=== PATIENT | male | born 1930 | race Caucasian/White ===

== ENCOUNTER 2016-08-26 23:16 | Inpatient (IN) | payer MEDICARE, OTHER ==
--- NOTE | 2016-08-26 23:36 | PDOC ---
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 As per EMS, pt received one nebulizer treatment in the ambulance. History could not be obtained from the patient. Pt does not follow commands or answer questions. <Susie Gomez - Last Filed: 08/27/16 06:01> <Benita Lamb - Last Filed: 08/27/16 06:49> - General Stated Complaint: DIFFICULTY BREATHING Time Seen by Provider: 08/26/16 23:25 Past History <Susie Gomez - Last Filed: 08/27/16 06:01> - Past Medical History Anemia: Yes Asthma: No Cancer: No Cardiac Disorders: Yes (afib) CVA: Yes (CAD) COPD: No CHF: Yes Dementia: Yes Diabetes: Yes Dialysis: Yes (MWF rt arm fistula) GI Disorders: Yes (Gerd) Disorders: Yes (obstructive uropathy) HTN: Yes Hypercholesterolemia: Yes Liver Disease: No Suicide Attempt (Hx): No Seizures: No Thyroid Disease: Yes (HYPOTHYROIDISM) - Surgical History Abdominal Surgery: Yes (gallbladder drain placed in november 2014,removed) Appendectomy: No Cardiac Surgery: Yes (CABG,THROMBECTOMY, OPEN HEART SX IN 1968) Cholecystectomy: No Lung Surgery: No Neurologic Surgery: No Orthopedic Surgery: Yes - Immunization History Td Vaccination: Yes Immunization Up to Date: Yes - Psycho/Social/Smoking Cessation Hx Anxiety: No Suicidal Ideation: No Smoking Status: No Smoking History: Former smoker Have you smoked in the past 12 months: No Number of Cigarettes Smoked Daily: 0 Cigars Per Day: 0 Hx Alcohol Use: No Drug/Substance Use Hx: No Substance Use Type: None Hx Substance Use Treatment: No <Benita Lamb - Last Filed: 08/27/16 06:49> - Past Medical History Allergies/Adverse Reactions: Allergies Allergy/AdvReac Type Severity Reaction Status Date / Time No Known Allergies Allergy Verified 07/05/16 16:09 Home Medications: Ambulatory Orders Acetaminophen [Tylenol] 325 mg PO QID 01/24/16 Aspirin [ASA -] 81 mg PO DAILY 01/24/16 Ergocalciferol [Drisdol -] 50,000 unit PO WEEKLY 01/24/16 Ipratropium/Albuterol Sulfate [Iprat-Albut 0.5-3(2.5) mg/3 ml] 3 ml IH QID 01/23 Levothyroxine [Synthroid -] 112 mcg PO DAILY 01/24/16 Magnesium Chloride [Mag64] 64 mg PO DAILY 01/24/16 Midodrine HCl 10 mg PO TID 01/24/16 Mupirocin Ointment [Bactroban 2% Ointment -] 1 applic TP BID 01/24/16 Pantoprazole Sodium [Protonix] 40 mg PO DAILY 01/24/16 Rifaximin [Xifaxan -] 550 mg PO DAILY 01/24/16 Vitamin B Complex 1 each PO DAILY 01/24/16 Lactulose (Oral Use) [Cephulac -] 10 gm PO BID 05/22/16 Lidocaine 5% Patch [Lidoderm Patch -] 1 patch TP DAILY 07/05/16 Sevelamer Carbonate [Renvela] 800 mg PO TID 07/05/16 Vit B Cmplx 3/FA/Vit C/Biotin [Hailey-Lexi Rx Tablet] 0 mg PO DAILY 07/05/16 Ergocalciferol (Vitamin D2) [Vitamin D2] 50,000 unit PO WEEKLY 08/27/16 Esomeprazole Magnesium [Nexium 24Hr] 20 mg PO DAILY 08/27/16 Review of Systems - Review of Systems Able to Perform ROS?: No (could not obtain ) <Susie Gomez - Last Filed: 08/27/16 06:01> *Physical Exam - Vital Signs Last Vital Signs Temp Pulse Resp BP Pulse Ox 98.5 F 86 24 86/45 90 L 08/26/16 23:25 08/26/16 23:25 08/26/16 23:25 08/26/16 23:25 08/26/16 23:25 - Physical Exam Comments: 08/27/16 00:42 GENERAL: + A&Ox0. HEAD: Normal with no signs of trauma. EYES: PERRLA, EOMI, sclera anicteric, conjunctiva clear. ENT: Ears normal, nares patent, oropharynx clear without exudates. Moist mucous membranes. NECK: Normal range of motion, supple without lymphadenopathy, JVD, or masses. LUNGS: +respiratory distress. Breath sounds equal, clear to auscultation bilaterally. No wheezes, and no crackles. HEART:Regular rate and rhythm, normal S1 and S2 without murmur, rub or gallop. ABDOMEN: Soft, nontender, normoactive bowel sounds. No guarding, no rebound. EXTREMITIES: Normal range of motion, no edema. No clubbing or cyanosis. No erythema, or tenderness. NEUROLOGICAL: Cranial nerves II through XII grossly intact. Normal speech. No focal neurological deficits. MUSCULOSKELETAL: Back non-tender to palpation, no CVA tenderness SKIN: Warm, Dry, normal turgor, no rashes or lesions noted. <Susie Gomez - Last Filed: 08/27/16 06:01> ED Treatment Course - LABORATORY CBC & Chemistry Diagram: 08/27/16 00:15 08/27/16 00:15 <Susie Gomez - Last Filed: 08/27/16 06:01> - LABORATORY CBC & Chemistry Diagram: 08/27/16 00:15 08/27/16 00:15 <Benita Lamb - Last Filed: 08/27/16 06:49> Medical Decision Making - Medical Decision Making 08/27/16 05:57 Dr. Jean Claude Muro was paged through his service. 08/27/16 06:01 case was discussed with Dr. Muro <Susie Gomez - Last Filed: 08/27/16 06:01> - Medical Decision Making 08/27/16 06:47 Pt comes from the [place] with SOB. He is unable to add to his history, as he is somnolent and unable to answer questions. He has a long history of medical problems. He has no fever in the ER, but he has a hisotry of COPD, as well as a history of ESRD, and he will be treated with antibiotics as well as solumedrol , and he will be treated with lasix gently 20mg, as his BP is 90s systolic. Pt will be admitted to his PMD Dr. Muro. <Benita Lamb - Last Filed: 08/27/16 06:49> *DC/Admit/Observation/Transfer - Attestations Scribe Attestion: 08/27/16 00:43 Documentation prepared by Susie Gomez, acting as medical record coder for Benita Lamb MD. <Susie Gomez - Last Filed: 08/27/16 06:01> - Discharge Dispostion Admit: Yes <Benita Lamb - Last Filed: 08/27/16 06:49> Diagnosis at time of Disposition: COPD exacerbation - Referrals
[2016-08-26 23:38] VITALS: BMI 35.9
[2016-08-27 01:00] LABS: BASOPHIL 2.4 % (0-2.0); EOSINOPHIL 4.8 % (0-4.5); MCH 33.3 pg (25.7-33.7); MEAN CELL VOLUME 107.4 fl (80-96); MEAN PLT VOLUME 8.6 fl (7.5-11.1); NEUTROPHILS 64.4 % (42.8-82.8); PLATELET COUNT 179 K/MM3 (134-434); RDW 21.3 % (11.9-15.9); WHITE BLOOD COUNT 5.5 K/mm3 (4.0-10.0)
[2016-08-27 02:01] LABS: ANISOCYTOSIS 2+; HYPOCHROMIA 2+; PLATELET COMMENT2 NO CLOTTING DETECTED; PLATELET ESTIMATE ADEQUATE (NORMAL); POIKILOCYTOSIS 2+; POLYCHROMASIA 1+
[2016-08-27 02:17] LABS: ALBUMIN 3.4 g/dl (3.4-5.0); BILIRUBIN,TOTAL 0.7 mg/dL (0.2-1.0); CALCIUM 8.8 mg/dL (8.5-10.1); CREATININE 5.3 mg/dL (0.7-1.3); TOT PROT 7.1 g/dl (6.4-8.2)
[2016-08-27] MEDS ORDERED: methylPREDNISolone NA SUCC 125 MG/2 ML VIAL IVPB ONE (02:46)
[2016-08-27] MEDS ORDERED: PIPERACILLIN/TAZOB 3.375 GM 3.375 GM in DEXTROSE 5%-WATER - 50 ML IVPB ONE (02:47)
[2016-08-27] MEDS ORDERED: PIPERACILLIN/TAZOB 3.375 GM 50 ML IVPB ONE (03:15)
[2016-08-27] MEDS ORDERED: methylPREDNISolone NA SUCC 125 MG/2 ML VIAL ONE (03:15)
[2016-08-27] MEDS ORDERED: FUROSEMIDE 40 MG/4 ML INJECTABLE VIAL IVPB ONE (06:02)
[2016-08-27] MEDS ORDERED: FUROSEMIDE 40 MG/4 ML INJECTABLE VIAL ONE (06:08)
[2016-08-27] MEDS: LEVOTHYROXINE NA 112 MCG TABLET (FP) PO SCH (09:10)
[2016-08-27] MEDS: SEVELAMER CARBONATE 800 MG TAB (FP) PO SCH ×3 (09:10→17:55)
[2016-08-27] MEDS ORDERED: PATIENT'S OWN MEDICATION (NON-FORMULARY) (Vit B Cmplx 3/Fa/Vit C/Biotin [Rena-Vite Rx Tabl PO SCH (10:00)
[2016-08-27] MEDS: ASPIRIN 81 MG CHEWABLE TABLETS PO SCH (10:05)
[2016-08-27] MEDS: MUPIROCIN 2% TOPICAL OINTMENT 22 GM TUBE TP SCH ×2 (10:05→21:42)
[2016-08-27] MEDS: LACTULOSE 20 GM/30 ML UDC (FOR ORAL USE ONLY) PO SCH ×2 (10:05→21:41)
[2016-08-27] MEDS: PANTOPRAZOLE 20 MG TABLET (FP) PO SCH (10:05)
[2016-08-27] MEDS: MAGNESIUM CL 64 MG TABLET.SA PO SCH (10:06)
[2016-08-27] MEDS: VITAMIN B COMPLEX W/C COMBO TABLET (FP) PO SCH (10:06)
[2016-08-27] MEDS: ACETAMINOPHEN 325 MG TABLET (FP) PO SCH ×4 (10:06→21:42)
[2016-08-27] MEDS: RIFAXIMIN 550 MG TABLET (UD) PO SCH (10:06)
--- NOTE | 2016-08-27 10:32 | CONSULT ---
Consult - text type - Consultation Consultation Note: Renal Consult for ESRD/Volume Overload This is a 86 year old Gentleman with PMhx of ESRD on HD (MWF), Chronic Cholecystitis, Dementia, DM, Hypertension, Afib with SOB and found to have extrensive pulmonary vascular congestion and hypoxia. Pt had regualr dialysis on Sunday. Pt is very lethargic and nto able to provide any further history. Pt on 100% NRB. Pt has chronic hypotension that limits UF during dialysis. BP is marginal but stable. No fevers. PMhx: as above Allergies: NKDA Family hx: NC Social Hx: No T/A/D ROS: unable to obtain because of clinical status Home Meds: Medication Instructions Recorded Acetaminophen [Tylenol] 325 mg PO QID 01/24/16 Aspirin [ASA -] 81 mg PO DAILY 01/24/16 Ergocalciferol [Drisdol -] 50,000 unit PO WEEKLY 01/24/16 Ipratropium/Albuterol Sulfate 3 ml IH QID 01/24/16 [Iprat-Albut 0.5-3(2.5) mg/3 ml] Levothyroxine [Synthroid -] 112 mcg PO DAILY 01/24/16 Magnesium Chloride [Mag64] 64 mg PO DAILY 01/24/16 Midodrine HCl 10 mg PO TID 01/24/16 Mupirocin Ointment [Bactroban 2% 1 applic TP BID 01/24/16 Ointment -] Pantoprazole Sodium [Protonix] 40 mg PO DAILY 01/24/16 Rifaximin [Xifaxan -] 550 mg PO DAILY 01/24/16 Vitamin B Complex 1 each PO DAILY 01/24/16 Lactulose (Oral Use) [Cephulac -] 10 gm PO BID 05/22/16 Lidocaine 5% Patch [Lidoderm Patch 1 patch TP DAILY 07/05/16 -] Sevelamer Carbonate [Renvela] 800 mg PO TID 07/05/16 Vit B Cmplx 3/FA/Vit C/Biotin 0 mg PO DAILY 07/05/16 [Hailey-Lexi Rx Tablet] Ergocalciferol (Vitamin D2) 50,000 unit PO WEEKLY 08/27/16 [Vitamin D2] Esomeprazole Magnesium [Nexium 20 mg PO DAILY 01/22/17 24Hr] Vital Signs Temperature 98.5 F 08/26/16 23:25 Pulse Rate 90 08/27/16 09:18 Respiratory Rate 20 08/27/16 09:18 Blood Pressure 95/51 08/27/16 09:18 O2 Sat by Pulse Oximetry (%) 98 08/27/16 09:18 Intake & Output 08/24/16 08/25/16 08/26/16 08/27/16 23:59 23:59 23:59 23:59 Weight 250 lb Gen: Lethargic, respond to painful stimuli HEENT: NC/AT, midl jvd, Neck supple CVS: RRR, No M/R Lungs: Dec BS throughout the lung mandujano Abd: soft NT/ND Ext: No edema, clubbing or cyanosis Neuro: No folowing commands CBC, BMP 08/27/16 00:15 08/27/16 00:15 Laboratory Tests 08/27/16 00:15 Calcium 8.8 Albumin 3.4 Current Medications Acetaminophen (Tylenol -) 325 mg PO QID [facility] Last Admin: 08/27/16 10:06 Dose: Not Given Aspirin (Asa -) 81 mg PO DAILY [facility] Last Admin: 08/27/16 10:05 Dose: Not Given Ergocalciferol (Drisdol -) 50,000 unit PO We@1000 [facility] Heparin Sodium (Porcine) (Heparin -) 5,000 unit SQ BID [facility] Lactulose (Cephulac (Oral Use)) 10 gm PO BID [facility] Last Admin: 08/27/16 10:05 Dose: Not Given Levothyroxine Sodium (Synthroid -) 112 mcg PO AM [facility] Last Admin: 08/27/16 09:10 Dose: Not Given Lidocaine (Lidoderm Patch -) 1 patch TP DAILY [facility] Magnesium Chloride (Slow-Mag -) 64 mg PO DAILY [facility] Last Admin: 08/27/16 10:06 Dose: Not Given Midodrine (Proamatine -) 10 mg PO TID-MID [facility] Multivitamins (Total B With C -) 1 each PO DAILY [facility] Last Admin: 08/27/16 10:06 Dose: Not Given Mupirocin (Bactroban 2% Ointment -) 1 applic TP BID [facility] Last Admin: 08/27/16 10:05 Dose: Not Given Non-Formulary Medication (Vit B Cmplx 3/Fa/Vit C/Biotin [Hailey-Lexi Rx Tablet]) 1 tab PO DAILY [facility] Pantoprazole Sodium (Protonix -) 20 mg PO DAILY [facility] Last Admin: 08/27/16 10:05 Dose: Not Given Rifaximin (Xifaxan -) 550 mg PO DAILY [facility] Last Admin: 08/27/16 10:06 Dose: Not Given Sevelamer Carbonate (Renvela -) 800 mg PO TIDCM [facility] Last Admin: 08/27/16 09:10 Dose: Not Given A/P This is a 86 year old Gentleman with PMhx of ESRD on HD (MWF), Chronic Cholecystitis, Dementia, DM, Hypertension, Afib with SOB and found to have extrensive pulmonary vascular congestion and hypoxia #SOB/Hypoxia/Fluid over laod/CHF/AMS Pt will need urgent dialysis for fluid removal Diuretics unlikely to be of benefit given advanced kidney disease continue supplaental O2 Check ABB to r/o retention given AMS ICU Evalulaion - Discussed with Dr. Coates can be transferred to ICU May need BIPAP #ESRD Plan for urgent HD today Goal UF 2-2.5L with albumin and Midodrine support additional HD/UF as needed to achieve evolemia #Anemia Hgb at [facility] Thank you will follow Jamir Wilson DO
--- NOTE | 2016-08-27 10:43 | HP ---
Admitting History and Physical - Admission Chief Complaint: low O2 sats History of Present Illness[facility]. has been havign fluid overload, generally treatmed with his dialysis. Nephew notes that patient was beign considered for extra dialysis treatments due to fluid overload, but as the week ended, notes that it was determined to hold off additional treatment. However, oxygen saturation found to be in 80's yesterday and CXR at [place] reportedly showed "fluid", so sent to hospital here. Patient lethargic, unable to give additional history, but nephew notes patient had some increased swelling in fingers and arms, which seems improved currently (did receive a dose of lasix in ED). No fevers noted. Patient had a his AV graft changed recently due to infeciton. - Past Medical History SIGN MAINTENANCE: Yes: Dementia Cardiovascular: Yes: CAD, CHF, HTN, Hyperlipdemia Gastrointestinal: Yes: Other (COLON POLYPS) Hepatobiliary: Yes: Cholelithiasis, Cholecystitis Renal/: Yes: Renal Failure, Renal Inusuff, Hemodialysis Heme/Onc: Yes: Anemia - Past Surgical History Past Surgical History: Yes: CABG - Smoking History Smoking history: Former smoker Have you smoked in the past 12 months: No Aproximately how many cigarettes per day: 0 - Alcohol/Substance Use Hx Alcohol Use: No - Social History ADL: Support Services History of Recent Travel: No Home Medications - Allergies Allergies/Adverse Reactions: Allergies Allergy/AdvReac Type Severity Reaction Status Date / Time No Known Allergies Allergy Verified 07/05/16 16:09 - Home Medications Home Medications: Ambulatory Orders Acetaminophen [Tylenol] 325 mg PO QID 01/24/16 Aspirin [ASA -] 81 mg PO DAILY 01/24/16 Ergocalciferol [Drisdol -] 50,000 unit PO WEEKLY 01/24/16 Ipratropium/Albuterol Sulfate [Iprat-Albut 0.5-3(2.5) mg/3 ml] 3 ml IH QID 01/23 Levothyroxine [Synthroid -] 112 mcg PO DAILY 01/24/16 Magnesium Chloride [Mag64] 64 mg PO DAILY 01/24/16 Midodrine HCl 10 mg PO TID 01/24/16 Mupirocin Ointment [Bactroban 2% Ointment -] 1 applic TP BID 01/24/16 Pantoprazole Sodium [Protonix] 40 mg PO DAILY 01/24/16 Rifaximin [Xifaxan -] 550 mg PO DAILY 01/24/16 Vitamin B Complex 1 each PO DAILY 01/24/16 Lactulose (Oral Use) [Cephulac -] 10 gm PO BID 05/22/16 Lidocaine 5% Patch [Lidoderm Patch -] 1 patch TP DAILY 07/05/16 Sevelamer Carbonate [Renvela] 800 mg PO TID 07/05/16 Vit B Cmplx 3/FA/Vit C/Biotin [Hailey-Lexi Rx Tablet] 0 mg PO DAILY 07/05/16 Ergocalciferol (Vitamin D2) [Vitamin D2] 50,000 unit PO WEEKLY 08/27/16 Esomeprazole Magnesium [Nexium 24Hr] 20 mg PO DAILY 08/27/16 Family Disease History - Family Disease History Family History: Unable to Obtain Review of Systems - Review of Systems Constitutional: reports: Lethargy. denies: Fever, Loss of Appetite HENT: denies: Difficult Swallowing, Epistaxis, Throat Pain Neck: denies: Pain on Movement, Stiffness, Tenderness Cardiovascular: denies: Chest Pain, Palpitations Respiratory: denies: Cough, SOB Gastrointestinal: reports: Bloating. denies: Abdominal Pain, Constipation, Diarrhea, Vomiting Physical Examination Vital Signs: Vital Signs Temperature 98.5 F 08/26/16 23:25 Pulse Rate 90 08/27/16 09:18 Respiratory Rate 20 08/27/16 09:18 Blood Pressure 95/51 08/27/16 09:18 O2 Sat by Pulse Oximetry (%) 98 08/27/16 09:18 Constitutional: Yes: Other (lethargic) HENT: Yes: Atraumatic, Normocephalic Cardiovascular: Yes: Regular Rate and Rhythm, S1, S2. No: Murmur Respiratory: Yes: Regular, Other (upper airway congestion) Gastrointestinal: Yes: Normal Bowel Sounds, Soft, Abdomen, Obese. No: Distention, Tenderness Edema: Yes Edema: LLE: Trace, RLE: Trace Neurological: Yes: Lethargy Labs: Laboratory Last Values WBC 5.5 K/mm3 (4.0-10.0) 08/27/16 00:15 RBC 3.23 M/mm3 (4.00-5.60) L 08/27/16 00:15 Hgb 10.8 GM/dL (11.7-16.9) L 08/27/16 00:15 Hct 34.7 % (35.4-49) L 08/27/16 00:15 MCV 107.4 fl (80-96) H 08/27/16 00:15 MCHC 31.0 g/dl (32.0-35.9) L 08/27/16 00:15 RDW 21.3 % (11.9-15.9) H 08/27/16 00:15 Plt Count 179 K/MM3 (134-434) D 08/27/16 00:15 MPV 8.6 fl (7.5-11.1) 08/27/16 00:15 Neutrophils % 64.4 % (42.8-82.8) 08/27/16 00:15 Lymphocytes % 15.9 % (8-40) 08/27/16 00:15 Monocytes % 12.5 % (3.8-10.2) H 08/27/16 00:15 Eosinophils % 4.8 % (0-4.5) H D 08/27/16 00:15 Basophils % 2.4 % (0-2.0) H D 08/27/16 00:15 Differential Comment Slide scanned 08/27/16 00:15 Platelet Estimate Adequate (NORMAL) 08/27/16 00:15 Platelet Comment No clumping noted 08/27/16 00:15 Platelet Comment No clotting detected 08/27/16 00:15 Polychromasia 1+ 08/27/16 00:15 Hypochromic-Microcytic 2+ 08/27/16 00:15 Poikilocytosis 2+ 08/27/16 00:15 Anisocytosis 2+ 08/27/16 00:15 Macrocytosis 2+ 08/27/16 00:15 Sodium 144 mmol/L (136-145) 08/27/16 00:15 Potassium 4.2 mmol/L (3.5-5.1) D 08/27/16 00:15 Chloride 107 mmol/L (98-107) 08/27/16 00:15 Carbon Dioxide 25 mmol/L (21-32) 08/27/16 00:15 Anion Gap 12 (8-16) 08/27/16 00:15 BUN 34 mg/dL (7-18) H D 08/27/16 00:15 Creatinine 5.3 mg/dL (0.7-1.3) H D 08/27/16 00:15 Creat Clearance w eGFR 10.29 (>60) 08/27/16 00:15 Random Glucose 105 mg/dL (74-106) 08/27/16 00:15 Calcium 8.8 mg/dL (8.5-10.1) 08/27/16 00:15 Total Bilirubin 0.7 mg/dL (0.2-1.0) D 08/27/16 00:15 AST 21 U/L (15-37) 08/27/16 00:15 ALT 20 U/L (12-78) 08/27/16 00:15 Alkaline Phosphatase 173 U/L (45-117) H 08/27/16 00:15 Total Protein 7.1 g/dl (6.4-8.2) 08/27/16 00:15 Albumin 3.4 g/dl (3.4-5.0) 08/27/16 00:15 Imaging - Results Chest X-ray: Report Reviewed (congestive changes, worsened compared to previous) Problem List - Problems (1) Fluid excess Assessment/Plan: -to get dialysis today (discussed with renal) and to go to ICU given lethargy and low blood pressure Code(s): E87.70 - FLUID OVERLOAD, UNSPECIFIED (2) End stage renal disease on dialysis Assessment/Plan: -renal evaluated -for dialysis today Code(s): N18.6 - END STAGE RENAL DISEASE Z99.2 - DEPENDENCE ON RENAL DIALYSIS (3) Hypoxia Assessment/Plan: -improved with supplemental O2 Code(s): R09.02 - HYPOXEMIA (4) Hypotension Assessment/Plan: -baseline low blood pressure (on Midodrine) -usually systolic BP in upper 80's to 90 Code(s): I95.9 - HYPOTENSION, UNSPECIFIED Qualifiers: Hypotension type: hemodialysis-associated hypotension Qualified Code(s) : I95.3 - Hypotension of hemodialysis (5) Atrial fibrillation Assessment/Plan: -not on AC as fall risk Code(s): I48.91 - UNSPECIFIED ATRIAL FIBRILLATION (6) Cholecystitis, chronic Assessment/Plan: -stable Code(s): K81.1 - CHRONIC CHOLECYSTITIS (7) Hepatic encephalopathy Assessment/Plan: -check [place] level (may need extra dose lactulose) Code(s): K72.90 - HEPATIC FAILURE, UNSPECIFIED WITHOUT COMA
[2016-08-27 11:07] LABS: ALBUMIN 3.4 g/dl (3.4-5.0); BILIRUBIN,TOTAL 0.8 mg/dL (0.2-1.0); CALCIUM 8.7 mg/dL (8.5-10.1); CREATININE 5.6 mg/dL (0.7-1.3); TOT PROT 7.2 g/dl (6.4-8.2)
[2016-08-27 11:20] LABS: ARTERIAL BLD GAS O2 SATURATION 99.6 % (90-98.9); ARTERIAL BLOOD GAS pH 7.11 (7.35-7.45)
[2016-08-27 11:21] LABS: ARTERIAL BLOOD GAS BASE EXCESS -8.9 meq/l (-2-2)
[2016-08-27 11:22] LABS: ALLENS TEST POSITIVE; ART PUNCT SITE RIGHT RADIAL; LPM/O2% 100%; PT. ON O2? YES; TYPE OF O2 NRM
--- NOTE | 2016-08-27 11:57 | CONSULT ---
Consult Consult Specialty:: PULMONARY/CCM Referred by:: Dr. Wilson Reason for Consultation:: respiratory failure - History of Present Illness Chief Complaint: hypoxia History of Present Illness: 86yo male with h/o HTN, CAD s/p CABG, ESRD on HD, RV dysfunction who was sent from the senior living after being found hypoxic and lethargic. Pt currently in the ICU on NRB, lethargic, unable to provide further history at this time. Per chart, he had not missed any dialysis sessions but was noted by family to have increased swelling in his extremities. CXR done on admission showing large bilateral pleural effusions and pulmonary vascular congestion. No fevers recorded, ABG showing mixed metabolic and respiratory acidosis. BiPAP called stat to bedside as pt DNR/DNI. 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 Cardio/Vascular: Yes: CAD, CHF, HTN, Hyperlipdemia Gastrointestinal: Yes: Other (COLON POLYPS) Hepatobiliary: Yes: Cholelithiasis, Cholecystitis Renal/: Yes: Renal Failure, Renal Inusuff, Hemodialysis - Past Surgical History Past Surgical History: Yes: AV Fistula/Graft, CABG - Alcohol/Substance Use Hx Alcohol Use: No - Smoking History Smoking history: Former smoker Have you smoked in the past 12 months: No Aproximately how many cigarettes per day: 0 - Social History ADL: Support Services History of Recent Travel: No Home Medications - Allergies Allergies/Adverse Reactions: Allergies Allergy/AdvReac Type Severity Reaction Status Date / Time No Known Allergies Allergy Verified 07/05/16 16:09 - Home Medications Home Medications: Ambulatory Orders Acetaminophen [Tylenol] 325 mg PO QID 01/24/16 Aspirin [ASA -] 81 mg PO DAILY 01/24/16 Ergocalciferol [Drisdol -] 50,000 unit PO WEEKLY 01/24/16 Ipratropium/Albuterol Sulfate [Iprat-Albut 0.5-3(2.5) mg/3 ml] 3 ml IH QID 01/23 Levothyroxine [Synthroid -] 112 mcg PO DAILY 01/24/16 Magnesium Chloride [Mag64] 64 mg PO DAILY 01/24/16 Midodrine HCl 10 mg PO TID 01/24/16 Mupirocin Ointment [Bactroban 2% Ointment -] 1 applic TP BID 01/24/16 Pantoprazole Sodium [Protonix] 40 mg PO DAILY 01/24/16 Rifaximin [Xifaxan -] 550 mg PO DAILY 01/24/16 Vitamin B Complex 1 each PO DAILY 01/24/16 Lactulose (Oral Use) [Cephulac -] 10 gm PO BID 05/22/16 Lidocaine 5% Patch [Lidoderm Patch -] 1 patch TP DAILY 07/05/16 Sevelamer Carbonate [Renvela] 800 mg PO TID 07/05/16 Vit B Cmplx 3/FA/Vit C/Biotin [Hailey-Lexi Rx Tablet] 0 mg PO DAILY 07/05/16 Ergocalciferol (Vitamin D2) [Vitamin D2] 50,000 unit PO WEEKLY 08/27/16 Esomeprazole Magnesium [Nexium 24Hr] 20 mg PO DAILY 08/27/16 Family Disease History - Family Disease History Family History: Unable to Obtain Review of Systems Unable to obtain ROS, reason: pt lethargic Physical Exam Vital Signs: Vital Signs Temperature 98.5 F 08/27/16 10:37 Pulse Rate 82 08/27/16 11:36 Respiratory Rate 16 08/27/16 11:36 Blood Pressure 96/50 08/27/16 11:36 O2 Sat by Pulse Oximetry (%) 99 08/27/16 11:36 Constitutional: Yes: Moderate Distress (tachypneic at rest, lethargic) Eyes: Yes: Conjunctiva Clear, EOM Intact HENT: Yes: Atraumatic, Normocephalic Neck: Yes: Supple, Trachea Midline Cardiovascular: Yes: Regular Rate and Rhythm Respiratory: Yes: Rhonchi Gastrointestinal: Yes: Normal Bowel Sounds, Soft. No: Tenderness Extremities: Yes: Other (RUE AVG) Edema: No Neurological: Yes: Lethargy Labs: CBC, BMP 08/27/16 10:33 Imaging - Results Chest X-ray: Report Reviewed, Image Reviewed (large bilateral effusions, pulmonary vascular congestion) Problem List - Problems (1) Acute hypercapnic respiratory failure Code(s): J96.02 - ACUTE RESPIRATORY FAILURE WITH HYPERCAPNIA (2) Altered mental status Code(s): R41.82 - ALTERED MENTAL STATUS, UNSPECIFIED (3) End stage renal disease on dialysis Code(s): N18.6 - END STAGE RENAL DISEASE Z99.2 - DEPENDENCE ON RENAL DIALYSIS (4) Pleural effusion Code(s): J90 - PLEURAL EFFUSION, NOT ELSEWHERE CLASSIFIED (5) Acute on chronic diastolic (congestive) heart failure Code(s): I50.33 - ACUTE ON CHRONIC DIASTOLIC (CONGESTIVE) HEART FAILURE (6) Liver cirrhosis Code(s): K74.60 - UNSPECIFIED CIRRHOSIS OF LIVER (7) Hepatic encephalopathy Code(s): K72.90 - HEPATIC FAILURE, UNSPECIFIED WITHOUT COMA (8) Atrial fibrillation Code(s): I48.91 - UNSPECIFIED ATRIAL FIBRILLATION Assessment/Plan Altered Mental Status Acute Hypercapneic Respiratory Failure ESRD on HD Acute on Chronic LV Diastolic Heart Failure Atrial Fibrillation RV Dysfunction Pleural Effusions Liver Cirrhosis r/o Hepatic Encephalopathy - placed on BiPAP 15/5 with adequate tidal volumes - emergent HD with ultrafiltration - f/u ammonia level - check ABG after HD - cycle cardiac enzymes to r/o [place] - echocardiogram - aspiration precautions - titrate FiO2 to keep SpO2 >90% - may need NGT for meds - DVT/GI prophylaxis - prognosis guarded - ICU monitoring Thank you for this consult Adalberto Coates MD
[2016-08-27 12:56] LABS: TROPONIN I 0.22 ng/ml (0.00-0.05)
[2016-08-27] MEDS: ALBUMIN HUMAN 25% 100 ML VIAL IVPB SCH ×4 (13:30→15:00)
--- NOTE | 2016-08-27 13:31 | PN ---
Progress Note (short form) - Note Progress Note: Patient transfered last night from [facility] due to hypoxia and change in mental status Over last week patient was known to be fluid overloaded -- recent CXR showed bilat pleural effusion. He did not skip any HD treatment ( HD - MWF) Admitted to ICU patient on bipap niece at bedside ( Sisi Berrios -HCP) patient unresponsive to verbal stimuli withdraws to painful discussed with Sisi berrios ( HCP)- possibility of using pressors to support BP espeially during HD / she declines stating the patient has made his wishes clear and the family agrees. They do not want a central line placement / no intubation / no resuscitation ( documents have been forwarded from [facility]) I have spoken to family in the past -- their wishes have been consistent. Vital Signs Period Temp Pulse Resp BP Sys/Peck Pulse Ox Last 24 Hr 98.5 F-98.5 F 72-96 16-24 76-98/41-55 90-[address] sats at 77-88 % Bp 95/67 not responding to verbal stimuli lungs decreased BS bilat on lateral / rhonchi anteriorly abd soft non tender ext + edema scheduled for HD today discussed with niece ability to dialyze will be limited by patients blood pressure she understands -- discussed care with Nurse and padder they will inform renal and proceed with HD as tolerated Intake & Output 08/24/16 08/25/16 08/26/16 08/27/16 23:59 23:59 23:59 23:59 Weight 250 lb Active Medications Acetaminophen (Tylenol -) 325 mg PO QID [facility] Last Admin: 08/27/16 10:06 Dose: Not Given Aspirin (Asa -) 81 mg PO DAILY [facility] Last Admin: 08/27/16 10:05 Dose: Not Given Ergocalciferol (Drisdol -) 50,000 unit PO We@1000 [facility] Heparin Sodium (Porcine) (Heparin -) 5,000 unit SQ BID [facility] Lactulose (Cephulac (Oral Use)) 10 gm PO BID [facility] Last Admin: 08/27/16 10:05 Dose: Not Given Levothyroxine Sodium (Synthroid -) 112 mcg PO AM [facility] Last Admin: 08/27/16 09:10 Dose: Not Given Lidocaine (Lidoderm Patch -) 1 patch TP DAILY [facility] Magnesium Chloride (Slow-Mag -) 64 mg PO DAILY [facility] Last Admin: 08/27/16 10:06 Dose: Not Given Midodrine (Proamatine -) 10 mg PO TID-MID [facility] Multivitamins (Total B With C -) 1 each PO DAILY [facility] Last Admin: 08/27/16 10:06 Dose: Not Given Mupirocin (Bactroban 2% Ointment -) 1 applic TP BID [facility] Last Admin: 08/27/16 10:05 Dose: Not Given Non-Formulary Medication (Vit B Cmplx 3/Fa/Vit C/Biotin [Hailey-Lexi Rx Tablet]) 1 tab PO DAILY [facility] [place] Pantoprazole Sodium (Protonix -) 20 mg PO DAILY [facility] Last Admin: 08/27/16 10:05 Dose: Not Given Rifaximin (Xifaxan -) 550 mg PO DAILY [facility] Last Admin: 08/27/16 10:06 Dose: Not Given Sevelamer Carbonate (Renvela -) 800 mg PO TIDCM [facility] Last Admin: 08/27/16 09:10 Dose: Not Given Laboratory Results - last 24 hr 08/27/16 08/27/16 08/27/16 00:15 00:15 10:32 WBC 5.5 RBC 3.23 L Hgb 10.8 L Hct 34.7 L MCV 107.4 H MCHC 31.0 L RDW 21.3 H Plt Count 179 D MPV 8.6 Neutrophils % 64.4 Lymphocytes % 15.9 Monocytes % 12.5 H Eosinophils % 4.8 H D Basophils % 2.4 H D Differential Comment Slide scanned Platelet Estimate Adequate Platelet Comment No clotting detected Polychromasia 1+ Hypochromic-Microcytic 2+ Poikilocytosis 2+ Anisocytosis 2+ Macrocytosis 2+ Anticoagulation Therapy Y Puncture Site Right radial ABG pH 7.11 L* ABG pCO2 at Pt Temp 68.6 H* ABG pO2 at Pt Temp 226.0 H* ABG HCO3 21.0 L ABG O2 Sat (Measured) 99.6 H* ABG O2 Content 15.3 ABG Base Excess -8.9 L Rodger Test Positive O2 Delivery Device Nrm Oxygen Flow Rate 100% Vent Mode Y Vent Rate Y Mechanical Rate Y Pressure Support Vent Y Sodium 144 Potassium 4.2 D Chloride 107 Carbon Dioxide 25 Anion Gap 12 BUN 34 H D Creatinine 5.3 H D Creat Clearance w eGFR 10.29 Random Glucose 105 Calcium 8.8 Total Bilirubin 0.7 D AST 21 ALT 20 Alkaline Phosphatase 173 H Ammonia Creatine Kinase Troponin I Total Protein 7.1 Albumin 3.4 08/27/16 08/27/16 10:33 11:05 WBC RBC Hgb Hct MCV MCHC RDW Plt Count MPV Neutrophils % Lymphocytes % Monocytes % Eosinophils % Basophils % Differential Comment Platelet Estimate Platelet Comment Polychromasia Hypochromic-Microcytic Poikilocytosis Anisocytosis Macrocytosis Anticoagulation Therapy Puncture Site ABG pH ABG pCO2 at Pt Temp ABG pO2 at Pt Temp ABG HCO3 ABG O2 Sat (Measured) ABG O2 Content ABG Base Excess Rodger Test O2 Delivery Device Oxygen Flow Rate Vent Mode Vent Rate Pressure Support Vent Sodium 142 Potassium 4.9 Chloride 110 H Carbon Dioxide 23 Anion Gap 9 BUN 39 H Creatinine 5.6 H Creat Clearance w eGFR 9.66 Random Glucose 148 H D Calcium 8.7 Total Bilirubin 0.8 AST 29 D ALT 24 Alkaline Phosphatase 180 H Ammonia 60.60 H Creatine Kinase 48 Troponin I 0.22 H D Total Protein 7.2 Albumin 3.4 Problem List - Problems (1) Hypoxia Code(s): R09.02 - HYPOXEMIA (2) Fluid excess Code(s): E87.70 - FLUID OVERLOAD, UNSPECIFIED (3) Altered mental status Code(s): R41.82 - ALTERED MENTAL STATUS, UNSPECIFIED (4) Acute on chronic diastolic (congestive) heart failure Code(s): I50.33 - ACUTE ON CHRONIC DIASTOLIC (CONGESTIVE) HEART FAILURE (5) Liver cirrhosis Code(s): K74.60 - UNSPECIFIED CIRRHOSIS OF LIVER (6) Pleural effusion Code(s): J90 - PLEURAL EFFUSION, NOT ELSEWHERE CLASSIFIED (7) Altered awareness, transient Code(s): R40.4 - TRANSIENT ALTERATION OF AWARENESS (8) Atrial fibrillation Code(s): I48.91 - UNSPECIFIED ATRIAL FIBRILLATION (9) CHF (congestive heart failure) Code(s): I50.9 - HEART FAILURE, UNSPECIFIED Qualifiers: Congestive heart failure type: unspecified congestive heart failure type Congestive heart failure chronicity: acute Qualified Code(s): I50.9 - Heart failure, unspecified (10) End stage renal disease on dialysis Code(s): N18.6 - END STAGE RENAL DISEASE Z99.2 - DEPENDENCE ON RENAL DIALYSIS (11) Hepatic encephalopathy Code(s): K72.90 - HEPATIC FAILURE, UNSPECIFIED WITHOUT COMA (12) Hypothyroidism Code(s): E03.9 - HYPOTHYROIDISM, UNSPECIFIED (13) Lethargy Code(s): R53.83 - OTHER FATIGUE
[2016-08-27] MEDS: MIDODRINE HCL 5 MG TABLET PO SCH ×2 (14:00→18:26)
[2016-08-27] MEDS: HEPARIN NA (PORCINE) 5,000 UNITS/ML 1ML VIAL SQ SCH ×2 (19:48→21:43)
[2016-08-27] MEDS: LIDOCAINE 5% TOPICAL PATCH TP SCH (19:49)
[2016-08-28] MEDS ORDERED: SODIUM CHLORIDE 100 ML IV STA (02:55)
[2016-08-28 06:34] LABS: BASOPHIL 0.9 % (0-2.0); MCH 33.7 pg (25.7-33.7); MCHC 31.5 g/dl (32.0-35.9); MEAN CELL VOLUME 107.3 fl (80-96); MEAN PLT VOLUME 8.9 fl (7.5-11.1); NEUTROPHILS 90.6 % (42.8-82.8); PLATELET COUNT 140 K/MM3 (134-434); RDW 20.4 % (11.9-15.9); WHITE BLOOD COUNT 6.3 K/mm3 (4.0-10.0)
[2016-08-28 06:50] LABS: ALBUMIN 3.8 g/dl (3.4-5.0); CALCIUM 7.9 mg/dL (8.5-10.1); CREATININE 3.8 mg/dL (0.7-1.3); MAGNESIUM 2.2 mg/dL (1.8-2.4); PHOSPHOROUS 4.5 mg/dL (2.5-4.9)
[2016-08-28 06:52] LABS: BILIRUBIN,TOTAL 0.8 mg/dL (0.2-1.0); TOT PROT 6.9 g/dl (6.4-8.2)
[2016-08-28] MEDS: LEVOTHYROXINE NA 112 MCG TABLET (FP) PO SCH (06:52)
[2016-08-28 06:55] LABS: TROPONIN I 0.2 ng/ml (0.00-0.05)
[2016-08-28 07:22] LABS: ALLENS TEST POSITIVE; ART PUNCT SITE LEFT BRACHIAL; ARTERIAL BLOOD GAS BASE EXCESS 0.1 meq/l (-2-2); ARTERIAL BLOOD GAS HCO3 28.6 meq/L (22-26); LPM/O2% 100%; MECH. VENT. BIPAP; PT. ON O2? YES; TYPE OF O2 BIPAP
[2016-08-28 07:23] LABS: ARTERIAL BLOOD GAS pH 7.21 (7.35-7.45); VENT RATE 14; VT/PRESS 16/6
--- NOTE | 2016-08-28 09:44 | PN ---
Progress Note (short form) - Note Progress Note: on Bipap more alert today currently on HD Yesterday removed about 2 K today expected to remove 2 additional K Bp remains marginal but acceptable Vital Signs Period Temp Pulse Resp BP Sys/Peck Pulse Ox Last 24 Hr 97.8 F-98.8 F 77-95 14-20 57-126/35-109 90-99 Intake & Output 08/25/16 08/26/16 08/27/16 08/28/16 23:59 23:59 23:59 23:59 Intake Total 100 Output Total 100 Balance -100 100 Weight 250 lb 137 lb 2 oz Active Medications Acetaminophen (Tylenol -) 325 mg PO QID [facility] Last Admin: 08/27/16 21:42 Dose: Not Given Aspirin (Asa -) 81 mg PO DAILY [facility] Last Admin: 08/27/16 10:05 Dose: Not Given Ergocalciferol (Drisdol -) 50,000 unit PO We@1000 [facility] Heparin Sodium (Porcine) (Heparin -) 5,000 unit SQ BID [facility] Last Admin: 08/27/16 21:43 Dose: 5,000 unit Lactulose (Cephulac (Oral Use)) 10 gm PO BID [facility] Last Admin: 08/27/16 21:41 Dose: Not Given Levothyroxine Sodium (Synthroid -) 112 mcg PO AM [facility] Last Admin: 08/28/16 06:52 Dose: Not Given Lidocaine (Lidoderm Patch -) 1 patch TP DAILY [facility] Last Admin: 08/27/16 19:49 Dose: Not Given Magnesium Chloride (Slow-Mag -) 64 mg PO DAILY [facility] Last Admin: 08/27/16 10:06 Dose: Not Given Midodrine (Proamatine -) 10 mg PO TID-MID [facility] Last Admin: 08/27/16 18:26 Dose: Not Given Multivitamins (Total B With C -) 1 each PO DAILY [facility] Last Admin: 08/27/16 10:06 Dose: Not Given Mupirocin (Bactroban 2% Ointment -) 1 applic TP BID [facility] Last Admin: 08/27/16 21:42 Dose: 1 applic Non-Formulary Medication (Vit B Cmplx 3/Fa/Vit C/Biotin [Ahiley-Lexi Rx Tablet]) 1 tab PO DAILY [facility] Pantoprazole Sodium (Protonix -) 20 mg PO DAILY [facility] Last Admin: 08/27/16 10:05 Dose: Not Given Rifaximin (Xifaxan -) 550 mg PO DAILY [facility] Last Admin: 08/27/16 10:06 Dose: Not Given Sevelamer Carbonate (Renvela -) 800 mg PO TIDCM [facility] Last Admin: 08/27/16 17:55 Dose: Not Given Bipap heart irregular lungs improved BS bilat abd soft non tender ext no edema Problem List - Problems (1) Hypoxia Code(s): R09.02 - HYPOXEMIA (2) Fluid excess Code(s): E87.70 - FLUID OVERLOAD, UNSPECIFIED (3) Altered mental status Code(s): R41.82 - ALTERED MENTAL STATUS, UNSPECIFIED (4) Acute on chronic diastolic (congestive) heart failure Code(s): I50.33 - ACUTE ON CHRONIC DIASTOLIC (CONGESTIVE) HEART FAILURE (5) Liver cirrhosis Code(s): K74.60 - UNSPECIFIED CIRRHOSIS OF LIVER (6) Pleural effusion Code(s): J90 - PLEURAL EFFUSION, NOT ELSEWHERE CLASSIFIED (7) Altered awareness, transient Code(s): R40.4 - TRANSIENT ALTERATION OF AWARENESS (8) Atrial fibrillation Code(s): I48.91 - UNSPECIFIED ATRIAL FIBRILLATION (9) CHF (congestive heart failure) Code(s): I50.9 - HEART FAILURE, UNSPECIFIED Qualifiers: Qualified Code(s): I50.9 - Heart failure, unspecified (10) End stage renal disease on dialysis Code(s): N18.6 - END STAGE RENAL DISEASE Z99.2 - DEPENDENCE ON RENAL DIALYSIS (11) Hepatic encephalopathy Code(s): K72.90 - HEPATIC FAILURE, UNSPECIFIED WITHOUT COMA (12) Hypothyroidism Code(s): E03.9 - HYPOTHYROIDISM, UNSPECIFIED (13) Lethargy Code(s): R53.83 - OTHER FATIGUE
--- NOTE | 2016-08-28 10:14 | PN ---
Progress Note, Physician Chief Complaint: Patient in ICU. On Bipap. More awake and alert. BP systolic 80-90, which is his usual. Hemodialysis in progress. UF goal 2.5 Kg. - Current Medication List Current Medications: Active Medications Acetaminophen (Tylenol -) 325 mg PO QID [facility] Last Admin: 08/27/16 21:42 Dose: Not Given Aspirin (Asa -) 81 mg PO DAILY [facility] Last Admin: 08/27/16 10:05 Dose: Not Given Ergocalciferol (Drisdol -) 50,000 unit PO We@1000 [facility] Heparin Sodium (Porcine) (Heparin -) 5,000 unit SQ BID [facility] Last Admin: 08/27/16 21:43 Dose: 5,000 unit Lactulose (Cephulac (Oral Use)) 10 gm PO BID [facility] Last Admin: 08/27/16 21:41 Dose: Not Given Levothyroxine Sodium (Synthroid -) 112 mcg PO AM [facility] Last Admin: 08/28/16 06:52 Dose: Not Given Lidocaine (Lidoderm Patch -) 1 patch TP DAILY [facility] Last Admin: 08/27/16 19:49 Dose: Not Given Magnesium Chloride (Slow-Mag -) 64 mg PO DAILY [facility] Last Admin: 08/27/16 10:06 Dose: Not Given Midodrine (Proamatine -) 10 mg PO TID-MID [facility] Last Admin: 08/27/16 18:26 Dose: Not Given Multivitamins (Total B With C -) 1 each PO DAILY [facility] Last Admin: 08/27/16 10:06 Dose: Not Given Mupirocin (Bactroban 2% Ointment -) 1 applic TP BID [facility] Last Admin: 08/27/16 21:42 Dose: 1 applic Non-Formulary Medication (Vit B Cmplx 3/Fa/Vit C/Biotin [Hailey-Lexi Rx Tablet]) 1 tab PO DAILY [facility] Pantoprazole Sodium (Protonix -) 20 mg PO DAILY [facility] Last Admin: 08/27/16 10:05 Dose: Not Given Rifaximin (Xifaxan -) 550 mg PO DAILY [facility] Last Admin: 08/27/16 10:06 Dose: Not Given Sevelamer Carbonate (Renvela -) 800 mg PO TIDCM [facility] Last Admin: 08/27/16 17:55 Dose: Not Given - Objective Vital Signs: Vital Signs Temperature 97.8 F 08/28/16 07:20 Pulse Rate 89 08/28/16 09:49 Respiratory Rate 18 08/28/16 09:30 Blood Pressure 87/44 08/28/16 09:30 O2 Sat by Pulse Oximetry (%) 97 08/28/16 09:49 Constitutional: Yes: Calm, Anxious, Ashen, Moderate Distress Neck: Yes: Supple Cardiovascular: Yes: Regular Rate and Rhythm, S1, S2 Respiratory: Yes: Diminished, On BiPap, Poor Air Entry, Tachypnea Gastrointestinal: Yes: Normal Bowel Sounds, Soft. No: Tenderness Edema: No Labs: CBC, BMP 08/28/16 05:00 08/28/16 05:00 Assessment/Plan Patient with ESRD, has massive fluid overload, CHF. receiving HD. The current UF goal of 2.5 Kg well tolerated. Orders for HD reviewed with the RN.
--- NOTE | 2016-08-28 12:56 | PN ---
Teaching Attending Note Name of Resident: Ever Mccabe ATTENDING PHYSICIAN STATEMENT I saw and evaluated the patient. I reviewed the resident's note and discussed the case with the resident. I agree with the resident's findings and plan as documented. SUBJECTIVE: Patient seen and examined in the ICU. Lethargic on NIPPV, but protecting his airway. Currently on acute HD. BP is noted to be marginal. NIPPV adjusted to address acute hypercapnia. CXR: APE / large pleural effusions Intake & Output 08/25/16 08/26/16 08/27/16 08/28/16 23:59 23:59 23:59 23:59 Intake Total 100 Output Total 100 Balance -100 100 Weight 250 lb 137 lb 2 oz Last Vital Signs Temp Pulse Resp BP Pulse Ox 97.8 F 82 18 88/45 95 08/28/16 07:20 08/28/16 11:58 08/28/16 11:58 08/28/16 11:58 08/28/16 11:47 Active Medications Acetaminophen (Tylenol -) 325 mg PO QID [facility] Last Admin: 08/27/16 21:42 Dose: Not Given Aspirin (Asa -) 81 mg PO DAILY [facility] Last Admin: 08/27/16 10:05 Dose: Not Given Ergocalciferol (Drisdol -) 50,000 unit PO We@1000 [facility] Heparin Sodium (Porcine) (Heparin -) 5,000 unit SQ BID [facility] Last Admin: 08/27/16 21:43 Dose: 5,000 unit Lactulose (Cephulac (Oral Use)) 10 gm PO BID [facility] Last Admin: 08/27/16 21:41 Dose: Not Given Levothyroxine Sodium (Synthroid -) 112 mcg PO AM [facility] Last Admin: 08/28/16 06:52 Dose: Not Given Lidocaine (Lidoderm Patch -) 1 patch TP DAILY [facility] Last Admin: 08/27/16 19:49 Dose: Not Given Magnesium Chloride (Slow-Mag -) 64 mg PO DAILY [facility] Last Admin: 08/27/16 10:06 Dose: Not Given Midodrine (Proamatine -) 10 mg PO TID-MID [facility] Last Admin: 08/27/16 18:26 Dose: Not Given Multivitamins (Total B With C -) 1 each PO DAILY [facility] Last Admin: 08/27/16 10:06 Dose: Not Given Mupirocin (Bactroban 2% Ointment -) 1 applic TP BID [facility] Last Admin: 08/27/16 21:42 Dose: 1 applic Non-Formulary Medication (Vit B Cmplx 3/Fa/Vit C/Biotin [Hailey-Lexi Rx Tablet]) 1 tab PO DAILY [facility] Pantoprazole Sodium (Protonix -) 20 mg PO DAILY [facility] Last Admin: 08/27/16 10:05 Dose: Not Given Rifaximin (Xifaxan -) 550 mg PO DAILY [facility] Last Admin: 08/27/16 10:06 Dose: Not Given Sevelamer Carbonate (Renvela -) 800 mg PO TIDCM [facility] Last Admin: 08/27/16 17:55 Dose: Not Given Constitutional: Yes: Confused on NIPPV Eyes: Yes: Conjunctiva Clear, EOM Intact HENT: Yes: Atraumatic, Normocephalic Neck: Yes: Supple, Trachea Midline Cardiovascular: Yes: Regular Rate and Rhythm Respiratory: Yes: Rhonchi/Rales Gastrointestinal: Yes: Normal Bowel Sounds, Soft. No: Tenderness Extremities: Yes: Other (RUE AVG) Edema: No Neurological: Yes: Lethargy Labs: Laboratory Results - last 24 hr 08/27/16 08/28/16 08/28/16 10:33 00:08 05:00 WBC 6.3 RBC 2.81 L Hgb 9.5 L D Hct 30.1 L MCV 107.3 H MCHC 31.5 L RDW 20.4 H Plt Count 140 D MPV 8.9 Neutrophils % 90.6 H D Lymphocytes % 3.0 L D Monocytes % 5.5 Eosinophils % 0.0 D Basophils % 0.9 Anticoagulation Therapy Puncture Site ABG pH ABG pCO2 at Pt Temp ABG pO2 at Pt Temp ABG HCO3 ABG O2 Sat (Measured) ABG O2 Content ABG Base Excess Rodger Test O2 Delivery Device Oxygen Flow Rate Vent Mode Vent Rate Mechanical Rate PEEP Pressure Support Vent Sodium Potassium Chloride Carbon Dioxide Anion Gap BUN Creatinine Creat Clearance w eGFR POC Glucometer 174.53005 Random Glucose Calcium Phosphorus Magnesium Total Bilirubin AST ALT Alkaline Phosphatase Ammonia Creatine Kinase 48 Troponin I 0.22 H D Total Protein Albumin 08/28/16 08/28/16 08/28/16 05:00 05:00 05:55 WBC RBC Hgb Hct MCV MCHC RDW Plt Count MPV Neutrophils % Lymphocytes % Monocytes % Eosinophils % Basophils % Anticoagulation Therapy Puncture Site ABG pH ABG pCO2 at Pt Temp ABG pO2 at Pt Temp ABG HCO3 ABG O2 Sat (Measured) ABG O2 Content ABG Base Excess Rodger Test O2 Delivery Device Oxygen Flow Rate Vent Mode Vent Rate Mechanical Rate PEEP Pressure Support Vent Sodium 143 Potassium 3.7 D Chloride 103 Carbon Dioxide 30 D Anion Gap 10 BUN 23 H D Creatinine 3.8 H D Creat Clearance w eGFR 15.11 POC Glucometer Random Glucose 141 H Calcium 7.9 L Phosphorus 4.5 D Magnesium 2.2 Total Bilirubin 0.8 AST 22 D ALT 19 D Alkaline Phosphatase 135 H D Ammonia 57.34 H Creatine Kinase 121 Troponin I 0.20 H Total Protein 6.9 Albumin 3.8 08/28/16 08/28/16 07:05 08:25 WBC RBC Hgb Hct MCV MCHC RDW Plt Count MPV Neutrophils % Lymphocytes % Monocytes % Eosinophils % Basophils % Anticoagulation Therapy Y Puncture Site Left brachial ABG pH 7.21 L* ABG pCO2 at Pt Temp 73.8 H* ABG pO2 at Pt Temp 250.0 H* D ABG HCO3 28.6 H ABG O2 Sat (Measured) 100.0 H* ABG O2 Content 13.3 L ABG Base Excess 0.1 Rodger Test Positive O2 Delivery Device Bipap Oxygen Flow Rate 100% Vent Mode S/t Vent Rate 14 Mechanical Rate Bipap PEEP 0.0 Pressure Support Vent 16/6 Sodium Potassium Chloride Carbon Dioxide Anion Gap BUN Creatinine Creat Clearance w eGFR POC Glucometer 133.24654 Random Glucose Calcium Phosphorus Magnesium Total Bilirubin AST ALT Alkaline Phosphatase Ammonia Creatine Kinase Troponin I Total Protein Albumin Problem List - Problems (1) Acute hypercapnic respiratory failure Code(s): J96.02 - ACUTE RESPIRATORY FAILURE WITH HYPERCAPNIA (2) Altered mental status Code(s): R41.82 - ALTERED MENTAL STATUS, UNSPECIFIED (3) End stage renal disease on dialysis Code(s): N18.6 - END STAGE RENAL DISEASE Z99.2 - DEPENDENCE ON RENAL DIALYSIS (4) Pleural effusion Code(s): J90 - PLEURAL EFFUSION, NOT ELSEWHERE CLASSIFIED (5) Acute on chronic diastolic (congestive) heart failure Code(s): I50.33 - ACUTE ON CHRONIC DIASTOLIC (CONGESTIVE) HEART FAILURE (6) Liver cirrhosis Code(s): K74.60 - UNSPECIFIED CIRRHOSIS OF LIVER (7) Hepatic encephalopathy Code(s): K72.90 - HEPATIC FAILURE, UNSPECIFIED WITHOUT COMA (8) Atrial fibrillation Code(s): I48.91 - UNSPECIFIED ATRIAL FIBRILLATION Assessment/Plan Altered Mental Status Acute Hypercapneic Respiratory Failure ESRD on HD Acute on Chronic LV Diastolic Heart Failure Atrial Fibrillation RV Dysfunction Pleural Effusions Liver Cirrhosis r/o Hepatic Encephalopathy - NIPPV adjusted - Continued HD for volume removal - f/u ammonia level - echocardiogram - aspiration precautions - titrate FiO2 to keep SpO2 >90% - may need NGT for meds - DVT/GI prophylaxis - prognosis overall appears poor Dr May CCTime 35"
--- NOTE | 2016-08-28 14:38 | PN ---
Progress Note, Physician History of Present Illness: patient seen and examined at bedside in ICU getting dialyzed 2KG removed yesterday and 2KG to be removed today - Current Medication List Current Medications: Active Medications Acetaminophen (Tylenol -) 325 mg PO QID [facility] Last Admin: 08/27/16 21:42 Dose: Not Given Aspirin (Asa -) 81 mg PO DAILY [facility] Last Admin: 08/27/16 10:05 Dose: Not Given Ergocalciferol (Drisdol -) 50,000 unit PO We@1000 [facility] Heparin Sodium (Porcine) (Heparin -) 5,000 unit SQ BID [facility] Last Admin: 08/27/16 21:43 Dose: 5,000 unit Pantoprazole Sodium (Protonix 40mg Ivpb (Pre-Docked)) 100 mls @ 200 mls/hr IVPB DAILY [facility] Lactulose (Cephulac (Oral Use)) 10 gm PO BID [facility] Last Admin: 08/27/16 21:41 Dose: Not Given Levothyroxine Sodium (Synthroid Injection -) 55 mcg IM DAILY [facility] Lidocaine (Lidoderm Patch -) 1 patch TP DAILY [facility] Last Admin: 08/27/16 19:49 Dose: Not Given Magnesium Chloride (Slow-Mag -) 64 mg PO DAILY [facility] Last Admin: 08/27/16 10:06 Dose: Not Given Midodrine (Proamatine -) 10 mg PO TID-MID [facility] Last Admin: 08/27/16 18:26 Dose: Not Given Multivitamins (Total B With C -) 1 each PO DAILY [facility] Last Admin: 08/27/16 10:06 Dose: Not Given Mupirocin (Bactroban 2% Ointment -) 1 applic TP BID [facility] Last Admin: 08/27/16 21:42 Dose: 1 applic Non-Formulary Medication (Vit B Cmplx 3/Fa/Vit C/Biotin [Hailey-Lexi Rx Tablet]) 1 tab PO DAILY [facility] Rifaximin (Xifaxan -) 550 mg PO DAILY [facility] Last Admin: 08/27/16 10:06 Dose: Not Given Sevelamer Carbonate (Renvela -) 800 mg PO TIDCM [facility] Last Admin: 08/27/16 17:55 Dose: Not Given - Objective Vital Signs: Vital Signs Temperature 97.8 F 08/28/16 07:20 Pulse Rate 83 08/28/16 12:00 Respiratory Rate 18 08/28/16 12:00 Blood Pressure 85/58 08/28/16 12:00 O2 Sat by Pulse Oximetry (%) 95 08/28/16 14:01 Constitutional: Yes: No Distress Eyes: Yes: EOM Intact HENT: Yes: Atraumatic Neck: Yes: Trachea Midline Cardiovascular: Yes: Pulse Irregular Respiratory: Yes: Diminished, On BiPap, Poor Air Entry Gastrointestinal: Yes: Soft Labs: CBC, BMP 08/28/16 05:00 08/28/16 05:00 - ....Imaging Chest X-ray: Report Reviewed, Image Reviewed Assessment/Plan 86M with history of CAD s/p CABG ESRD on HD RV dysfunction HTN HLD hypothyroid presents to the ICU with AMS and lethargy Acute Hypercapneic Respiratory Failure on BiPAP Back up resp rate adjusted and increase to 22 ABG shows resp acidosis -will trend DNI also has pleural effusions on CXR which seem worse-will dialyze for fluid overload will get Echo Decrease FiO2 Altered Mental Status- a combination of hypercapnea and high ammonia level hepatic encephalopathy continue lactulose trend ammonia level trend PCO2 ESRD on HD: dialyzed again today to remove 2Kg trend weights CV/Afib: continue aspirin Rate control continue midodrine hypothyroidism synthroid IV FEN: no IVF No electrolyte issues npo will need diet plan as patient unable to come off of bipap PPx: HSQ Protonix PT consult
--- NOTE | 2016-08-28 16:17 | EKG ---
Test Reason : Blood Pressure : / mmHG Vent. Rate : 105 BPM Atrial Rate : 115 BPM P-R Int : 000 ms QRS Dur : 160 ms QT Int : 398 ms P-R-T Axes : 000 154 -11 degrees QTc Int : 526 ms ATRIAL FIBRILLATION WITH RAPID VENTRICULAR RESPONSE RIGHT BUNDLE BRANCH BLOCK LEFT POSTERIOR FASCICULAR BLOCK BIFASCICULAR BLOCK CANNOT RULE OUT INFERIOR INFARCT (CITED ON OR BEFORE 26-APR-2016) ANTEROSEPTAL INFARCT (CITED ON OR BEFORE 26-APR-2016) ABNORMAL ECG WHEN COMPARED WITH ECG OF 26-AUG-2016 23:32, T WAVE VARIATION Confirmed by KEO GARZA MD ([id number]) on 08/28/2016 4:16:57 PM Referred By: Confirmed By:KEO GARZA MD
--- NOTE | 2016-08-28 16:18 | EKG ---
Test Reason : Blood Pressure : / mmHG Vent. Rate : 087 BPM Atrial Rate : 068 BPM P-R Int : 000 ms QRS Dur : 156 ms QT Int : 462 ms P-R-T Axes : 000 173 -05 degrees QTc Int : 555 ms ATRIAL FIBRILLATION RIGHT BUNDLE BRANCH BLOCK LEFT POSTERIOR FASCICULAR BLOCK BIFASCICULAR BLOCK POSSIBLE INFERIOR INFARCT (CITED ON OR BEFORE 26-APR-2016) ANTEROSEPTAL INFARCT (CITED ON OR BEFORE 26-APR-2016) ABNORMAL ECG WHEN COMPARED WITH ECG OF 05-JUL-2016 16:02, NO SIGNIFICANT CHANGE WAS FOUND Confirmed by KEO GARZA MD ([id number]) on 08/28/2016 4:17:58 PM Referred By: Confirmed By:KEO GARZA MD
[2016-08-28] MEDS: ACETAMINOPHEN 325 MG TABLET (FP) PO SCH (21:48)
[2016-08-28] MEDS: LACTULOSE 20 GM/30 ML UDC (FOR ORAL USE ONLY) PO SCH (21:49)
[2016-08-28] MEDS: MUPIROCIN 2% TOPICAL OINTMENT 22 GM TUBE TP SCH (21:50)
[2016-08-28] MEDS: HEPARIN NA (PORCINE) 5,000 UNITS/ML 1ML VIAL SQ SCH (21:53)
[2016-08-29] MEDS ORDERED: morphine CARPU-JECT 2 MG/1 ML DISP.SYRIN ONE (00:12)
[2016-08-29] MEDS ORDERED: morphine CARPU-JECT 2 MG/1 ML DISP.SYRIN IVPUSH ONE ×2 (01:09→04:05)
[2016-08-29 06:13] LABS: MCH 33.4 pg (25.7-33.7); MCHC 31.2 g/dl (32.0-35.9); MEAN CELL VOLUME 107.1 fl (80-96); MEAN PLT VOLUME 9.2 fl (7.5-11.1); PLATELET COUNT 119 K/MM3 (134-434); RDW 20.5 % (11.9-15.9); WHITE BLOOD COUNT 5.7 K/mm3 (4.0-10.0)
[2016-08-29 06:38] LABS: CALCIUM 8.6 mg/dL (8.5-10.1); CREATININE 2.8 mg/dL (0.7-1.3); PHOSPHOROUS 2.1 mg/dL (2.5-4.9)
[2016-08-29 07:36] LABS: ARTERIAL BLD GAS O2 SATURATION 93.4 % (90-98.9); ARTERIAL BLOOD GAS BASE EXCESS 2.2 meq/l (-2-2); ARTERIAL BLOOD GAS HCO3 28.6 meq/L (22-26); ARTERIAL BLOOD GAS PO2 68.6 mmHg (68-100)
[2016-08-29 07:40] LABS: ALLENS TEST POSITIVE; ART PUNCT SITE LEFT RADIAL; LPM/O2% 40%; PT. ON O2? YES; TYPE OF O2 VENTIMASK
[2016-08-29 07:41] LABS: ARTERIAL BLOOD GAS pH 7.31 (7.35-7.45)
[2016-08-29] MEDS ORDERED: PT OWN MED DRAWER 7, Y5N ONE ×2 (09:11→18:36)
--- NOTE | 2016-08-29 09:28 | PN ---
Progress Note, Physician Chief Complaint: Patient in ICU. More alert. On Ventimask BP stable. - Current Medication List Current Medications: Active Medications Acetaminophen (Tylenol -) 325 mg PO QID [facility] Last Admin: 08/28/16 21:48 Dose: Not Given Aspirin (Asa -) 81 mg PO DAILY [facility] Last Admin: 08/27/16 10:05 Dose: Not Given Ergocalciferol (Drisdol -) 50,000 unit PO We@1000 [facility] Heparin Sodium (Porcine) (Heparin -) 5,000 unit SQ BID [facility] Last Admin: 08/28/16 21:53 Dose: 5,000 unit Pantoprazole Sodium (Protonix 40mg Ivpb (Pre-Docked)) 100 mls @ 200 mls/hr IVPB DAILY [facility] Lactulose (Cephulac (Oral Use)) 10 gm PO BID [facility] Last Admin: 08/28/16 21:49 Dose: Not Given Levothyroxine Sodium (Synthroid Injection -) 55 mcg IM DAILY [facility] Lidocaine (Lidoderm Patch -) 1 patch TP DAILY [facility] Last Admin: 08/27/16 19:49 Dose: Not Given Magnesium Chloride (Slow-Mag -) 64 mg PO DAILY [facility] Last Admin: 08/27/16 10:06 Dose: Not Given Midodrine (Proamatine -) 10 mg PO TID-MID [facility] Last Admin: 08/27/16 18:26 Dose: Not Given Multivit/Ca Carb/B Cmplx/FA/Prenat (Nephro-Lexi -) 1 tablet PO DAILY [facility] Mupirocin (Bactroban 2% Ointment -) 1 applic TP BID [facility] Last Admin: 08/28/16 21:50 Dose: 1 applic Rifaximin (Xifaxan -) 550 mg PO DAILY [facility] Last Admin: 08/27/16 10:06 Dose: Not Given Sevelamer Carbonate (Renvela -) 800 mg PO TIDCM [facility] Last Admin: 08/27/16 17:55 Dose: Not Given - Objective Vital Signs: Vital Signs Temperature 97.2 F L 08/29/16 02:00 Pulse Rate 80 08/29/16 08:00 Respiratory Rate 18 08/29/16 08:44 Blood Pressure 86/50 08/29/16 08:00 O2 Sat by Pulse Oximetry (%) 93 L 08/29/16 08:44 Constitutional: Yes: Calm, Anxious Eyes: Yes: WNL HENT: Yes: Atraumatic Neck: Yes: Supple Cardiovascular: Yes: Regular Rate and Rhythm, S1, S2 Respiratory: Yes: Diminished, Poor Air Entry, Rhonchi Gastrointestinal: Yes: Normal Bowel Sounds Neurological: Yes: Weakness. No: Oriented Psychiatric: No: Oriented Labs: CBC, BMP 08/29/16 05:05 08/29/16 05:05 Assessment/Plan Patient with ESRD, Stable Hemodynamically. Had uneventful HD yesterday. Next HD scheduled for AM. Mental status improving, but not at his baseline. Current management reviewed. Anitha Zimmer MD
[2016-08-29] MEDS ORDERED: VITAMIN B COMP W-C 1 EA TABLET PO SCH (10:00)
[2016-08-29] MEDS: SEVELAMER CARBONATE 800 MG TAB (FP) PO SCH ×4 (10:54→18:13)
[2016-08-29] MEDS: ASPIRIN 81 MG CHEWABLE TABLETS PO SCH ×2 (10:54→10:59)
[2016-08-29] MEDS: LIDOCAINE 5% TOPICAL PATCH TP SCH ×2 (10:55→11:00)
[2016-08-29] MEDS: MIDODRINE HCL 5 MG TABLET PO SCH ×5 (10:55→18:13)
[2016-08-29] MEDS: HEPARIN NA (PORCINE) 5,000 UNITS/ML 1ML VIAL SQ SCH ×3 (10:55→22:29)
[2016-08-29] MEDS: LACTULOSE 20 GM/30 ML UDC (FOR ORAL USE ONLY) PO SCH ×3 (10:55→22:28)
[2016-08-29] MEDS: MAGNESIUM CL 64 MG TABLET.SA PO SCH ×2 (10:56→11:00)
[2016-08-29] MEDS: ACETAMINOPHEN 325 MG TABLET (FP) PO SCH ×8 (10:56→23:02)
[2016-08-29] MEDS: LEVOTHYROXINE SODIUM 100 MCG VIAL IM SCH ×2 (10:57→11:00)
[2016-08-29] MEDS: RIFAXIMIN 550 MG TABLET (UD) PO SCH ×2 (10:57→11:00)
[2016-08-29] MEDS: PANTOPRAZOLE SODIUM 100 ML IVPB SCH ×2 (10:57→11:00)
[2016-08-29] MEDS: PANTOPRAZOLE 20 MG TABLET (FP) PO SCH (10:58)
[2016-08-29] MEDS: VITAMIN B COMPLEX W/C COMBO TABLET (FP) PO SCH (10:58)
[2016-08-29] MEDS: MUPIROCIN 2% TOPICAL OINTMENT 22 GM TUBE TP SCH ×2 (11:04→22:28)
--- NOTE | 2016-08-29 13:16 | PN ---
Teaching Attending Note Name of Resident: Ever Mccabe ATTENDING PHYSICIAN STATEMENT I saw and evaluated the patient. I reviewed the resident's note and discussed the case with the resident. I agree with the resident's findings and plan as documented. SUBJECTIVE: Patient seen and examined in the ICU. More awake on VM O2. Remains confused, but slightly more oriented today. CXR: No gross change Intake & Output 08/26/16 08/27/16 08/28/16 08/29/16 23:59 23:59 23:59 23:59 Intake Total 100 75 Output Total 100 0 Balance -100 100 75 Weight 250 lb 137 lb 2 oz 133 lb 9.602 oz Last Vital Signs Temp Pulse Resp BP Pulse Ox 98.1 F 89 16 86/50 98 08/29/16 10:00 08/29/16 10:00 08/29/16 10:00 08/29/16 10:00 08/29/16 10:13 Active Medications Acetaminophen (Tylenol -) 325 mg PO QID [facility] Last Admin: 08/29/16 11:00 Dose: 325 mg Aspirin (Asa -) 81 mg PO DAILY [facility] Last Admin: 08/29/16 10:59 Dose: 81 mg Ergocalciferol (Drisdol -) 50,000 unit PO We@1000 [facility] Heparin Sodium (Porcine) (Heparin -) 5,000 unit SQ BID [facility] Last Admin: 08/29/16 11:00 Dose: 5,000 unit Pantoprazole Sodium (Protonix 40mg Ivpb (Pre-Docked)) 100 mls @ 200 mls/hr IVPB DAILY [facility] Last Admin: 08/29/16 11:00 Dose: 200 mls/hr Lactulose (Cephulac (Oral Use)) 10 gm PO BID [facility] Last Admin: 08/29/16 10:59 Dose: 10 gm Levothyroxine Sodium (Synthroid Injection -) 55 mcg IM DAILY [facility] Last Admin: 08/29/16 11:00 Dose: 55 mcg Lidocaine (Lidoderm Patch -) 1 patch TP DAILY [facility] Last Admin: 08/29/16 11:00 Dose: 1 patch Magnesium Chloride (Slow-Mag -) 64 mg PO DAILY [facility] Last Admin: 08/29/16 11:00 Dose: 64 mg Midodrine (Proamatine -) 10 mg PO TID-MID [facility] Last Admin: 08/29/16 11:00 Dose: 10 mg Multivit/Ca Carb/B Cmplx/FA/Prenat (Nephro-Lexi -) 1 tablet PO DAILY [facility] Last Admin: 08/29/16 11:01 Dose: 1 tablet Mupirocin (Bactroban 2% Ointment -) 1 applic TP BID [facility] Last Admin: 08/29/16 11:04 Dose: 1 applic Rifaximin (Xifaxan -) 550 mg PO DAILY [facility] Last Admin: 08/29/16 11:00 Dose: 550 mg Sevelamer Carbonate (Renvela -) 800 mg PO TIDCM [facility] Last Admin: 08/29/16 10:59 Dose: 800 mg Constitutional: Yes: NAD on VM O2, confused Eyes: Yes: Conjunctiva Clear, EOM Intact HENT: Yes: Atraumatic, Normocephalic Neck: Yes: Supple, Trachea Midline Cardiovascular: Yes: Regular Rate and Rhythm Respiratory: Yes: Rhonchi/Rales Gastrointestinal: Yes: Normal Bowel Sounds, Soft. No: Tenderness Extremities: Yes: Other (RUE AVG) Edema: No Neurological: Yes: Lethargy Labs: Laboratory Results - last 24 hr 08/27/16 08/29/16 08/29/16 14:15 05:05 05:05 WBC 5.7 RBC 2.86 L Hgb 9.6 L Hct 30.6 L MCV 107.1 H MCHC 31.2 L RDW 20.5 H Plt Count 119 L MPV 9.2 Puncture Site ABG pH ABG pCO2 at Pt Temp ABG pO2 at Pt Temp ABG HCO3 ABG O2 Sat (Measured) ABG O2 Content ABG Base Excess Rodger Test O2 Delivery Device Oxygen Flow Rate PEEP Sodium 143 Potassium 3.4 L Chloride 103 Carbon Dioxide 30 Anion Gap 10 BUN 19 H Creatinine 2.8 H D Random Glucose 92 D Calcium 8.6 Phosphorus 2.1 L D Ammonia Hepatitis C Antibody 0.1 08/29/16 08/29/16 05:05 07:25 WBC RBC Hgb Hct MCV MCHC RDW Plt Count MPV Puncture Site Left radial ABG pH 7.31 L ABG pCO2 at Pt Temp 58.4 H D ABG pO2 at Pt Temp 68.6 D ABG HCO3 28.6 H ABG O2 Sat (Measured) 93.4 ABG O2 Content 12.2 L ABG Base Excess 2.2 H Rodger Test Positive O2 Delivery Device Ventimask Oxygen Flow Rate 40% PEEP 0.0 Sodium Potassium Chloride Carbon Dioxide Anion Gap BUN Creatinine Random Glucose Calcium Phosphorus Ammonia 42.73 H Hepatitis C Antibody Problem List - Problems (1) Acute hypercapnic respiratory failure Code(s): J96.02 - ACUTE RESPIRATORY FAILURE WITH HYPERCAPNIA (2) Altered mental status Code(s): R41.82 - ALTERED MENTAL STATUS, UNSPECIFIED (3) End stage renal disease on dialysis Code(s): N18.6 - END STAGE RENAL DISEASE Z99.2 - DEPENDENCE ON RENAL DIALYSIS (4) Pleural effusion Code(s): J90 - PLEURAL EFFUSION, NOT ELSEWHERE CLASSIFIED (5) Acute on chronic diastolic (congestive) heart failure Code(s): I50.33 - ACUTE ON CHRONIC DIASTOLIC (CONGESTIVE) HEART FAILURE (6) Liver cirrhosis Code(s): K74.60 - UNSPECIFIED CIRRHOSIS OF LIVER (7) Hepatic encephalopathy Code(s): K72.90 - HEPATIC FAILURE, UNSPECIFIED WITHOUT COMA (8) Atrial fibrillation Code(s): I48.91 - UNSPECIFIED ATRIAL FIBRILLATION Assessment/Plan Altered Mental Status Acute Hypercapneic Respiratory Failure ESRD on HD Acute on Chronic LV Diastolic Heart Failure Atrial Fibrillation RV Dysfunction Pleural Effusions Liver Cirrhosis r/o Hepatic Encephalopathy - VM O2 tolerated - NIPPV as needed - HD for volume removal - aspiration precautions - titrate FiO2 to keep SpO2 >90% - PO if his mental status allows - DVT/GI prophylaxis Dr May CCTime 35"
--- NOTE | 2016-08-29 14:21 | PN ---
Progress Note, Physician History of Present Illness: patient seen and examined at bedside in ICU mental status improved but is not at baseline per niece - Current Medication List Current Medications: Active Medications Acetaminophen (Tylenol -) 325 mg PO QID [facility] Last Admin: 08/29/16 11:00 Dose: 325 mg Aspirin (Asa -) 81 mg PO DAILY [facility] Last Admin: 08/29/16 10:59 Dose: 81 mg Ergocalciferol (Drisdol -) 50,000 unit PO We@1000 [facility] Heparin Sodium (Porcine) (Heparin -) 5,000 unit SQ BID [facility] Last Admin: 08/29/16 11:00 Dose: 5,000 unit Pantoprazole Sodium (Protonix 40mg Ivpb (Pre-Docked)) 100 mls @ 200 mls/hr IVPB DAILY [facility] Last Admin: 08/29/16 11:00 Dose: 200 mls/hr Lactulose (Cephulac (Oral Use)) 10 gm PO BID [facility] Last Admin: 08/29/16 10:59 Dose: 10 gm Levothyroxine Sodium (Synthroid Injection -) 55 mcg IM DAILY [facility] Last Admin: 08/29/16 11:00 Dose: 55 mcg Lidocaine (Lidoderm Patch -) 1 patch TP DAILY [facility] Last Admin: 08/29/16 11:00 Dose: 1 patch Magnesium Chloride (Slow-Mag -) 64 mg PO DAILY [facility] Last Admin: 08/29/16 11:00 Dose: 64 mg Midodrine (Proamatine -) 10 mg PO TID-MID [facility] Last Admin: 08/29/16 11:00 Dose: 10 mg Multivit/Ca Carb/B Cmplx/FA/Prenat (Nephro-Lexi -) 1 tablet PO DAILY [facility] Last Admin: 08/29/16 11:01 Dose: 1 tablet Mupirocin (Bactroban 2% Ointment -) 1 applic TP BID [facility] Last Admin: 08/29/16 11:04 Dose: 1 applic Rifaximin (Xifaxan -) 550 mg PO DAILY [facility] Last Admin: 08/29/16 11:00 Dose: 550 mg Sevelamer Carbonate (Renvela -) 800 mg PO TIDCM [facility] Last Admin: 08/29/16 10:59 Dose: 800 mg - Objective Vital Signs: Vital Signs Temperature 98.1 F 08/29/16 10:00 Pulse Rate 89 08/29/16 10:00 Respiratory Rate 16 08/29/16 10:00 Blood Pressure 86/50 08/29/16 10:00 O2 Sat by Pulse Oximetry (%) 98 08/29/16 10:13 Constitutional: Yes: No Distress Eyes: Yes: EOM Intact HENT: Yes: Atraumatic Neck: Yes: Trachea Midline Cardiovascular: Yes: Pulse Irregular Respiratory: Yes: Diminished poor air entry decreased effort decreased breath sounds at bases Gastrointestinal: Yes: Soft Labs: CBC, BMP 08/29/16 05:05 08/29/16 05:05 Assessment/Plan 86M with history of CAD s/p CABG ESRD on HD RV dysfunction HTN HLD hypothyroid presents to the ICU with AMS and lethargy Acute Hypercapneic Respiratory Failure off bipap on 40% facemask will humidify the oxygen DNI Echo reviewed unchanged from previous Altered Mental Status- a combination of hypercapnea and high ammonia level ammonia level improved mental status much improved possible hepatic encephalopathy continue lactulose trend ammonia level ESRD on HD: dialysis tomorrow trend weights CV/Afib: continue aspirin Rate control continue midodrine hypothyroidism synthroid IV FEN: no IVF No electrolyte issues on diet PPx: HSQ Protonix PT consult transfer to telemetry
--- NOTE | 2016-08-29 22:59 | PN ---
Progress Note (short form) - Note Progress Note: patient now transfered to medical ruff on O2 mask with sats 97% more awake / not interactive but responding to verbal stimuli Vital Signs Period Temp Pulse Resp BP Sys/Peck Pulse Ox Last 24 Hr 97.2 F-98.1 F 80-91 16-20 70-90/44-55 93-99 Intake & Output 08/26/16 08/27/16 08/28/16 08/29/16 23:59 23:59 23:59 23:59 Intake Total 100 175 Output Total 100 0 Balance -100 100 175 Weight 250 lb 137 lb 2 oz 133 lb 9.602 oz neck supple heart irreg S1/S2 lungs improved BS bilat abd soft non tender ext no edema CBC, BMP 08/29/16 05:05 08/29/16 05:05 Active Medications Acetaminophen (Tylenol -) 325 mg PO QID [facility] Last Admin: 08/29/16 22:29 Dose: 325 mg Aspirin (Asa -) 81 mg PO DAILY [facility] Ergocalciferol (Drisdol -) 50,000 unit PO We@1000 [facility] Heparin Sodium (Porcine) (Heparin -) 5,000 unit SQ BID [facility] Last Admin: 08/29/16 22:29 Dose: 5,000 unit Pantoprazole Sodium (Protonix 40mg Ivpb (Pre-Docked)) 100 mls @ 200 mls/hr IVPB DAILY [facility] Lactulose (Cephulac (Oral Use)) 10 gm PO BID [facility] Last Admin: 08/29/16 22:28 Dose: 10 gm Levothyroxine Sodium (Synthroid Injection -) 55 mcg IM DAILY [facility] Lidocaine (Lidoderm Patch -) 1 patch TP DAILY [facility] Magnesium Chloride (Slow-Mag -) 64 mg PO DAILY [facility] Midodrine (Proamatine -) 10 mg PO TID-MID [facility] Multivit/Ca Carb/B Cmplx/FA/Prenat (Nephro-Lexi -) 1 tablet PO DAILY [facility] Mupirocin (Bactroban 2% Ointment -) 1 applic TP BID [facility] Last Admin: 08/29/16 22:28 Dose: Not Given Rifaximin (Xifaxan -) 550 mg PO DAILY [facility] Sevelamer Carbonate (Renvela -) 800 mg PO TIDCM [facility] Problem List - Problems (1) Hypoxia Code(s): R09.02 - HYPOXEMIA (2) Fluid excess Code(s): E87.70 - FLUID OVERLOAD, UNSPECIFIED (3) Altered mental status Code(s): R41.82 - ALTERED MENTAL STATUS, UNSPECIFIED (4) Acute on chronic diastolic (congestive) heart failure Code(s): I50.33 - ACUTE ON CHRONIC DIASTOLIC (CONGESTIVE) HEART FAILURE (5) Liver cirrhosis Code(s): K74.60 - UNSPECIFIED CIRRHOSIS OF LIVER (6) Pleural effusion Code(s): J90 - PLEURAL EFFUSION, NOT ELSEWHERE CLASSIFIED (7) Altered awareness, transient Code(s): R40.4 - TRANSIENT ALTERATION OF AWARENESS (8) Atrial fibrillation Code(s): I48.91 - UNSPECIFIED ATRIAL FIBRILLATION (9) CHF (congestive heart failure) Code(s): I50.9 - HEART FAILURE, UNSPECIFIED Qualifiers: Qualified Code(s): I50.9 - Heart failure, unspecified (10) End stage renal disease on dialysis Code(s): N18.6 - END STAGE RENAL DISEASE Z99.2 - DEPENDENCE ON RENAL DIALYSIS (11) Hepatic encephalopathy Code(s): K72.90 - HEPATIC FAILURE, UNSPECIFIED WITHOUT COMA (12) Hypothyroidism Code(s): E03.9 - HYPOTHYROIDISM, UNSPECIFIED (13) Lethargy Code(s): R53.83 - OTHER FATIGUE
[2016-08-30 00:07] LABS: HEP B SURFACE AB Non Reactive (.)
[2016-08-30 08:16] LABS: MCH 33.6 pg (25.7-33.7); MCHC 31.3 g/dl (32.0-35.9); MEAN CELL VOLUME 107.3 fl (80-96); MEAN PLT VOLUME 9.2 fl (7.5-11.1); PLATELET COUNT 99 K/MM3 (134-434); RDW 20.1 % (11.9-15.9); WHITE BLOOD COUNT 6.6 K/mm3 (4.0-10.0)
[2016-08-30 08:26] LABS: ARTERIAL BLOOD GAS pH 7.31 (7.35-7.45)
[2016-08-30 08:28] LABS: ALLENS TEST POSITIVE; ARTERIAL BLD GAS O2 SATURATION 97.1 % (90-98.9); ARTERIAL BLOOD GAS BASE EXCESS 2.9 meq/l (-2-2); ARTERIAL BLOOD GAS HCO3 29.6 meq/L (22-26); ARTERIAL BLOOD GAS PO2 86.7 mmHg (68-100)
[2016-08-30 08:29] LABS: ART PUNCT SITE LEFT RADIAL; LPM/O2% 40%; PT. ON O2? YES; TYPE OF O2 VENTIMASK
[2016-08-30] MEDS: SEVELAMER CARBONATE 800 MG TAB (FP) PO SCH ×3 (08:56→17:33)
[2016-08-30 09:21] LABS: CALCIUM 8.3 mg/dL (8.5-10.1); CREATININE 4.5 mg/dL (0.7-1.3)
[2016-08-30] MEDS: LACTULOSE 20 GM/30 ML UDC (FOR ORAL USE ONLY) PO SCH ×2 (09:57→21:41)
[2016-08-30] MEDS: MIDODRINE HCL 5 MG TABLET PO SCH ×3 (09:58→17:33)
[2016-08-30] MEDS: RIFAXIMIN 550 MG TABLET (UD) PO SCH (09:59)
[2016-08-30] MEDS ORDERED: ASPIRIN 81 MG CHEWABLE TABLETS PO SCH (10:00)
[2016-08-30] MEDS ORDERED: ERGOCALCIFEROL (VITAMIN D2) 50,000 UNIT CAPSULE (FP) PO SCH ×2 (10:00)
[2016-08-30] MEDS ORDERED: LIDOCAINE 5% TOPICAL PATCH TP SCH (10:00)
[2016-08-30] MEDS ORDERED: MAGNESIUM CL 64 MG TABLET.SA PO SCH (10:00)
[2016-08-30] MEDS ORDERED: LEVOTHYROXINE SODIUM 100 MCG VIAL IM SCH (10:00)
[2016-08-30] MEDS: ACETAMINOPHEN 325 MG TABLET (FP) PO SCH ×4 (10:41→21:41)
--- NOTE | 2016-08-30 11:39 | PN ---
Progress Note (short form) - Note Progress Note: Renal Follow up for ESRD on HD Pt seen and examined during dialysis BP low 75/40's, holding UF at this time Access with good function pt is awake but not answering questions on BIPAP did not get midodrine this am because he was lethargic Vital Signs Temperature 98 F 08/30/16 05:10 Pulse Rate 91 H 08/30/16 10:20 Respiratory Rate 18 08/30/16 10:20 Blood Pressure 89/50 08/30/16 10:20 O2 Sat by Pulse Oximetry (%) 97 08/30/16 08:44 Intake & Output 08/27/16 08/28/16 08/29/16 08/30/16 23:59 23:59 23:59 23:59 Intake Total 100 180 5 Output Total 100 0 Balance -100 100 180 5 Weight 137 lb 2 oz 133 lb 9.602 oz Gen: NAD on BIPAP CVS: RRR, No M/R Lungs: Dec BS throughout the lung mandujano Abd: soft NT/ND Ext: No edema, clubbing or cyanosis CBC, BMP 08/30/16 05:38 08/30/16 05:38 Current Medications Acetaminophen (Tylenol -) 325 mg PO QID [facility] Last Admin: 08/29/16 23:02 Dose: Not Given Aspirin (Asa -) 81 mg PO DAILY [facility] Ergocalciferol (Drisdol -) 50,000 unit PO We@1000 [facility] Heparin Sodium (Porcine) (Heparin -) 5,000 unit SQ BID [facility] Last Admin: 08/29/16 22:29 Dose: 5,000 unit Pantoprazole Sodium (Protonix 40mg Ivpb (Pre-Docked)) 100 mls @ 200 mls/hr IVPB DAILY [facility] Lactulose (Cephulac (Oral Use)) 10 gm PO BID [facility] Last Admin: 08/29/16 22:28 Dose: 10 gm Levothyroxine Sodium (Synthroid Injection -) 55 mcg IM DAILY [facility] Lidocaine (Lidoderm Patch -) 1 patch TP DAILY [facility] Magnesium Chloride (Slow-Mag -) 64 mg PO DAILY [facility] Midodrine (Proamatine -) 10 mg PO TID-MID [facility] Multivit/Ca Carb/B Cmplx/FA/Prenat (Nephro-Lexi -) 1 tablet PO DAILY [facility] Mupirocin (Bactroban 2% Ointment -) 1 applic TP BID [facility] Last Admin: 08/29/16 22:28 Dose: Not Given Rifaximin (Xifaxan -) 550 mg PO DAILY [facility] Sevelamer Carbonate (Renvela -) 800 mg PO TIDCM [facility] A/P This is a 86 year old Gentleman with PMhx of ESRD on HD (MWF), Chronic Cholecystitis, Dementia, DM, Hypertension, Afib with SOB and found to have extrensive pulmonary vascular congestion and hypoxia #SOB/Hypoxia/Fluid over laod/CHF/AMS CXR shows persistent effusions ABG shows hypercarbia but improved form baseline continue BIPAP as per pulmonary #ESRD HD today with goal UF of 2.5 -> will adjust UF based on BP during the treatment plan for isolated UF tomorrow #[facility]
[2016-08-30] MEDS: MUPIROCIN 2% TOPICAL OINTMENT 22 GM TUBE TP SCH ×2 (11:57→21:41)
[2016-08-30] MEDS: VITAMIN B COMP W-C 1 EA TABLET PO SCH (11:58)
--- NOTE | 2016-08-30 12:00 | CONSULT ---
Admitting History and Physical - Primary Care Physician PCP: Hemalatha Torres I - Admission History of Present Illness: Per EMR:"This is a 86 year old Gentleman with PMhx of ESRD on HD (MWF), Chronic Cholecystitis, Dementia, DM, Hypertension, Afib with SOB and found to have extrensive pulmonary vascular congestion and hypoxia"Bip Per RD 08/29/16 :"Family requesting chopped foods. Pt lethargic and on venti- mask. Pt needs chopped foods at this time. -Pt is congested. NKFA noted. Pt was on Regular foods in NH and was taking Nepro. -Pt needs assistance with meals due to AMS and lethargy. Difficulty chewing, related to AMS/lethargy, as evidenced by RN and interview with pt's family. Altered nutrition related laboratory values, evidenced by hypokalemia and hypophosphatemia. Predicated suboptimal oral intake, related to AMS and difficulty chewing. -Chopped diet with Nepro. -Monitor PO intake and tolerance to diet. -Monitor weight, labs, and skin." BIPAP on. Nursing reported a responsive cough when given Lactulose last night. 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: Dementia Cardiovascular: Yes: CAD, CHF, HTN, Hyperlipdemia Gastrointestinal: Yes: Other (COLON POLYPS) Hepatobiliary: Yes: Cholelithiasis, Cholecystitis Renal/: Yes: Renal Failure, Renal Inusuff, Hemodialysis Heme/Onc: Yes: Anemia - Past Surgical History Past Surgical History: Yes: AV Fistula/Graft, CABG - Advance Directives Advance Directives: Yes: Health Care Proxy, DNR - Smoking History Smoking history: Former smoker Have you smoked in the past 12 months: No Aproximately how many cigarettes per day: 0 - Alcohol/Substance Use Hx Alcohol Use: No - Social History ADL: Support Services History of Recent Travel: No History - Admission Reason For Visit: COPD - Diagnostics X-ray: Report Reviewed - General Attention: Distractible (Awake. Limited eye contact.Grimacing at times.) Ability to Follow Directions: Poor Speech Evaluation - Communication Primary Language: IRISH Communication: Yes: Non-Communicable Oral Expression Ability: Yes: Non-Verbal (Baseline at [facility], pt was able to converse. I called [facility] and confirmed this with rehab dept.Pt seen after dialysis, slumped in chair, looked up. Not verbally responsive.) - Speech Production Able to Make Needs Known: Yes: Severely Impaired Intelligibility: Yes: Severely Impaired - Speech Characteristics Voice Loudness: Moderately Soft/Quiet Voice Pitch: Yes: Normal Speech Pattern: Impaired Speech Clarity: < 25% - Language/Auditory Comprehension Observation: Able to respond to yes/no queries: No, Comprehends Conversational Speech: No - Language/Verbal Expression Able to Respond to Simple Queries: Yes: Severely Impaired Able to Communicate Wants and Needs: Yes: Severely Impaired Functional Communication Status: Yes: Severely Impaired - Swallow Evaluation/Bedside Assessment Current Nutritional Intake: Thin Liquids, Other (chopped) Facial Symmetry at Rest: Symmetrical A-P Transit: WFL Recommendations - Speech Evaluation, Impression/Plan Impression: Not following commands. Vocal/not verbal. r/o Aphasia? Impaired mentation secelevated ammonia level. Baseline, pt was able to hold a conversation at [facility] and was on a reg diet thin liquid.On bipap. Pt tolerated Po well yesterday. Was able to produce single words, imprecise speech. Case reviewedwith staff. - Dysphagia Impressions/Plan Swallowing Skills: Impaired Dysphagia Impressions: Profound Impairment, Ongoing Evaluation, Suspect Aspiration *Silent aspiration: cannot be R/O at bedside - Recommendations Diet Consistency: NPO, Other (NPO including medication) Liquids: NPO
[2016-08-30] MEDS ORDERED: LACTULOSE 20 GM/30 ML UDC (FOR RECTAL USE ONLY) PR PRN (12:45)
--- NOTE | 2016-08-30 12:50 | PN ---
Progress Note (short form) - Note Progress Note: PULMONARY DNR/DNI UNRESPONSIVE 89/50 HR90 AFEBRILE DIALYSIS UNDERWAY PALE DISTANT B/L ANTERIOR BREATH SOUNDS S1S2 IRREGULAR ABD SOFT NO EDEMA LABS/MEDS/NOTES/IMAGING/ABG REVIEWED Altered Mental Status/Likely hepatic encephalopathy Acute Hypercapneic Respiratory Failure ESRD on HD Acute on Chronic LV Diastolic Heart Failure Atrial Fibrillation RV Dysfunction Pleural Effusions Liver Cirrhosis Hepatic Encephalopathy/Elevated lactulose - Lactulose per rectum - VM O2 tolerated - NIPPV as needed - HD for volume removal as required - NPO for now - titrate FiO2 to keep SpO2 >90% - PO if his mental status allows - DVT/GI prophylaxis Kelby SOTO MD
--- NOTE | 2016-08-30 13:09 | PN ---
Progress Note (short form) - Note Progress Note: called to evaluate patient. Patient has been evaluated by Dr. Rojas 11/18, , 07/21. Advised floor to call Dr. Rojas for further evaluation
--- NOTE | 2016-08-30 14:51 | CON.GI ---
Consult Consult Specialty:: GI Referred by:: Dr. 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: Dementia Cardio/Vascular: Yes: CAD, CHF, HTN, Hyperlipdemia Gastrointestinal: Yes: Other (COLON POLYPS) Hepatobiliary: Yes: Cholelithiasis, Cholecystitis Renal/: Yes: Renal Failure, Renal Inusuff, Hemodialysis - Past Surgical History Past Surgical History: Yes: AV Fistula/Graft, CABG - Alcohol/Substance Use Hx Alcohol Use: No - Smoking History Smoking history: Former smoker Have you smoked in the past 12 months: No Aproximately how many cigarettes per day: 0 - Social History ADL: Support Services History of Recent Travel: No Home Medications - Allergies Allergies/Adverse Reactions: Allergies Allergy/AdvReac Type Severity Reaction Status Date / Time No Known Allergies Allergy Verified 07/05/16 16:09 - Home Medications Home Medications: Ambulatory Orders Acetaminophen [Tylenol] 325 mg PO QID 01/24/16 Aspirin [ASA -] 81 mg PO DAILY 01/24/16 Ergocalciferol [Drisdol -] 50,000 unit PO WEEKLY 01/24/16 Ipratropium/Albuterol Sulfate [Iprat-Albut 0.5-3(2.5) mg/3 ml] 3 ml IH QID 01/23 Levothyroxine [Synthroid -] 112 mcg PO DAILY 01/24/16 Magnesium Chloride [Mag64] 64 mg PO DAILY 01/24/16 Midodrine HCl 10 mg PO TID 01/24/16 Mupirocin Ointment [Bactroban 2% Ointment -] 1 applic TP BID 01/24/16 Pantoprazole Sodium [Protonix] 40 mg PO DAILY 01/24/16 Rifaximin [Xifaxan -] 550 mg PO DAILY 01/24/16 Vitamin B Complex 1 each PO DAILY 01/24/16 Lactulose (Oral Use) [Cephulac -] 10 gm PO BID 05/22/16 Lidocaine 5% Patch [Lidoderm Patch -] 1 patch TP DAILY 07/05/16 Sevelamer Carbonate [Renvela] 800 mg PO TID 07/05/16 Vit B Cmplx 3/FA/Vit C/Biotin [Hailey-Lexi Rx Tablet] 0 mg PO DAILY 07/05/16 Ergocalciferol (Vitamin D2) [Vitamin D2] 50,000 unit PO WEEKLY 08/27/16 Esomeprazole Magnesium [Nexium 24Hr] 20 mg PO DAILY 08/27/16 Physical Exam-GI Vital Signs: Vital Signs Temperature 97.5 F L 08/30/16 14:45 Pulse Rate 95 H 08/30/16 14:45 Respiratory Rate 20 08/30/16 14:45 Blood Pressure 97/40 08/30/16 14:45 O2 Sat by Pulse Oximetry (%) 100 08/30/16 14:00 Labs: CBC, BMP 08/30/16 05:38 08/30/16 05:38
[2016-08-30] MEDS: PANTOPRAZOLE SODIUM 100 ML IVPB SCH (15:43)
[2016-08-30] MEDS: HEPARIN NA (PORCINE) 5,000 UNITS/ML 1ML VIAL SQ SCH (15:49)
[2016-08-30 17:10] LABS: ARTERIAL BLOOD GAS pH 7.37 (7.35-7.45)
[2016-08-30 17:11] LABS: ALLENS TEST POSITIVE; ART PUNCT SITE LEFT RADIAL; ARTERIAL BLD GAS O2 SATURATION 98.4 % (90-98.9); ARTERIAL BLOOD GAS BASE EXCESS 5.3 meq/l (-2-2); LPM/O2% 40%; PT. ON O2? YES; TYPE OF O2 BI-PAP; VENT RATE 22; VT/PRESS 15/5
--- NOTE | 2016-08-30 23:01 | PN ---
Progress Note (short form) - Note Progress Note: seen at 7:30am patient awake / responds to verbal stimuli by looking non verbal / does not follow commands Vital Signs Period Temp Pulse Resp BP Sys/Peck Pulse Ox Last 24 Hr 97.5 F-99 F 82-100 18-22 75-105/32-59 96-100 Intake & Output 08/27/16 08/28/16 08/29/16 08/30/16 23:59 23:59 23:59 23:59 Intake Total 100 180 105 Output Total 100 0 Balance -100 100 180 105 Weight 137 lb 2 oz 133 lb 9.[address] awake lungs clear anteriorly and lateral heart irregular abd soft no guarding ext no edema CBC, BMP 08/30/16 05:38 08/30/16 05:38 Active Medications Acetaminophen (Tylenol -) 325 mg PO QID [facility] Last Admin: 08/30/16 21:41 Dose: Not Given Aspirin (Asa -) 81 mg PO DAILY [facility] Last Admin: 08/30/16 09:56 Dose: Not Given Ergocalciferol (Drisdol -) 50,000 unit PO We@1000 [facility] Last Admin: 08/30/16 09:57 Dose: Not Given Heparin Sodium (Porcine) (Heparin -) 5,000 unit SQ BID [facility] Last Admin: 08/30/16 15:49 Dose: 5,000 unit Pantoprazole Sodium (Protonix 40mg Ivpb (Pre-Docked)) 100 mls @ 200 mls/hr IVPB DAILY [facility] Last Admin: 08/30/16 15:43 Dose: 200 mls/hr Lactulose (Cephulac (Oral Use)) 10 gm PO BID [facility] Last Admin: 08/30/16 21:41 Dose: Not Given Lactulose (Cephulac (Rectal Use)) 200 gm HI Q6H PRN Last Admin: 08/30/16 15:49 Dose: 200 gm Levothyroxine Sodium (Synthroid Injection -) 55 mcg IM DAILY [facility] Last Admin: 08/30/16 15:45 Dose: 55 mcg Lidocaine (Lidoderm Patch -) 1 patch TP DAILY [facility] Last Admin: 08/30/16 15:47 Dose: 1 patch Magnesium Chloride (Slow-Mag -) 64 mg PO DAILY [facility] Last Admin: 08/30/16 09:58 Dose: Not Given Midodrine (Proamatine -) 10 mg PO TID-MID [facility] Last Admin: 08/30/16 17:33 Dose: Not Given Multivit/Ca Carb/B Cmplx/FA/Prenat (Nephro-Lexi -) 1 tablet PO DAILY [facility] Last Admin: 08/30/16 11:58 Dose: Not Given Mupirocin (Bactroban 2% Ointment -) 1 applic TP BID [facility] Last Admin: 08/30/16 21:41 Dose: Not Given Rifaximin (Xifaxan -) 550 mg PO DAILY [facility] Last Admin: 08/30/16 09:59 Dose: Not Given Sevelamer Carbonate (Renvela -) 800 mg PO TIDCM [facility] Last Admin: 08/30/16 17:33 Dose: Not Given teletry Afib with pvc 86 y/o male with 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 Family (HCP ) aware of patients comorbitities and poor prognosis, have established orders for no intubation or resucutation, along with no central line or pressors for BP assist. Problem List - Problems (1) Hypoxia Code(s): R09.02 - HYPOXEMIA (2) Fluid excess Code(s): E87.70 - FLUID OVERLOAD, UNSPECIFIED (3) Altered mental status Code(s): R41.82 - ALTERED MENTAL STATUS, UNSPECIFIED (4) Acute on chronic diastolic (congestive) heart failure Code(s): I50.33 - ACUTE ON CHRONIC DIASTOLIC (CONGESTIVE) HEART FAILURE (5) Liver cirrhosis Code(s): K74.60 - UNSPECIFIED CIRRHOSIS OF LIVER (6) Pleural effusion Code(s): J90 - PLEURAL EFFUSION, NOT ELSEWHERE CLASSIFIED (7) Altered awareness, transient Code(s): R40.4 - TRANSIENT ALTERATION OF AWARENESS (8) Atrial fibrillation Code(s): I48.91 - UNSPECIFIED ATRIAL FIBRILLATION (9) CHF (congestive heart failure) Code(s): I50.9 - HEART FAILURE, UNSPECIFIED Qualifiers: Qualified Code(s): I50.9 - Heart failure, unspecified (10) End stage renal disease on dialysis Code(s): N18.6 - END STAGE RENAL DISEASE Z99.2 - DEPENDENCE ON RENAL DIALYSIS (11) Hepatic encephalopathy Code(s): K72.90 - HEPATIC FAILURE, UNSPECIFIED WITHOUT COMA (12) Hypothyroidism Code(s): E03.9 - HYPOTHYROIDISM, UNSPECIFIED (13) Lethargy Code(s): R53.83 - OTHER FATIGUE
[2016-08-31] MEDS: HEPARIN NA (PORCINE) 5,000 UNITS/ML 1ML VIAL SQ SCH ×3 (00:18→22:11)
[2016-08-31 08:13] LABS: BASOPHIL 0.3 % (0-2.0); EOSINOPHIL 1.8 % (0-4.5); MCH 33.5 pg (25.7-33.7); MCHC 31.3 g/dl (32.0-35.9); MEAN PLT VOLUME 9.1 fl (7.5-11.1); NEUTROPHILS 76.2 % (42.8-82.8); PLATELET COUNT 81 K/MM3 (134-434); WHITE BLOOD COUNT 5.4 K/mm3 (4.0-10.0)
[2016-08-31] MEDS: ALBUMIN HUMAN 25% 50 ML VIAL IVPB SCH ×4 (08:30→10:00)
[2016-08-31 08:50] LABS: CALCIUM 8.8 mg/dL (8.5-10.1); CREATININE 3.4 mg/dL (0.7-1.3)
--- NOTE | 2016-08-31 09:23 | CON.GI ---
Consult Consult Specialty:: GASTROENTEROLOGY Reason for Consultation:: CHANGE IN MENTAL STATUS/CO2 RETENTION/POSSIBLE HEPATIC ENCEPHALOPATHY - History of Present Illness Chief Complaint: change in mental staus History of Present Illness: 86 year old male that I know fro prior admissions. His history includes severe sepsis from cholecystitis that was treated with cholecystomy tube. The patient never had surgery despite his prolonged course of infection due to multiple problems with the tube. On all of his scans and imaging there was never any suggestion of cirrhosis. he has had episodes of changes in mental status and he ahs been evaluated for this before. Neurology thought it was related to a metabolic issue. Pulmonary was seeing him for CO2 retention. He has even had episodes of mental status changes during and after dialysis. I have been called to evaluate a change in mental status while his ABG CO2 levels have been as high as 70! Someone ordered an ammonia level and this was elevated. I saw him today during dialysis. He was on bipap. He was easily arousable. he had no complaints of abdominal pain. 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 Cardio/Vascular: Yes: CAD, CHF, HTN, Hyperlipdemia Gastrointestinal: Yes: Other (COLON POLYPS) Hepatobiliary: Yes: Cholelithiasis, Cholecystitis Renal/: Yes: Renal Failure, Renal Inusuff, Hemodialysis - Past Surgical History Past Surgical History: Yes: AV Fistula/Graft, CABG Additional Surgical History: hx of cholecystomy tube - Alcohol/Substance Use Hx Alcohol Use: No - Smoking History Smoking history: Former smoker Have you smoked in the past 12 months: No Aproximately how many cigarettes per day: 0 - Social History ADL: Support Services History of Recent Travel: No Home Medications - Allergies Allergies/Adverse Reactions: Allergies Allergy/AdvReac Type Severity Reaction Status Date / Time No Known Allergies Allergy Verified 07/05/16 16:09 - Home Medications Home Medications: Ambulatory Orders Acetaminophen [Tylenol] 325 mg PO QID 01/24/16 Aspirin [ASA -] 81 mg PO DAILY 01/24/16 Ergocalciferol [Drisdol -] 50,000 unit PO WEEKLY 01/24/16 Ipratropium/Albuterol Sulfate [Iprat-Albut 0.5-3(2.5) mg/3 ml] 3 ml IH QID 01/23 Levothyroxine [Synthroid -] 112 mcg PO DAILY 01/24/16 Magnesium Chloride [Mag64] 64 mg PO DAILY 01/24/16 Midodrine HCl 10 mg PO TID 01/24/16 Mupirocin Ointment [Bactroban 2% Ointment -] 1 applic TP BID 01/24/16 Pantoprazole Sodium [Protonix] 40 mg PO DAILY 01/24/16 Rifaximin [Xifaxan -] 550 mg PO DAILY 01/24/16 Vitamin B Complex 1 each PO DAILY 01/24/16 Lactulose (Oral Use) [Cephulac -] 10 gm PO BID 05/22/16 Lidocaine 5% Patch [Lidoderm Patch -] 1 patch TP DAILY 07/05/16 Sevelamer Carbonate [Renvela] 800 mg PO TID 07/05/16 Vit B Cmplx 3/FA/Vit C/Biotin [Hailey-Lexi Rx Tablet] 0 mg PO DAILY 07/05/16 Ergocalciferol (Vitamin D2) [Vitamin D2] 50,000 unit PO WEEKLY 08/27/16 Esomeprazole Magnesium [Nexium 24Hr] 20 mg PO DAILY 08/27/16 Review of Systems Unable to obtain ROS, reason: dementia Physical Exam-GI Vital Signs: Vital Signs Temperature 97.2 F L 08/31/16 05:43 Pulse Rate 96 H 08/31/16 05:43 Respiratory Rate 20 08/31/16 05:43 Blood Pressure 86/47 08/31/16 05:43 O2 Sat by Pulse Oximetry (%) 100 08/30/16 23:20 Constitutional: Yes: Calm Eyes: Yes: Conjunctiva Clear HENT: Yes: Normocephalic Neck: Yes: Supple Cardiovascular: Yes: Regular Rate and Rhythm Respiratory: Yes: Diminished, Other (bases) Gastrointestinal Inspection: Yes: WNL ...Auscultate: Yes: Normoactive Bowel Sounds ...Palpate: Yes: Soft Extremities: Yes: WNL Edema: Yes Labs: CBC, BMP 08/31/16 06:10 08/31/16 06:10 Laboratory Tests 08/27/16 08/27/16 08/27/16 10:32 14:15 14:15 WBC RBC Hgb Hct MCV MCHC RDW Plt Count MPV Neutrophils % Lymphocytes % Monocytes % Eosinophils % Basophils % ABG pH 7.11 L* ABG pCO2 at Pt Temp ABG pO2 at Pt Temp 226.0 H* BUN Creatinine Ammonia Hepatitis A IgM Ab Negative Hepatitis A Ab Total Positive H Hep Bs Antigen Negative Hep Bs Antibody Non reactive Hep B Core Total Ab Negative Hepatitis C Antibody 0.1 08/28/16 08/29/16 08/29/16 07:05 05:05 07:25 WBC RBC Hgb Hct MCV MCHC RDW Plt Count MPV Neutrophils % Lymphocytes % Monocytes % Eosinophils % Basophils % ABG pH 7.21 L* 7.31 L ABG pCO2 at Pt Temp 73.8 H* 58.4 H D ABG pO2 at Pt Temp 250.0 H* D 68.6 D BUN Creatinine Ammonia 42.73 H Hepatitis A IgM Ab Hepatitis A Ab Total Hep Bs Antigen Hep Bs Antibody Hep B Core Total Ab Hepatitis C Antibody 08/30/16 08/30/16 08/30/16 05:38 08:12 16:45 WBC RBC Hgb Hct MCV MCHC RDW Plt Count MPV Neutrophils % Lymphocytes % Monocytes % Eosinophils % Basophils % ABG pH 7.31 L 7.37 ABG pCO2 at Pt Temp 60.6 H* 55.0 H ABG pO2 at Pt Temp 86.7 D 102.0 H BUN Creatinine Ammonia 65.2 H Hepatitis A IgM Ab Hepatitis A Ab Total Hep Bs Antigen Hep Bs Antibody Hep B Core Total Ab Hepatitis C Antibody 08/31/16 08/31/16 08/31/16 06:10 06:10 06:10 WBC 5.4 RBC 3.01 L Hgb 10.1 L Hct 32.2 L MCV 107.0 H MCHC 31.3 L RDW 20.0 H Plt Count 81 L MPV 9.1 Neutrophils % 76.2 Lymphocytes % 10.6 D Monocytes % 11.1 H D Eosinophils % 1.8 D Basophils % 0.3 ABG pH ABG pCO2 at Pt Temp ABG pO2 at Pt Temp BUN 18 D Creatinine 3.4 H D Ammonia 31.3 Hepatitis A IgM Ab Hepatitis A Ab Total Hep Bs Antigen Hep Bs Antibody Hep B Core Total Ab Hepatitis C Antibody Assessment/Plan Change in Mental status: As last in consultation, I do not believe that Brayan has advance hepatocelluar disease. The use of ammonia levels has been proven not to be helpful in the diagnosis or exclusion of hepatic encephalopathy (HE). Any systemic shunting or metabolic insult can cause an elevated ammonia. All prior imaging of his liver would not suggest liver disease. I have ordered another US. A liver biopsy would be the definitive test for the diagnosis. We could send of a fibrosure blood test I would continue to treat the CO2 retention and any suspected infection, correct acidosis and uremia. I would suggest a repeat neuro consult to rule out other causes of encephalopathy. If he does not respond to the above then lactulose would be worth trying.
--- NOTE | 2016-08-31 09:29 | CON.GI ---
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 Cardio/Vascular: Yes: CAD, CHF, HTN, Hyperlipdemia Gastrointestinal: Yes: Other (COLON POLYPS) Hepatobiliary: Yes: Cholelithiasis, Cholecystitis Renal/: Yes: Renal Failure, Renal Inusuff, Hemodialysis - Past Surgical History Past Surgical History: Yes: AV Fistula/Graft, CABG - Alcohol/Substance Use Hx Alcohol Use: No - Smoking History Smoking history: Former smoker Have you smoked in the past 12 months: No Aproximately how many cigarettes per day: 0 - Social History ADL: Support Services History of Recent Travel: No Home Medications - Allergies Allergies/Adverse Reactions: Allergies Allergy/AdvReac Type Severity Reaction Status Date / Time No Known Allergies Allergy Verified 07/05/16 16:09 - Home Medications Home Medications: Ambulatory Orders Acetaminophen [Tylenol] 325 mg PO QID 01/24/16 Aspirin [ASA -] 81 mg PO DAILY 01/24/16 Ergocalciferol [Drisdol -] 50,000 unit PO WEEKLY 01/24/16 Ipratropium/Albuterol Sulfate [Iprat-Albut 0.5-3(2.5) mg/3 ml] 3 ml IH QID 01/23 Levothyroxine [Synthroid -] 112 mcg PO DAILY 01/24/16 Magnesium Chloride [Mag64] 64 mg PO DAILY 01/24/16 Midodrine HCl 10 mg PO TID 01/24/16 Mupirocin Ointment [Bactroban 2% Ointment -] 1 applic TP BID 01/24/16 Pantoprazole Sodium [Protonix] 40 mg PO DAILY 01/24/16 Rifaximin [Xifaxan -] 550 mg PO DAILY 01/24/16 Vitamin B Complex 1 each PO DAILY 01/24/16 Lactulose (Oral Use) [Cephulac -] 10 gm PO BID 05/22/16 Lidocaine 5% Patch [Lidoderm Patch -] 1 patch TP DAILY 07/05/16 Sevelamer Carbonate [Renvela] 800 mg PO TID 07/05/16 Vit B Cmplx 3/FA/Vit C/Biotin [Hailey-Lexi Rx Tablet] 0 mg PO DAILY 07/05/16 Ergocalciferol (Vitamin D2) [Vitamin D2] 50,000 unit PO WEEKLY 08/27/16 Esomeprazole Magnesium [Nexium 24Hr] 20 mg PO DAILY 08/27/16 Physical Exam-GI Vital Signs: Vital Signs Temperature 98.2 F 08/31/16 09:27 Pulse Rate 92 H 08/31/16 09:27 Respiratory Rate 18 08/31/16 09:27 Blood Pressure 84/40 08/31/16 09:27 O2 Sat by Pulse Oximetry (%) 100 08/30/16 23:20 Labs: CBC, BMP 08/31/16 06:10 08/31/16 06:10
[2016-08-31] MEDS: SEVELAMER CARBONATE 800 MG TAB (FP) PO SCH ×3 (09:35→17:42)
[2016-08-31] MEDS: ASPIRIN 81 MG CHEWABLE TABLETS PO SCH (09:35)
[2016-08-31] MEDS: LACTULOSE 20 GM/30 ML UDC (FOR ORAL USE ONLY) PO SCH ×2 (09:36→22:11)
[2016-08-31] MEDS: RIFAXIMIN 550 MG TABLET (UD) PO SCH (09:37)
[2016-08-31] MEDS: MIDODRINE HCL 5 MG TABLET PO SCH ×3 (09:37→17:42)
[2016-08-31] MEDS: VITAMIN B COMP W-C 1 EA TABLET PO SCH (09:37)
[2016-08-31] MEDS: MAGNESIUM CL 64 MG TABLET.SA PO SCH (09:38)
[2016-08-31] MEDS: ACETAMINOPHEN 325 MG TABLET (FP) PO SCH ×4 (10:37→22:05)
--- NOTE | 2016-08-31 11:04 | CON.CARD ---
Consult Consult Specialty:: Cardiology Referred by:: Gasper Denis MD Reason for Consultation:: CHF, wide complex tachycardia - History of Present Illness Chief Complaint: Dyspnea History of Present Illness: 86yo male with h/o HTN, CAD s/p CABG, ESRD on HD, RV dysfunction initially referred from long term for hypoxia and lethargy in context of diastolic failure with bilateral effusions requiring NIPPV and emergent HD, O2 requirement decreasing with volume removal via HD, cannot provide history. 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 Cardio/Vascular: Yes: CAD, CHF, HTN, Hyperlipdemia Gastrointestinal: Yes: Other (COLON POLYPS) Hepatobiliary: Yes: Cholelithiasis, Cholecystitis Renal/: Yes: Renal Failure, Renal Inusuff, Hemodialysis - Past Surgical History Past Surgical History: Yes: AV Fistula/Graft, CABG - Alcohol/Substance Use Hx Alcohol Use: No - Smoking History Smoking history: Former smoker Have you smoked in the past 12 months: No Aproximately how many cigarettes per day: 0 - Social History ADL: Support Services History of Recent Travel: No Home Medications - Allergies Allergies/Adverse Reactions: Allergies Allergy/AdvReac Type Severity Reaction Status Date / Time No Known Allergies Allergy Verified 07/05/16 16:09 - Home Medications Home Medications: Ambulatory Orders Acetaminophen [Tylenol] 325 mg PO QID 01/24/16 Aspirin [ASA -] 81 mg PO DAILY 01/24/16 Ergocalciferol [Drisdol -] 50,000 unit PO WEEKLY 01/24/16 Ipratropium/Albuterol Sulfate [Iprat-Albut 0.5-3(2.5) mg/3 ml] 3 ml IH QID 01/23 Levothyroxine [Synthroid -] 112 mcg PO DAILY 01/24/16 Magnesium Chloride [Mag64] 64 mg PO DAILY 01/24/16 Midodrine HCl 10 mg PO TID 01/24/16 Mupirocin Ointment [Bactroban 2% Ointment -] 1 applic TP BID 01/24/16 Pantoprazole Sodium [Protonix] 40 mg PO DAILY 01/24/16 Rifaximin [Xifaxan -] 550 mg PO DAILY 01/24/16 Vitamin B Complex 1 each PO DAILY 01/24/16 Lactulose (Oral Use) [Cephulac -] 10 gm PO BID 05/22/16 Lidocaine 5% Patch [Lidoderm Patch -] 1 patch TP DAILY 07/05/16 Sevelamer Carbonate [Renvela] 800 mg PO TID 07/05/16 Vit B Cmplx 3/FA/Vit C/Biotin [Hailey-Lexi Rx Tablet] 0 mg PO DAILY 07/05/16 Ergocalciferol (Vitamin D2) [Vitamin D2] 50,000 unit PO WEEKLY 08/27/16 Esomeprazole Magnesium [Nexium 24Hr] 20 mg PO DAILY 08/27/16 Review of Systems - Review of Systems Cardiovascular: reports: Shortness of Breath Neurological: reports: Confusion Vital Signs: Vital Signs Temperature 98.2 F 08/31/16 09:27 Pulse Rate 90 08/31/16 09:55 Respiratory Rate 18 08/31/16 09:55 Blood Pressure 80/52 08/31/16 09:55 O2 Sat by Pulse Oximetry (%) 100 08/30/16 23:20 Constitutional: Yes: No Distress, Calm, Thin Neck: Yes: Supple Respiratory: Yes: On BiPap, Rhonchi Gastrointestinal: Yes: Soft, Hypoactive Bowel Sounds Cardiovascular: Yes: Pulse Irregular JVD: Yes Carotid Bruit: No Heart Sounds: Yes: S1, S2 Murmur: Yes: Systolic Murmur, Grade 1 Edema: No - Other Data Labs, Other Data: CBC, BMP 08/31/16 06:10 08/31/16 06:10 Afib @ 87 RBBB, LPFB Ejection Fraction %: LVEF > or = 40 % Assessment/Plan 08/28/3016 Echo: Severely dilated RV with mod-severe decrease RV fxn, normal LV size and fxn, mild cLVH, severe TR, mod MR, flattened septum c/w RV volume/ pressure overload, AYESHA with dilated IVC Problem List - Problems (1) Acute hypercapnic respiratory failure Code(s): J96.02 - ACUTE RESPIRATORY FAILURE WITH HYPERCAPNIA (2) Altered mental status Code(s): R41.82 - ALTERED MENTAL STATUS, UNSPECIFIED (3) End stage renal disease on dialysis Code(s): N18.6 - END STAGE RENAL DISEASE Z99.2 - DEPENDENCE ON RENAL DIALYSIS (4) Pleural effusion Code(s): J90 - PLEURAL EFFUSION, NOT ELSEWHERE CLASSIFIED (5) Acute on chronic diastolic (congestive) heart failure Code(s): I50.33 - ACUTE ON CHRONIC DIASTOLIC (CONGESTIVE) HEART FAILURE (6) Liver cirrhosis Code(s): K74.60 - UNSPECIFIED CIRRHOSIS OF LIVER (7) Hepatic encephalopathy Code(s): K72.90 - HEPATIC FAILURE, UNSPECIFIED WITHOUT COMA (8) Atrial fibrillation Code(s): I48.91 - UNSPECIFIED ATRIAL FIBRILLATION 1. Acute hypercapneic respiratory failure 2. Acute on Chronic LV Diastolic Heart Failure with RV failure with pleural effusions 3. Persistent afib 4. ESLD with Hepatic Encephalopathy 5. ESRD->HD 6. Hypothyroidism P:1. Telemetry strip showing irregular wide complex tachycardia likely episodes of rapid afib with aberrant conduction 2. Volume removal via HD 3. Midodrine 10 tid as hemodynamics require 4. Not ideal a/c candidate 5. NIPPV with titrate FiO2 to keep SpO2 >90%, BD 6. DVT/GI prophylaxis, Rifaximin and lactulose 7. Thank you for consultative opportunity
[2016-08-31] MEDS: LIDOCAINE 5% TOPICAL PATCH TP SCH (12:36)
[2016-08-31] MEDS: MUPIROCIN 2% TOPICAL OINTMENT 22 GM TUBE TP SCH ×2 (12:36→22:02)
[2016-08-31] MEDS: LEVOTHYROXINE SODIUM 100 MCG VIAL IM SCH (12:38)
[2016-08-31] MEDS: PANTOPRAZOLE SODIUM 100 ML IVPB SCH (14:00)
--- NOTE | 2016-08-31 14:11 | PN ---
Progress Note (short form) - Note Progress Note: Renal Follow up for ESRD on HD Pt seen and examined at the bedside with isolated UF BP marginal but stable getting albumin UF goal is 2L pt is awake and alert no acute complaints Vital Signs Temperature 98.2 F 08/31/16 09:27 Pulse Rate 90 08/31/16 09:55 Respiratory Rate 18 08/31/16 09:55 Blood Pressure 80/52 08/31/16 09:55 O2 Sat by Pulse Oximetry (%) 100 08/30/16 23:20 Intake & Output 08/28/16 08/29/16 08/30/16 08/31/16 23:59 23:59 23:59 23:59 Intake Total 100 180 105 Output Total 0 Balance 100 180 105 Weight 137 lb 2 oz 133 lb 9.602 oz 136 lb 2 oz Gen: NAD on BIPAP CVS: RRR, No M/R Lungs: Dec BS throughout the lung mandujano Abd: soft NT/ND Ext: No edema, clubbing or cyanosis CBC, BMP 08/31/16 06:10 08/31/16 06:10 Current Medications Acetaminophen (Tylenol -) 325 mg PO QID [facility] Last Admin: 08/31/16 10:37 Dose: Not Given Aspirin (Asa -) 81 mg PO DAILY [facility] Last Admin: 08/31/16 09:35 Dose: Not Given Ergocalciferol (Drisdol -) 50,000 unit PO We@1000 [facility] Heparin Sodium (Porcine) (Heparin -) 5,000 unit SQ BID [facility] Last Admin: 08/31/16 12:36 Dose: 5,000 unit Pantoprazole Sodium (Protonix 40mg Ivpb (Pre-Docked)) 100 mls @ 200 mls/hr IVPB DAILY [facility] Last Admin: 08/30/16 15:43 Dose: 200 mls/hr Lactulose (Cephulac (Oral Use)) 10 gm PO BID [facility] Last Admin: 08/31/16 09:36 Dose: Not Given Lactulose (Cephulac (Rectal Use)) 200 gm DC Q6H PRN Last Admin: 08/30/16 15:49 Dose: 200 gm Levothyroxine Sodium (Synthroid Injection -) 55 mcg IM DAILY [facility] Last Admin: 08/31/16 12:38 Dose: 55 mcg Lidocaine (Lidoderm Patch -) 1 patch TP DAILY [facility] Last Admin: 08/31/16 12:36 Dose: 1 patch Magnesium Chloride (Slow-Mag -) 64 mg PO DAILY [facility] Last Admin: 08/31/16 09:38 Dose: Not Given Midodrine (Proamatine -) 10 mg PO TID-MID [facility] Last Admin: 08/31/16 09:37 Dose: Not Given Multivit/Ca Carb/B Cmplx/FA/Prenat (Nephro-Lexi -) 1 tablet PO DAILY [facility] Last Admin: 08/31/16 09:37 Dose: Not Given Mupirocin (Bactroban 2% Ointment -) 1 applic TP BID [facility] Last Admin: 08/31/16 12:36 Dose: Not Given Rifaximin (Xifaxan -) 550 mg PO DAILY [facility] Last Admin: 08/31/16 09:37 Dose: Not Given Sevelamer Carbonate (Renvela -) 800 mg PO TIDCM [facility] Last Admin: 08/31/16 12:35 Dose: Not Given A/P This is a 86 year old Gentleman with PMhx of ESRD on HD (MWF), Chronic Cholecystitis, Dementia, DM, Hypertension, Afib with SOB and found to have extrensive pulmonary vascular congestion and hypoxia #ESRD with volume overload Tolerated Isolated UF today Will plan for dialysis tomorrow with additional UF as tolerated #SOB/Hypoxia/Fluid over laod/CHF/AMS CXR shows persistent effusions continue BIPAP as per pulmonary #Anemia Hgb at [facility] Steve LUND
--- NOTE | 2016-08-31 14:58 | PN ---
Progress Note, INSTRUCTIONAL ASSISTANT - Note Progress Note: Much more alert today. On Bipap. VM trialed with o2 sat at 95%. Swallow assessed. Delayed in onset, at times not triggered without verbal reminder. Swallow is fair in strength. Responsive cough with thin liquid. Suspect mild stasis due to weak swallow, with risk of aspiration on thick liquid and aspiration on thin liquid. REC: When alert and RR not tachypneic, trial of dys puree and nectar thick liquid on a tsp. NC if pt can tolerate during meals. TELL pt to swallow with each bite/sip, and palpate larynx for swallow reflex. Give time after PO feeding and provide mouth care before placing BIPAP. Monitor pulm status. If congestion/cough, may benefit from MBS.
--- NOTE | 2016-08-31 15:13 | PN ---
Progress Note (short form) - Note Progress Note: PULMONARY Breathing better today. More alert, awake. No fevers recorded. Off BiPAP now on 40% ventimask. Last Vital Signs Temp Pulse Resp BP Pulse Ox 97.7 F 91 H 20 80/47 100 08/31/16 14:17 08/31/16 14:17 08/31/16 14:17 08/31/16 14:17 08/30/16 23:20 Gen: NAD at rest Heart: RRR Lung: decreased breath sounds at the bases Abd: soft, nontender Ext: no edema CBC, BMP 08/31/16 06:10 08/31/16 06:10 Active Medications Acetaminophen (Tylenol -) 325 mg PO QID [facility] Last Admin: 08/31/16 10:37 Dose: Not Given Aspirin (Asa -) 81 mg PO DAILY [facility] Last Admin: 08/31/16 09:35 Dose: Not Given Ergocalciferol (Drisdol -) 50,000 unit PO We@1000 [facility] Heparin Sodium (Porcine) (Heparin -) 5,000 unit SQ BID [facility] Last Admin: 08/31/16 12:36 Dose: 5,000 unit Pantoprazole Sodium (Protonix 40mg Ivpb (Pre-Docked)) 100 mls @ 200 mls/hr IVPB DAILY [facility] Last Admin: 08/30/16 15:43 Dose: 200 mls/hr Lactulose (Cephulac (Oral Use)) 10 gm PO BID [facility] Last Admin: 08/31/16 09:36 Dose: Not Given Lactulose (Cephulac (Rectal Use)) 200 gm MA Q6H PRN Last Admin: 08/30/16 15:49 Dose: 200 gm Levothyroxine Sodium (Synthroid Injection -) 55 mcg IM DAILY [facility] Last Admin: 08/31/16 12:38 Dose: 55 mcg Lidocaine (Lidoderm Patch -) 1 patch TP DAILY [facility] Last Admin: 08/31/16 12:36 Dose: 1 patch Magnesium Chloride (Slow-Mag -) 64 mg PO DAILY [facility] Last Admin: 08/31/16 09:38 Dose: Not Given Midodrine (Proamatine -) 10 mg PO TID-MID [facility] Last Admin: 08/31/16 09:37 Dose: Not Given Multivit/Ca Carb/B Cmplx/FA/Prenat (Nephro-Lexi -) 1 tablet PO DAILY [facility] Last Admin: 08/31/16 09:37 Dose: Not Given Mupirocin (Bactroban 2% Ointment -) 1 applic TP BID [facility] Last Admin: 08/31/16 12:36 Dose: Not Given Rifaximin (Xifaxan -) 550 mg PO DAILY [facility] Last Admin: 08/31/16 09:37 Dose: Not Given Sevelamer Carbonate (Renvela -) 800 mg PO TIDCM [facility] Last Admin: 08/31/16 12:35 Dose: Not Given A/P Altered Mental Status improving Acute on Chronic Hypercapneic Respiratory Failure ESRD on HD Acute on Chronic LV Diastolic Heart Failure Atrial Fibrillation RV Dysfunction Pleural Effusions Liver Cirrhosis - HD per renal with ultrafiltration - lactulose, rifaximin - monitor ammonia level - titrate FiO2 to keep SpO2 >90% - BiPAP as needed to assist in work of breathing - DVT/GI prophylaxis Problem List - Problems (1) Acute hypercapnic respiratory failure Code(s): J96.02 - ACUTE RESPIRATORY FAILURE WITH HYPERCAPNIA (2) Altered mental status Code(s): R41.82 - ALTERED MENTAL STATUS, UNSPECIFIED (3) End stage renal disease on dialysis Code(s): N18.6 - END STAGE RENAL DISEASE Z99.2 - DEPENDENCE ON RENAL DIALYSIS (4) Pleural effusion Code(s): J90 - PLEURAL EFFUSION, NOT ELSEWHERE CLASSIFIED (5) Acute on chronic diastolic (congestive) heart failure Code(s): I50.33 - ACUTE ON CHRONIC DIASTOLIC (CONGESTIVE) HEART FAILURE (6) Liver cirrhosis Code(s): K74.60 - UNSPECIFIED CIRRHOSIS OF LIVER (7) Hepatic encephalopathy Code(s): K72.90 - HEPATIC FAILURE, UNSPECIFIED WITHOUT COMA (8) Atrial fibrillation Code(s): I48.91 - UNSPECIFIED ATRIAL FIBRILLATION
[2016-09-01] MEDS: SEVELAMER CARBONATE 800 MG TAB (FP) PO SCH ×3 (08:00→18:40)
[2016-09-01] MEDS: MIDODRINE HCL 5 MG TABLET PO SCH ×3 (09:00→18:40)
[2016-09-01] MEDS: ACETAMINOPHEN 325 MG TABLET (FP) PO SCH ×4 (09:00→21:12)
[2016-09-01] MEDS ORDERED: PT OWN MED DRAWER 7, Y5N ONE (09:06)
--- NOTE | 2016-09-01 09:15 | PN ---
Progress Note (short form) - Note Progress Note: patient seen early am seems more alert - still non verbal / or interactive Discussed with (HCP ) Madeline rivas. The family has requested for family meeting for palliative care - to include discontinuation of HD I have explained to Madeline - process and answered all her questions. I recommend she discuss this futher with close family members -- I will discuss this again with her in the morning. Vital Signs Period Temp Pulse Resp BP Sys/Peck Pulse Ox Last 24 Hr 97.5 F-98.2 F 80-98 18-20 70-87/32-82 97-100 no distress not interactive neck supple heart irregular lungs clear ant and lat ext no edema CBC, BMP 08/31/16 06:10 08/31/16 06:10 Active Medications Acetaminophen (Tylenol -) 325 mg PO QID [facility] Last Admin: 08/31/16 22:05 Dose: 325 mg Aspirin (Asa -) 81 mg PO DAILY [facility] Last Admin: 08/31/16 09:35 Dose: Not Given Ergocalciferol (Drisdol -) 50,000 unit PO We@1000 [facility] Heparin Sodium (Porcine) (Heparin -) 5,000 unit SQ BID [facility] Last Admin: 08/31/16 22:11 Dose: 5,000 unit Pantoprazole Sodium (Protonix 40mg Ivpb (Pre-Docked)) 100 mls @ 200 mls/hr IVPB DAILY [facility] Last Admin: 08/31/16 14:00 Dose: 200 mls/hr Lactulose (Cephulac (Oral Use)) 10 gm PO BID [facility] Last Admin: 08/31/16 22:11 Dose: 10 gm Lactulose (Cephulac (Rectal Use)) 200 gm [place] Q6H PRN Last Admin: 08/30/16 15:49 Dose: 200 gm Levothyroxine Sodium (Synthroid Injection -) 55 mcg IM DAILY [facility] Last Admin: 08/31/16 12:38 Dose: 55 mcg Lidocaine (Lidoderm Patch -) 1 patch TP DAILY [facility] Last Admin: 08/31/16 12:36 Dose: 1 patch Magnesium Chloride (Slow-Mag -) 64 mg PO DAILY [facility] Last Admin: 08/31/16 09:38 Dose: Not Given Midodrine (Proamatine -) 10 mg PO TID-MID [facility] Last Admin: 08/31/16 17:42 Dose: 10 mg Multivit/Ca Carb/B Cmplx/FA/Prenat (Nephro-Lexi -) 1 tablet PO DAILY [facility] Last Admin: 08/31/16 09:37 Dose: Not Given Mupirocin (Bactroban 2% Ointment -) 1 applic TP BID [facility] Last Admin: 08/31/16 22:02 Dose: Not Given Rifaximin (Xifaxan -) 550 mg PO DAILY [facility] Last Admin: 08/31/16 09:37 Dose: Not Given Sevelamer Carbonate (Renvela -) 800 mg PO TIDCM [facility] Last Admin: 08/31/16 17:42 Dose: 800 mg 86 y/o male with 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 Family (HCP ) aware of patients comorbitities and poor prognosis, have established orders for no intubation or resucutation, along with no central line or pressors for BP assist. Family no with consideration for removal oh HD Problem List - Problems (1) Hypoxia Code(s): R09.02 - HYPOXEMIA (2) Fluid excess Code(s): E87.70 - FLUID OVERLOAD, UNSPECIFIED (3) Altered mental status Code(s): R41.82 - ALTERED MENTAL STATUS, UNSPECIFIED (4) Acute on chronic diastolic (congestive) heart failure Code(s): I50.33 - ACUTE ON CHRONIC DIASTOLIC (CONGESTIVE) HEART FAILURE (5) Liver cirrhosis Code(s): K74.60 - UNSPECIFIED CIRRHOSIS OF LIVER (6) Pleural effusion Code(s): J90 - PLEURAL EFFUSION, NOT ELSEWHERE CLASSIFIED (7) Altered awareness, transient Code(s): R40.4 - TRANSIENT ALTERATION OF AWARENESS (8) Atrial fibrillation Code(s): I48.91 - UNSPECIFIED ATRIAL FIBRILLATION (9) CHF (congestive heart failure) Code(s): I50.9 - HEART FAILURE, UNSPECIFIED Qualifiers: Qualified Code(s): I50.9 - Heart failure, unspecified (10) End stage renal disease on dialysis Code(s): N18.6 - END STAGE RENAL DISEASE Z99.2 - DEPENDENCE ON RENAL DIALYSIS (11) Hepatic encephalopathy Code(s): K72.90 - HEPATIC FAILURE, UNSPECIFIED WITHOUT COMA (12) Hypothyroidism Code(s): E03.9 - HYPOTHYROIDISM, UNSPECIFIED (13) Lethargy Code(s): R53.83 - OTHER FATIGUE
[2016-09-01 11:00] LABS: MCH 33.1 pg (25.7-33.7); MCHC 31.1 g/dl (32.0-35.9); MEAN CELL VOLUME 106.4 fl (80-96); PLATELET COUNT 85 K/MM3 (134-434); RDW 19.7 % (11.9-15.9); WHITE BLOOD COUNT 5.8 K/mm3 (4.0-10.0)
[2016-09-01 11:23] LABS: CALCIUM 8.9 mg/dL (8.5-10.1); CREATININE 5.4 mg/dL (0.7-1.3); PHOSPHOROUS 2.3 mg/dL (2.5-4.9)
--- NOTE | 2016-09-01 11:49 | PN ---
Progress Note, [employer] - Note Progress Note: Receiving HD. On bipap.Sleepy. Would benefit from MBS, when medically appropriate. Reportedly tolerated diet yesterday. Selected Entries 08/31/16 08/31/16 08/31/16 02:43 05:43 09:27 Supper Temperature 97.4 F L 97.2 F L 98.2 F 08/31/16 08/31/16 08/31/16 14:17 17:00 19:12 Supper 50% Temperature 97.7 F 97.8 F 08/31/16 09/01/16 09/01/16 20:57 01:55 08:05 Supper Temperature 97.9 F 97.5 F L 98.2 F 09/01/16 09:40 Supper Temperature 97.8 F Laboratory Tests 09/01/16 09:40 WBC 5.8 Dys puree/nectar/magic cup
--- NOTE | 2016-09-01 12:19 | PN ---
Progress Note (short form) - Note Progress Note: S: 86 year old gentleman, with history of ESRD, hemodialysis dependent, CAD s/p CABG, hypertension, congestive heart failure and hypothyroidism. Admitted with lethargy and hypoxia. Patient is currently under going hemodialysis and is currently ion BiPap, unable to give a history. On reviewing the chart patient appears to be improving. No chest pain or discomfort has been documented. Active Medications Generic Name Dose Route Start Last Admin Trade Name Freq PRN Reason Stop Dose Admin Acetaminophen 325 mg 08/31/16 10:00 08/31/16 22:05 Tylenol - PO 325 mg QID [facility] Administration Aspirin 81 mg 08/31/16 10:00 08/31/16 09:35 Asa - PO Not Given DAILY [facility] Ergocalciferol 50,000 unit 09/06/16 10:00 Drisdol - PO We@1000 DAVIS Heparin Sodium (Porcine) 5,000 unit 08/31/16 10:00 08/31/16 22:11 Heparin - SQ 5,000 unit BID [facility] Administration Pantoprazole Sodium 100 mls @ 200 mls/hr 08/30/16 10:00 08/31/16 14:00 Protonix 40mg Ivpb (Pre-Docked) IVPB 200 mls/hr DAILY [facility] Administration Lactulose 10 gm 08/29/16 22:00 08/31/16 22:11 Cephulac (Oral Use) PO 10 gm BID [facility] Administration Lactulose 200 gm 08/30/16 12:45 08/30/16 15:49 Cephulac (Rectal Use) ID 200 gm Q6H PRN Administration Levothyroxine Sodium 55 mcg 08/31/16 12:30 08/31/16 12:38 Synthroid Injection - IM 55 mcg DAILY [facility] Administration Lidocaine 1 patch 08/31/16 10:00 08/31/16 12:36 Lidoderm Patch - TP 1 patch DAILY [facility] Administration Magnesium Chloride 64 mg 08/31/16 12:30 08/31/16 09:38 Slow-Mag - PO Not Given DAILY [facility] Midodrine 10 mg 08/31/16 10:00 08/31/16 17:42 Proamatine - PO 10 mg TID-MID [facility] Administration Multivit/Ca Carb/B Cmplx/FA/Prenat 1 tablet 08/30/16 10:00 08/31/16 09:37 Nephro-Lexi - PO Not Given [facility] Mupirocin 1 applic 08/31/16 10:00 08/31/16 22:02 Bactroban 2% Ointment - TP Not Given BID [facility] Rifaximin 550 mg 08/30/16 10:00 08/31/16 09:37 Xifaxan - PO Not Given DAILY [facility] Sevelamer Carbonate 800 mg 08/30/16 08:00 08/31/16 17:42 Renvela - PO 800 mg TIDCM [facility] Administration ECG 08/31/16: Atrial fibrillation with rapid ventricular response, low voltage in limb leads. Poor R wave progression V1 to V3. Non specific ST and T wave abnormalities. ECG 09/01/16: Atrial fibrillation with moderate to rapid ventricular response. Compare to earlier ECG, non specific changes in comparable leads. O: 86 year old male was in no acute distress, no pallor, cyanosis, clubbing, or jaundice. Last Vital Signs Temp Pulse Resp BP Pulse Ox 97.8 F 96 H Irregular 18 80/35 100 09/01/16 09:40 09/01/16 11:45 09/01/16 11:45 09/01/16 11:45 09/01/16 06:30 Neck: Supple, no JVD, positive HJR, carotids were equal and upstrokes were normal, no thyromegaly appreciated. Heart: PMI was in the 5th intercostal space, no heaves or thrills, S1 and S2 were normal. No murmurs or gallops were appreciated. Lungs: Decreased breath sounds at both bases. Abdomen: Soft, nontender, no hepatosplenomegaly appreciated, and no palpable masses were felt. Extremities: No calf tenderness or dependent edema. Pulses are normal. CBC, BMP 09/01/16 09:40 09/01/16 09:40 Laboratory Results - last 24 hr 09/01/16 09/01/16 09:40 09:40 WBC 5.8 RBC 3.18 L Hgb 10.5 L Hct 33.8 L MCV 106.4 H MCHC 31.1 L RDW 19.7 H Plt Count 85 L MPV 9.0 Sodium 145 Potassium 3.6 Chloride 102 Carbon Dioxide 33 H Anion Gap 10 BUN 36 H D Creatinine 5.4 H D Random Glucose 112 H Calcium 8.9 Phosphorus 2.3 L Impression: (1) Acute hypercapnic respiratory failure Code(s): J96.02 - ACUTE RESPIRATORY FAILURE WITH HYPERCAPNIA (2) Altered mental status Code(s): R41.82 - ALTERED MENTAL STATUS, UNSPECIFIED (3) End stage renal disease on dialysis Code(s): N18.6 - END STAGE RENAL DISEASE Z99.2 - DEPENDENCE ON RENAL DIALYSIS (4) Pleural effusion Code(s): J90 - PLEURAL EFFUSION, NOT ELSEWHERE CLASSIFIED (5) Acute on chronic congestive heart failure, secondary to right ventricular failure (see echocardiogram report) Code(s): I50.33 - ACUTE ON CHRONIC CONGESTIVE HEART FAILURE (7) History of Hepatic cirrhosis and encephalopathy Code(s): K72.90 - HEPATIC FAILURE, UNSPECIFIED WITHOUT COMA (8) Atrial fibrillation Code(s): I48.91 - UNSPECIFIED ATRIAL FIBRILLATION (9) Anemia Recommendations: 1. Follow up X-Ray chest. 2. continue current cardiac therapy. 3. May need to consider addition of low dose beta prabhu if patient continue to have rapid ventricular response. Prognosis: Critical Attestation: Documentation prepared by Ba Moralez, acting as director of medical education for Irvin Khan MD.
--- NOTE | 2016-09-01 12:50 | PN ---
Progress Note (short form) - Note Progress Note: PULMONARY DNR/DNI MUCH MORE RESPONSIVE/ON BIPAP VSS DIALYSIS UNDERWAY PALE DISTANT B/L ANTERIOR BREATH SOUNDS S1S2 IRREGULAR ABD SOFT NO EDEMA LABS/MEDS/NOTES/IMAGING/ABG REVIEWED Altered Mental Status resolved Acute Hypercapneic Respiratory Failure/bipap ESRD on HD Acute on Chronic LV Diastolic Heart Failure Atrial Fibrillation RV Dysfunction Pleural Effusions Liver Cirrhosis Hepatic Encephalopathy/Elevated lactulose - Lactulose/rifaximin - BIPAP as tolerated - HD per renal - titrate FiO2 to keep SpO2 >90% - DVT/GI prophylaxis Kelby SOTO MD
[2016-09-01] MEDS: MUPIROCIN 2% TOPICAL OINTMENT 22 GM TUBE TP SCH ×2 (14:45→21:12)
[2016-09-01] MEDS: LACTULOSE 20 GM/30 ML UDC (FOR ORAL USE ONLY) PO SCH ×2 (14:51→21:12)
[2016-09-01] MEDS: RIFAXIMIN 550 MG TABLET (UD) PO SCH (14:52)
[2016-09-01] MEDS: HEPARIN NA (PORCINE) 5,000 UNITS/ML 1ML VIAL SQ SCH ×2 (14:52→21:44)
[2016-09-01] MEDS: ASPIRIN 81 MG CHEWABLE TABLETS PO SCH (14:52)
[2016-09-01] MEDS: MAGNESIUM CL 64 MG TABLET.SA PO SCH (14:55)
[2016-09-01] MEDS: VITAMIN B COMP W-C 1 EA TABLET PO SCH (14:55)
[2016-09-01] MEDS: LEVOTHYROXINE SODIUM 100 MCG VIAL IM SCH (14:56)
[2016-09-01] MEDS: PANTOPRAZOLE SODIUM 100 ML IVPB SCH ×2 (15:11→16:39)
[2016-09-01] MEDS: LIDOCAINE 5% TOPICAL PATCH TP SCH (15:12)
--- NOTE | 2016-09-01 17:04 | PN ---
Progress Note (short form) - Note Progress Note: seen this am just started HD -- Bp 77/45 on bipap awake alert responding to verbal stimuli / answering question appropriately Vital Signs Period Temp Pulse Resp BP Sys/Peck Pulse Ox Last 24 Hr 97.5 F-98.2 F 76-98 18-22 64-110/32-58 96-100 neck supple heart irregular lungs clear bilat anteriorly and laterally abd soft non tender ext mai edema CBC, BMP 09/01/16 09:40 09/01/16 09:40 Active Medications Acetaminophen (Tylenol -) 325 mg PO QID [facility] Last Admin: 09/01/16 14:52 Dose: 325 mg Aspirin (Asa -) 81 mg PO DAILY [facility] Last Admin: 09/01/16 14:52 Dose: 81 mg Ergocalciferol (Drisdol -) 50,000 unit PO We@1000 [facility] Heparin Sodium (Porcine) (Heparin -) 5,000 unit SQ BID [facility] Last Admin: 09/01/16 14:52 Dose: 5,000 unit Pantoprazole Sodium (Protonix 40mg Ivpb (Pre-Docked)) 100 mls @ 200 mls/hr IVPB DAILY [facility] Lactulose (Cephulac (Oral Use)) 10 gm PO BID [facility] Last Admin: 09/01/16 14:51 Dose: 10 gm Lactulose (Cephulac (Rectal Use)) 200 gm [place] Q6H PRN Last Admin: 08/30/16 15:49 Dose: 200 gm Levothyroxine Sodium (Synthroid Injection -) 55 mcg IM DAILY [facility] Last Admin: 09/01/16 14:56 Dose: 55 mcg Lidocaine (Lidoderm Patch -) 1 patch TP DAILY [facility] Last Admin: 09/01/16 15:12 Dose: 1 patch Magnesium Chloride (Slow-Mag -) 64 mg PO DAILY [facility] Last Admin: 09/01/16 14:55 Dose: 64 mg Midodrine (Proamatine -) 10 mg PO TID-MID [facility] Last Admin: 09/01/16 14:56 Dose: 10 mg Multivit/Ca Carb/B Cmplx/FA/Prenat (Nephro-Lexi -) 1 tablet PO DAILY [facility] Last Admin: 09/01/16 14:55 Dose: 1 tablet Mupirocin (Bactroban 2% Ointment -) 1 applic TP BID [facility] Last Admin: 09/01/16 14:45 Dose: Not Given Rifaximin (Xifaxan -) 550 mg PO DAILY [facility] Last Admin: 09/01/16 14:52 Dose: 550 mg Sevelamer Carbonate (Renvela -) 800 mg PO TIDCM [facility] Last Admin: 09/01/16 14:51 Dose: 800 mg significant clinical improvement mental status close to baseline Case discussed with HCP - Madeline Made aware of clinical improvement / and continued management patient has responded well and I feel inappropriate to terminate HD at this time -- she understands this will re-occur but agrees with continued treatment ( HD ) at this time - --- along with return to [facility] in the near future Problem List - Problems (1) Hypoxia Code(s): R09.02 - HYPOXEMIA (2) Fluid excess Code(s): E87.70 - FLUID OVERLOAD, UNSPECIFIED (3) Altered mental status Code(s): R41.82 - ALTERED MENTAL STATUS, UNSPECIFIED (4) Acute on chronic diastolic (congestive) heart failure Code(s): I50.33 - ACUTE ON CHRONIC DIASTOLIC (CONGESTIVE) HEART FAILURE (5) Liver cirrhosis Code(s): K74.60 - UNSPECIFIED CIRRHOSIS OF LIVER (6) Pleural effusion Code(s): J90 - PLEURAL EFFUSION, NOT ELSEWHERE CLASSIFIED (7) Altered awareness, transient Code(s): R40.4 - TRANSIENT ALTERATION OF AWARENESS (8) Atrial fibrillation Code(s): I48.91 - UNSPECIFIED ATRIAL FIBRILLATION (9) CHF (congestive heart failure) Code(s): I50.9 - HEART FAILURE, UNSPECIFIED Qualifiers: Qualified Code(s): I50.9 - Heart failure, unspecified (10) End stage renal disease on dialysis Code(s): N18.6 - END STAGE RENAL DISEASE Z99.2 - DEPENDENCE ON RENAL DIALYSIS (11) Hepatic encephalopathy Code(s): K72.90 - HEPATIC FAILURE, UNSPECIFIED WITHOUT COMA (12) Hypothyroidism Code(s): E03.9 - HYPOTHYROIDISM, UNSPECIFIED (13) Lethargy Code(s): R53.83 - OTHER FATIGUE
--- NOTE | 2016-09-01 18:15 | PN ---
Progress Note (short form) - Note Progress Note: Renal Follow up for ESRD on HD Pt seen and examined at the bedside earlier today with dialysis Bp low but stable. Goal UF is 2L. Pt is awake and alert on BIPAP Vital Signs Temperature 98.4 F 09/01/16 15:00 Pulse Rate 88 09/01/16 14:10 Respiratory Rate 22 09/01/16 14:10 Blood Pressure 75/48 09/01/16 15:00 O2 Sat by Pulse Oximetry (%) 96 09/01/16 09:00 Intake & Output 08/29/16 08/30/16 08/31/16 09/01/16 23:59 23:59 23:59 23:59 Intake Total 180 105 100 Output Total 0 Balance 180 105 100 Weight 133 lb 9.602 oz 136 lb 2 oz Gen: NAD on BIPAP CVS: RRR, No M/R Lungs: Dec BS throughout the lung mandujano Abd: soft NT/ND Ext: No edema, clubbing or cyanosis CBC, BMP 09/01/16 09:40 09/01/16 09:40 Current Medications Acetaminophen (Tylenol -) 325 mg PO QID [facility] Last Admin: 09/01/16 21:12 Dose: Not Given Aspirin (Asa -) 81 mg PO DAILY [facility] Last Admin: 09/01/16 14:52 Dose: 81 mg Ergocalciferol (Drisdol -) 50,000 unit PO We@1000 [facility] Heparin Sodium (Porcine) (Heparin -) 5,000 unit SQ BID [facility] Last Admin: 09/01/16 21:44 Dose: 5,000 unit Pantoprazole Sodium (Protonix 40mg Ivpb (Pre-Docked)) 100 mls @ 200 mls/hr IVPB DAILY [facility] Last Admin: 09/01/16 16:39 Dose: Not Given Lactulose (Cephulac (Oral Use)) 10 gm PO BID [facility] Last Admin: 09/01/16 21:12 Dose: Not Given Lactulose (Cephulac (Rectal Use)) 200 gm RI Q6H PRN Last Admin: 08/30/16 15:49 Dose: 200 gm Levothyroxine Sodium (Synthroid Injection -) 55 mcg IM DAILY [facility] Last Admin: 09/01/16 14:56 Dose: 55 mcg Lidocaine (Lidoderm Patch -) 1 patch TP DAILY [facility] Last Admin: 09/01/16 15:12 Dose: 1 patch Magnesium Chloride (Slow-Mag -) 64 mg PO DAILY [facility] Last Admin: 09/01/16 14:55 Dose: 64 mg Midodrine (Proamatine -) 10 mg PO TID-MID [facility] Last Admin: 09/01/16 18:40 Dose: Not Given Multivit/Ca Carb/B Cmplx/FA/Prenat (Nephro-Lexi -) 1 tablet PO DAILY [facility] Last Admin: 09/01/16 14:55 Dose: 1 tablet Mupirocin (Bactroban 2% Ointment -) 1 applic TP BID [facility] Last Admin: 09/01/16 21:12 Dose: Not Given Rifaximin (Xifaxan -) 550 mg PO DAILY [facility] Last Admin: 09/01/16 14:52 Dose: 550 mg Sevelamer Carbonate (Renvela -) 800 mg PO TIDCM [facility] Last Admin: 09/01/16 18:40 Dose: Not Given A/P This is a 86 year old Gentleman with PMhx of ESRD on HD (MWF), Chronic Cholecystitis, Dementia, DM, Hypertension, Afib with SOB and found to have extrensive pulmonary vascular congestion and hypoxia #ESRD with volume overload Tolerated HD with 2L UF volume status improved CXR shows less congestion Will reacess tomorrow for need for further UF #SOB/Hypoxia/Fluid over laod/CHF/AMS CXR and ABG improved Pulmonary following continue BIPAP as needed #Anemia Hgb at [facility]
--- NOTE | 2016-09-01 18:22 | PN ---
GI Progress Note Subjective: GASTROENTEROLOGY LESS RESPONSIVE TONIGHT, WAS RESPONSIVE TODAY ON BIPAP, AWAITING ULTRASOUND ORDERED - Objective Vital Signs: Vital Signs Temperature 98.4 F 09/01/16 15:00 Pulse Rate 88 09/01/16 14:10 Respiratory Rate 22 09/01/16 14:10 Blood Pressure 75/48 09/01/16 15:00 O2 Sat by Pulse Oximetry (%) 96 09/01/16 09:00 Constitutional: No Distress Eyes: Yes: Conjunctiva Clear HENT: Yes: Normocephalic Cardiovascular: Yes: Regular Rate and Rhythm Respiratory: Yes: Diminished Gastrointestinal Inspection: Yes: WNL ...Auscultate: Yes: Normoactive Bowel Sounds ...Palpate: Yes: Soft Extremities: Yes: WNL Labs: CBC, BMP 09/01/16 09:40 09/01/16 09:40 Laboratory Tests 08/31/16 09/01/16 09/01/16 06:10 05:35 09:40 WBC RBC Hgb Hct MCV MCHC RDW Plt Count Sodium 145 Potassium 3.6 Chloride 102 Carbon Dioxide 33 H Anion Gap 10 BUN 36 H D Creatinine 5.4 H D Total Bilirubin Pending GGT Pending AST Pending ALT Pending SANTILLAN Liver Fibrosis Pending Liver Fibrosis Score Pending Liver Fibrosis Stage Pending Ammonia 31.3 [id number] Pending Triglycerides Pending Cholesterol Pending Apolipoprotein A-1 Pending Patient Height (cm) Pending Patient Weight (kg) Pending 09/01/16 09:40 WBC 5.8 RBC 3.18 L Hgb 10.5 L Hct 33.8 L MCV 106.4 H MCHC 31.1 L RDW 19.7 H Plt Count 85 L Sodium Potassium Chloride Carbon Dioxide Anion Gap BUN Creatinine Total Bilirubin GGT AST ALT SANTILLAN Liver Fibrosis Liver Fibrosis Score Liver Fibrosis Stage Ammonia [id number] Triglycerides Cholesterol Apolipoprotein A-1 Patient Height (cm) Patient Weight (kg) Assessment/Plan Change in Mental status: As last in consultation, I do not believe that Brayan has advance hepatocelluar disease. The use of ammonia levels has been proven not to be helpful in the diagnosis or exclusion of hepatic encephalopathy (HE). Any systemic shunting or metabolic insult can cause an elevated ammonia. All prior imaging of his liver would not suggest liver disease. I have ordered another US. A liver biopsy would be the definitive test for the diagnosis. We could send of a fibrosure blood test I would continue to treat the CO2 retention and any suspected infection, correct acidosis and uremia. I would suggest a repeat neuro consult to rule out other causes of encephalopathy. If he does not respond to the above then lactulose/Xifaxim would be worth trying . awaiting labs and us abdomen.
[2016-09-01 19:10] LABS: ARTERIAL BLD GAS O2 SATURATION 97.1 % (90-98.9); ARTERIAL BLOOD GAS BASE EXCESS 5.2 meq/l (-2-2); ARTERIAL BLOOD GAS HCO3 31.4 meq/L (22-26); ARTERIAL BLOOD GAS PO2 87.8 mmHg (68-100); ARTERIAL BLOOD GAS pH 7.36 (7.35-7.45)
[2016-09-01 19:11] LABS: ALLENS TEST POSITIVE; ART PUNCT SITE LEFT BRACHIAL; LPM/O2% 40%; PT. ON O2? YES; TYPE OF O2 BIPAP
[2016-09-01 19:12] LABS: MECH. VENT. BIPAP; VENT RATE 22; VT/PRESS 15/5
[2016-09-02] MEDS: SEVELAMER CARBONATE 800 MG TAB (FP) PO SCH ×3 (08:46→17:16)
[2016-09-02] MEDS: MAGNESIUM CL 64 MG TABLET.SA PO SCH (09:06)
[2016-09-02] MEDS: PANTOPRAZOLE SODIUM 100 ML IVPB SCH (09:06)
[2016-09-02] MEDS: VITAMIN B COMP W-C 1 EA TABLET PO SCH (09:07)
[2016-09-02] MEDS: LIDOCAINE 5% TOPICAL PATCH TP SCH (09:07)
[2016-09-02] MEDS: MIDODRINE HCL 5 MG TABLET PO SCH ×4 (09:07→17:16)
[2016-09-02] MEDS: ASPIRIN 81 MG CHEWABLE TABLETS PO SCH (09:08)
[2016-09-02] MEDS: LACTULOSE 20 GM/30 ML UDC (FOR ORAL USE ONLY) PO SCH ×2 (09:08→22:15)
[2016-09-02] MEDS: MUPIROCIN 2% TOPICAL OINTMENT 22 GM TUBE TP SCH ×2 (09:08→22:14)
[2016-09-02] MEDS: HEPARIN NA (PORCINE) 5,000 UNITS/ML 1ML VIAL SQ SCH ×2 (09:08→22:14)
[2016-09-02] MEDS: RIFAXIMIN 550 MG TABLET (UD) PO SCH (09:09)
[2016-09-02] MEDS: ACETAMINOPHEN 325 MG TABLET (FP) PO SCH ×5 (09:09→22:14)
[2016-09-02] MEDS: LEVOTHYROXINE SODIUM 100 MCG VIAL IM SCH (09:18)
--- NOTE | 2016-09-02 11:36 | PN ---
Progress Note (short form) - Note Progress Note: Chief Complaint: Events noted, notes reviewed. Dyspnea persists on BiPaP, in no acute distress History of Present Illness: Seen and examined on telemetry. Events noted, notes reviewed. Dyspnea persists on BiPaP, in no acute distress Echocardiography dated 08/28/16 revealed RV dilatation with moderate to severe reduced RV function, LVH with normal LV size and function, severe TR with RVSP of 17 mmHg ???, moderate MR Medications: Current Medications Acetaminophen (Tylenol -) 325 mg PO QID [facility] Last Admin: 09/02/16 09:09 Dose: Not Given Aspirin (Asa -) 81 mg PO DAILY [facility] Last Admin: 09/02/16 09:08 Dose: Not Given Ergocalciferol (Drisdol -) 50,000 unit PO We@1000 [facility] Heparin Sodium (Porcine) (Heparin -) 5,000 unit SQ BID [facility] Last Admin: 09/02/16 09:08 Dose: 5,000 unit Pantoprazole Sodium (Protonix 40mg Ivpb (Pre-Docked)) 100 mls @ 200 mls/hr IVPB DAILY [facility] Last Admin: 09/02/16 09:06 Dose: 200 mls/hr Lactulose (Cephulac (Oral Use)) 10 gm PO BID [facility] Last Admin: 09/02/16 09:08 Dose: Not Given Lactulose (Cephulac (Rectal Use)) 200 gm [place] Q6H PRN Last Admin: 08/30/16 15:49 Dose: 200 gm Levothyroxine Sodium (Synthroid Injection -) 55 mcg IM DAILY [facility] Last Admin: 09/02/16 09:18 Dose: 55 mcg Lidocaine (Lidoderm Patch -) 1 patch TP DAILY [facility] Last Admin: 09/02/16 09:07 Dose: 1 patch Magnesium Chloride (Slow-Mag -) 64 mg PO DAILY [facility] Last Admin: 09/02/16 09:06 Dose: Not Given Midodrine (Proamatine -) 10 mg PO TID-MID [facility] Last Admin: 09/02/16 09:07 Dose: Not Given Multivit/Ca Carb/B Cmplx/FA/Prenat (Nephro-Lexi -) 1 tablet PO DAILY [facility] Last Admin: 09/02/16 09:07 Dose: Not Given Mupirocin (Bactroban 2% Ointment -) 1 applic TP BID [facility] Last Admin: 09/02/16 09:08 Dose: Not Given Rifaximin (Xifaxan -) 550 mg PO DAILY [facility] Last Admin: 09/02/16 09:09 Dose: Not Given Sevelamer Carbonate (Renvela -) 800 mg PO TIDCM [facility] Last Admin: 09/02/16 08:46 Dose: Not Given Review of Systems - Review of Systems Constitutional: denies: Chills, Fever Cardiovascular: As noted above Respiratory: denies: Cough or Sputum Production Gastrointestinal: denies: Nausea, Vomiting, Diarrhea, Constipation or Abdominal Pain Neurological: No Symptoms Reported Vital Signs: Last Vital Signs Temp Pulse Resp BP Pulse Ox 98 F 92 H 24 72/40 98 09/02/16 08:00 09/02/16 11:36 09/02/16 11:36 09/02/16 11:36 09/02/16 08:00 Constitutional: No Distress, Calm, Thin Neck: Supple Positive JVD No Bruit Respiratory: Diminished Breath Sounds Bilaterally wit Scattered Rhonchi Cardiovascular: S1 S2 Irregularly Irregular Grade 2/6 SM Gastrointestinal: Soft Benign Normal Bowel Sounds Ext: No Edema Labs: CBC, BMP 09/01/16 09:40 09/01/16 09:40 Hepatic Panel Total Bilirubin 0.8 mg/dL (0.2-1.0) 08/28/16 05:00 AST 22 U/L (15-37) D 08/28/16 05:00 ALT 19 U/L (12-78) D 08/28/16 05:00 Alkaline Phosphatase 135 U/L (45-117) H D 08/28/16 05:00 Albumin 3.8 g/dl (3.4-5.0) 08/28/16 05:00 ASSESSMENT/PLAN: ASSESSMENT: 1. Acute hypercapneic respiratory failure 2. Acute on Chronic LV Diastolic failure class III NYHA clasification LV failure , resolving 3. 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 Persistent atrial fibrillation [id number] score of 3 on no A/C 5. Hypothyroidism 6. ESLD with Hepatic Encephalopathy 7. ESRD on HD PLAN: 1. Volume removal via HD as per renal service 2. Continue Midodrine as hemodynamics require 3. Not an ideal A/C candidate related to to the above noted ESLD (End Stage Liver Disease) 4. Supplemental O2 via BiPaP Saulat Cortez MD
--- NOTE | 2016-09-02 12:34 | PN ---
Progress Note (short form) - Note Progress Note: Renal Follow up for ESRD on HD Pt seen and examined at the bedside overnight events noted -> had resp distress overnight and there is concern for aspiration made NPO currently laying in bed off bipap and comfortable no acute complaints Vital Signs Temperature 98 F 09/02/16 08:00 Pulse Rate 92 H 09/02/16 11:36 Respiratory Rate 24 09/02/16 11:36 Blood Pressure 72/40 09/02/16 11:36 O2 Sat by Pulse Oximetry (%) 98 09/02/16 08:00 Intake & Output 08/30/16 08/31/16 09/01/16 09/02/16 23:59 23:59 23:59 23:59 Intake Total 105 100 10 Balance 105 100 10 Weight 136 lb 2 oz Gen: NAD on BIPAP CVS: RRR, No M/R Lungs: Dec BS throughout the lung mandujano Abd: soft NT/ND Ext: No edema, clubbing or cyanosis CBC, BMP 09/01/16 09:40 09/01/16 09:40 Current Medications Acetaminophen (Tylenol -) 325 mg PO QID [facility] Last Admin: 09/02/16 12:25 Dose: 325 mg Aspirin (Asa -) 81 mg PO DAILY [facility] Last Admin: 09/02/16 09:08 Dose: Not Given Ergocalciferol (Drisdol -) 50,000 unit PO We@1000 [facility] Heparin Sodium (Porcine) (Heparin -) 5,000 unit SQ BID [facility] Last Admin: 09/02/16 09:08 Dose: 5,000 unit Pantoprazole Sodium (Protonix 40mg Ivpb (Pre-Docked)) 100 mls @ 200 mls/hr IVPB DAILY [facility] Last Admin: 09/02/16 09:06 Dose: 200 mls/hr Lactulose (Cephulac (Oral Use)) 10 gm PO BID [facility] Last Admin: 09/02/16 09:08 Dose: Not Given Lactulose (Cephulac (Rectal Use)) 200 gm [place] Q6H PRN Last Admin: 08/30/16 15:49 Dose: 200 gm Levothyroxine Sodium (Synthroid Injection -) 55 mcg IM DAILY [facility] Last Admin: 09/02/16 09:18 Dose: 55 mcg Lidocaine (Lidoderm Patch -) 1 patch TP DAILY [facility] Last Admin: 09/02/16 09:07 Dose: 1 patch Magnesium Chloride (Slow-Mag -) 64 mg PO DAILY [facility] Last Admin: 09/02/16 09:06 Dose: Not Given Midodrine (Proamatine -) 10 mg PO TID-MID [facility] Last Admin: 09/02/16 12:23 Dose: 10 mg Multivit/Ca Carb/B Cmplx/FA/Prenat (Nephro-Lexi -) 1 tablet PO DAILY [facility] Last Admin: 09/02/16 09:07 Dose: Not Given Mupirocin (Bactroban 2% Ointment -) 1 applic TP BID [facility] Last Admin: 09/02/16 09:08 Dose: Not Given Rifaximin (Xifaxan -) 550 mg PO DAILY [facility] Last Admin: 09/02/16 09:09 Dose: Not Given Sevelamer Carbonate (Renvela -) 800 mg PO TIDCM [facility] Last Admin: 09/02/16 12:26 Dose: Not Given A/P This is a 86 year old Gentleman with PMhx of ESRD on HD (MWF), Chronic Cholecystitis, Dementia, DM, Hypertension, Afib with SOB and found to have extrensive pulmonary vascular congestion and hypoxia #ESRD with volume overload s/p HD with HF yesterday BP is very low today (did not get midodrine because of NPO status) pt will not be able to tolerate HD or UF today given how low bp is at this time restart midodrine CXR and abg show improvement will monitor resp status closely pt NPO so unlikely to gain large volume #SOB/Hypoxia/Fluid over laod/CHF/AMS CXR and ABG improved Pulmonary following continue BIPAP as needed Rifaxamin/Lactulose as per GI #Anemia Hgb at [facility] Steve LUND
--- NOTE | 2016-09-02 14:59 | PN ---
Progress Note (short form) - Note Progress Note: PULMONARY DNR/DNI VSS PALE DISTANT B/L ANTERIOR BREATH SOUNDS S1S2 IRREGULAR ABD SOFT NO EDEMA LABS/MEDS/NOTES/IMAGING/ABG REVIEWED Altered Mental Status resolved Acute Hypercapneic Respiratory Failure/bipap PRN ESRD on HD Acute on Chronic LV Diastolic Heart Failure Atrial Fibrillation RV Dysfunction Pleural Effusions Liver Cirrhosis Hepatic Encephalopathy/Elevated lactulose - Lactulose/rifaximin - BIPAP as tolerated - HD per renal - titrate FiO2 to keep SpO2 >90% - DVT/GI prophylaxis Kelby SOTO MD
[2016-09-03 08:05] LABS: CALCIUM 9.6 mg/dL (8.5-10.1); CREATININE 5.6 mg/dL (0.7-1.3)
[2016-09-03] MEDS: MAGNESIUM CL 64 MG TABLET.SA PO SCH (09:50)
[2016-09-03] MEDS: SEVELAMER CARBONATE 800 MG TAB (FP) PO SCH ×3 (09:50→16:56)
[2016-09-03] MEDS: ASPIRIN 81 MG CHEWABLE TABLETS PO SCH (09:50)
[2016-09-03] MEDS: VITAMIN B COMP W-C 1 EA TABLET PO SCH (09:50)
[2016-09-03] MEDS: LACTULOSE 20 GM/30 ML UDC (FOR ORAL USE ONLY) PO SCH ×2 (09:50→21:11)
[2016-09-03] MEDS: MIDODRINE HCL 5 MG TABLET PO SCH ×3 (09:50→17:03)
[2016-09-03] MEDS: MUPIROCIN 2% TOPICAL OINTMENT 22 GM TUBE TP SCH ×2 (09:51→21:10)
[2016-09-03] MEDS: RIFAXIMIN 550 MG TABLET (UD) PO SCH (09:51)
[2016-09-03] MEDS: ACETAMINOPHEN 325 MG TABLET (FP) PO SCH ×4 (09:51→21:10)
[2016-09-03] MEDS: PANTOPRAZOLE SODIUM 100 ML IVPB SCH (09:52)
--- NOTE | 2016-09-03 10:42 | PN ---
Progress Note (short form) - Note Progress Note: Chief Complaint: Events noted, notes reviewed. Dyspnea persists remains on BiPaP , denies any chest pain History of Present Illness: Seen and examined on telemetry. Events noted, notes reviewed. Dyspnea persists remains on BiPaP, denies any chest pain Echocardiography dated 08/28/16 revealed RV dilatation with moderate to severe reduced RV function, LVH with normal LV size and function, severe TR with RVSP of 17 mmHg ???, moderate MR Medications: Current Medications Acetaminophen (Tylenol -) 325 mg PO QID [facility] Last Admin: 09/03/16 09:51 Dose: Not Given Aspirin (Asa -) 81 mg PO DAILY [facility] Last Admin: 09/03/16 09:50 Dose: Not Given Ergocalciferol (Drisdol -) 50,000 unit PO We@1000 [facility] Heparin Sodium (Porcine) (Heparin -) 5,000 unit SQ BID [facility] Last Admin: 09/02/16 22:14 Dose: 5,000 unit Pantoprazole Sodium (Protonix 40mg Ivpb (Pre-Docked)) 100 mls @ 200 mls/hr IVPB DAILY [facility] Last Admin: 09/03/16 09:52 Dose: 200 mls/hr Lactulose (Cephulac (Oral Use)) 10 gm PO BID [facility] Last Admin: 09/03/16 09:50 Dose: Not Given Lactulose (Cephulac (Rectal Use)) 200 gm [place] Q6H PRN Last Admin: 08/30/16 15:49 Dose: 200 gm Levothyroxine Sodium (Synthroid Injection -) 55 mcg IM DAILY [facility] Last Admin: 09/02/16 09:18 Dose: 55 mcg Lidocaine (Lidoderm Patch -) 1 patch TP DAILY [facility] Last Admin: 09/02/16 09:07 Dose: 1 patch Magnesium Chloride (Slow-Mag -) 64 mg PO DAILY [facility] Last Admin: 09/03/16 09:50 Dose: Not Given Midodrine (Proamatine -) 10 mg PO TID-MID [facility] Last Admin: 09/03/16 09:50 Dose: Not Given Multivit/Ca Carb/B Cmplx/FA/Prenat (Nephro-Lexi -) 1 tablet PO DAILY [facility] Last Admin: 09/03/16 09:50 Dose: Not Given Mupirocin (Bactroban 2% Ointment -) 1 applic TP BID [facility] Last Admin: 09/03/16 09:51 Dose: Not Given Rifaximin (Xifaxan -) 550 mg PO DAILY [facility] Last Admin: 09/03/16 09:51 Dose: Not Given Sevelamer Carbonate (Renvela -) 800 mg PO TIDCM [facility] Last Admin: 09/03/16 09:50 Dose: Not Given Review of Systems - Review of Systems Constitutional: denies: Chills, Fever Cardiovascular: As noted above Respiratory: denies: Cough or Sputum Production Gastrointestinal: denies: Nausea, Vomiting, Diarrhea, Constipation or Abdominal Pain Neurological: No Symptoms Reported Vital Signs: Last Vital Signs Temp Pulse Resp BP Pulse Ox 98.1 F 99 H 24 82/41 98 09/03/16 08:07 09/03/16 08:07 09/03/16 08:07 09/03/16 08:07 09/03/16 08:21 Constitutional: No Distress, Calm, Thin Neck: Supple Negative JVD No Bruit Respiratory: Diminished Breath Sounds Bilaterally with Bilateral Scattered Rhonchi Cardiovascular: S1 S2 Irregularly Irregular Grade 2/6 SM Gastrointestinal: Soft Benign Normal Bowel Sounds Ext: No Edema Labs: CBC, BMP 09/01/16 09:40 09/03/16 05:35 ASSESSMENT/PLAN: ASSESSMENT: 1. Acute hypercapneic respiratory failure 2. Acute on Chronic LV Diastolic failure class III NYHA clasification LV failure , resolving 3. 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 Persistent atrial fibrillation [id number] score of 3 on no A/C 5. Hypothyroidism 6. ESLD with Hepatic Encephalopathy 7. ESRD on HD PLAN: 1. Volume removal via HD as per renal service 2. Continue Midodrine as hemodynamics require 3. Not an ideal A/C candidate related to to the above noted ESLD (End Stage Liver Disease) 4. Supplemental O2 via BiPaP Overall poor prognosis Esdras Toro MD
[2016-09-03] MEDS: HEPARIN NA (PORCINE) 5,000 UNITS/ML 1ML VIAL SQ SCH ×2 (12:14→21:10)
[2016-09-03] MEDS: LIDOCAINE 5% TOPICAL PATCH TP SCH (12:19)
--- NOTE | 2016-09-03 12:36 | PN ---
Progress Note (short form) - Note Progress Note: PULMONARY DNR/DNI VSS PALE DISTANT B/L ANTERIOR BREATH SOUNDS S1S2 IRREGULAR ABD SOFT NO EDEMA LABS/MEDS/NOTES/IMAGING/ABG REVIEWED Altered Mental Status resolved Acute Hypercapneic Respiratory Failure/bipap PRN ESRD on HD Acute on Chronic LV Diastolic Heart Failure Atrial Fibrillation RV Dysfunction Pleural Effusions Liver Cirrhosis Hepatic Encephalopathy/Elevated lactulose - Lactulose/rifaximin - BIPAP as tolerated - HD per renal - titrate FiO2 to keep SpO2 >90% - DVT/GI prophylaxis - Abd US as per GI Kelby SOTO MD
[2016-09-03] MEDS: LEVOTHYROXINE SODIUM 100 MCG VIAL IM SCH (15:16)
--- NOTE | 2016-09-03 15:21 | PN ---
GI Progress Note Subjective: GASTROENTEROLOGY FOUND SLEEPING BUT AWAKES VERY EASILY BY CALLING HIS NAME, HE ANSWERS QUESTIONS APPROPRIATELY - Objective Vital Signs: Vital Signs Temperature 98.1 F 09/03/16 08:07 Pulse Rate 103 H 09/03/16 14:00 Respiratory Rate 21 09/03/16 14:00 Blood Pressure 75/40 09/03/16 14:00 O2 Sat by Pulse Oximetry (%) 98 09/03/16 08:21 Constitutional: No Distress HENT: Yes: Normocephalic Cardiovascular: Yes: WNL Respiratory: Yes: Diminished ...Auscultate: Yes: Normoactive Bowel Sounds ...Palpate: Yes: Soft Extremities: Yes: WNL Labs: CBC, BMP 09/01/16 09:40 09/03/16 05:35 Assessment/Plan Change in Mental status: As last in consultation, I do not believe that Brayan has advance hepatocelluar disease. The use of ammonia levels has been proven not to be helpful in the diagnosis or exclusion of hepatic encephalopathy (HE). Any systemic shunting or metabolic insult can cause an elevated ammonia. All prior imaging of his liver would not suggest liver disease. I have ordered another US. A liver biopsy would be the definitive test for the diagnosis. We are waiting on the results of the fibrosure test. US done today and we are waitng for the read on this too! I would continue to treat the CO2 retention and any suspected infection, correct acidosis and uremia. I would suggest a repeat neuro consult to rule out other causes of encephalopathy. If he does not respond to the above then lactulose/Xifaxim would be worth trying.
--- NOTE | 2016-09-03 21:26 | PN ---
Progress Note (short form) - Note Progress Note: awake and alert able to answer question moist cough O2 via N/C sats @96% Spoke to Madeline regarding echymotic area at base of nose - 2ary to Bipap also concers about NPO / since possible aspiration sunday Discussed plans for swallow eval in am - /HD / increase PT for ADLs with plans to return to [facility] Vital Signs Period Temp Pulse Resp BP Sys/Peck Pulse Ox Last 24 Hr 97.2 F-98.2 F 82-103 21-24 72-112/40-52 98-99 neck supple heart irreg lungs grossly clear abd soft non tender ext no edema CBC, BMP 09/01/16 09:40 09/03/16 05:35 Active Medications Acetaminophen (Tylenol -) 325 mg PO QID [facility] Last Admin: 09/03/16 21:10 Dose: Not Given Aspirin (Asa -) 81 mg PO DAILY [facility] Last Admin: 09/03/16 09:50 Dose: Not Given Ergocalciferol (Drisdol -) 50,000 unit PO We@1000 [facility] Heparin Sodium (Porcine) (Heparin -) 5,000 unit SQ BID [facility] Last Admin: 09/03/16 21:10 Dose: 5,000 unit Pantoprazole Sodium (Protonix 40mg Ivpb (Pre-Docked)) 100 mls @ 200 mls/hr IVPB DAILY [facility] Last Admin: 09/03/16 09:52 Dose: 200 mls/hr Lactulose (Cephulac (Oral Use)) 10 gm PO BID [facility] Last Admin: 09/03/16 21:11 Dose: Not Given Lactulose (Cephulac (Rectal Use)) 200 gm [place] Q6H PRN Last Admin: 08/30/16 15:49 Dose: 200 gm Levothyroxine Sodium (Synthroid Injection -) 55 mcg IM DAILY [facility] Last Admin: 09/03/16 15:16 Dose: 55 mcg Lidocaine (Lidoderm Patch -) 1 patch TP DAILY [facility] Last Admin: 09/03/16 12:19 Dose: 1 patch Magnesium Chloride (Slow-Mag -) 64 mg PO DAILY [facility] Last Admin: 09/03/16 09:50 Dose: Not Given Midodrine (Proamatine -) 10 mg PO TID-MID [facility] Last Admin: 09/03/16 17:03 Dose: Not Given Multivit/Ca Carb/B Cmplx/FA/Prenat (Nephro-Lexi -) 1 tablet PO DAILY [facility] Last Admin: 09/03/16 09:50 Dose: Not Given Mupirocin (Bactroban 2% Ointment -) 1 applic TP BID [facility] Last Admin: 09/03/16 21:10 Dose: Not Given Rifaximin (Xifaxan -) 550 mg PO DAILY [facility] Last Admin: 09/03/16 09:51 Dose: Not Given Sevelamer Carbonate (Renvela -) 800 mg PO TIDCM [facility] Last Admin: 09/03/16 16:56 Dose: Not Given Problem List - Problems (1) Hypoxia Code(s): R09.02 - HYPOXEMIA (2) Fluid excess Assessment/Plan: slow removal via aggressive HD scheduled for HD in am Code(s): E87.70 - FLUID OVERLOAD, UNSPECIFIED (3) Acute on chronic diastolic (congestive) heart failure Code(s): I50.33 - ACUTE ON CHRONIC DIASTOLIC (CONGESTIVE) HEART FAILURE (4) Liver cirrhosis Code(s): K74.60 - UNSPECIFIED CIRRHOSIS OF LIVER (5) Pleural effusion Code(s): J90 - PLEURAL EFFUSION, NOT ELSEWHERE CLASSIFIED (6) Altered mental status Assessment/Plan: multifactorial much improved to date Code(s): R41.82 - ALTERED MENTAL STATUS, UNSPECIFIED (7) CHF (congestive heart failure) Code(s): I50.9 - HEART FAILURE, UNSPECIFIED Qualifiers: Qualified Code(s): I50.9 - Heart failure, unspecified (8) Altered awareness, transient Code(s): R40.4 - TRANSIENT ALTERATION OF AWARENESS (9) Atrial fibrillation Code(s): I48.91 - UNSPECIFIED ATRIAL FIBRILLATION (10) End stage renal disease on dialysis Code(s): N18.6 - END STAGE RENAL DISEASE Z99.2 - DEPENDENCE ON RENAL DIALYSIS (11) Hepatic encephalopathy Code(s): K72.90 - HEPATIC FAILURE, UNSPECIFIED WITHOUT COMA (12) Hypothyroidism Code(s): E03.9 - HYPOTHYROIDISM, UNSPECIFIED (13) Lethargy Code(s): R53.83 - OTHER FATIGUE
[2016-09-04 07:32] LABS: BASOPHIL 0.1 % (0-2.0); EOSINOPHIL 0.2 % (0-4.5); MCH 33.6 pg (25.7-33.7); MCHC 31.9 g/dl (32.0-35.9); MEAN CELL VOLUME 105.1 fl (80-96); MEAN PLT VOLUME 10.2 fl (7.5-11.1); NEUTROPHILS 77.8 % (42.8-82.8); PLATELET COUNT 92 K/MM3 (134-434); RDW 19.6 % (11.9-15.9); WHITE BLOOD COUNT 9.5 K/mm3 (4.0-10.0)
[2016-09-04 08:13] LABS: CREATININE 7.7 mg/dL (0.7-1.3)
[2016-09-04 09:02] LABS: ANISOCYTOSIS 1+; HYPOCHROMIA 1+
[2016-09-04 09:03] LABS: TARGET CELLS 1+
[2016-09-04] MEDS: SEVELAMER CARBONATE 800 MG TAB (FP) PO SCH ×3 (09:20→17:52)
[2016-09-04] MEDS: LIDOCAINE 5% TOPICAL PATCH TP SCH (09:40)
[2016-09-04] MEDS: PANTOPRAZOLE SODIUM 100 ML IVPB SCH (09:40)
[2016-09-04] MEDS: HEPARIN NA (PORCINE) 5,000 UNITS/ML 1ML VIAL SQ SCH ×2 (09:41→22:48)
[2016-09-04] MEDS: ASPIRIN 81 MG CHEWABLE TABLETS PO SCH (09:51)
[2016-09-04] MEDS: ACETAMINOPHEN 325 MG TABLET (FP) PO SCH ×4 (09:51→22:47)
[2016-09-04] MEDS: LACTULOSE 20 GM/30 ML UDC (FOR ORAL USE ONLY) PO SCH ×2 (09:52→22:48)
[2016-09-04] MEDS: MUPIROCIN 2% TOPICAL OINTMENT 22 GM TUBE TP SCH ×2 (09:52→22:48)
[2016-09-04] MEDS: MIDODRINE HCL 5 MG TABLET PO SCH ×3 (09:52→18:45)
[2016-09-04] MEDS: MAGNESIUM CL 64 MG TABLET.SA PO SCH (09:52)
[2016-09-04] MEDS: VITAMIN B COMP W-C 1 EA TABLET PO SCH (09:52)
[2016-09-04] MEDS: RIFAXIMIN 550 MG TABLET (UD) PO SCH (09:54)
[2016-09-04] MEDS: ALBUMIN HUMAN 25% 50 ML VIAL IVPB SCH ×4 (10:45→12:15)
--- NOTE | 2016-09-04 10:56 | PN ---
Progress Note, Physician History of Present Illness: pulmonary awake,comfortable -resp distress,hypotensive. - Current Medication List Current Medications: Active Medications Acetaminophen (Tylenol -) 325 mg PO QID [facility] Last Admin: 09/04/16 09:51 Dose: Not Given Albumin Human (Albuminar-25) 12.5 gm IVPB Q30M [facility] Stop: 09/04/16 11:46 Aspirin (Asa -) 81 mg PO DAILY [facility] Last Admin: 09/04/16 09:51 Dose: Not Given Ergocalciferol (Drisdol -) 50,000 unit PO We@1000 [facility] Heparin Sodium (Porcine) (Heparin -) 5,000 unit SQ BID [facility] Last Admin: 09/04/16 09:41 Dose: 5,000 unit Pantoprazole Sodium (Protonix 40mg Ivpb (Pre-Docked)) 100 mls @ 200 mls/hr IVPB DAILY [facility] Last Admin: 09/04/16 09:40 Dose: 200 mls/hr Lactulose (Cephulac (Oral Use)) 10 gm PO BID [facility] Last Admin: 09/04/16 09:52 Dose: Not Given Lactulose (Cephulac (Rectal Use)) 200 gm [place] Q6H PRN Last Admin: 08/30/16 15:49 Dose: 200 gm Levothyroxine Sodium (Synthroid Injection -) 55 mcg IM DAILY [facility] Last Admin: 09/03/16 15:16 Dose: 55 mcg Lidocaine (Lidoderm Patch -) 1 patch TP DAILY [facility] Last Admin: 09/04/16 09:40 Dose: 1 patch Magnesium Chloride (Slow-Mag -) 64 mg PO DAILY [facility] Last Admin: 09/04/16 09:52 Dose: Not Given Midodrine (Proamatine -) 10 mg PO TID-MID [facility] Last Admin: 09/04/16 09:52 Dose: Not Given Multivit/Ca Carb/B Cmplx/FA/Prenat (Nephro-Lexi -) 1 tablet PO DAILY [facility] Last Admin: 09/04/16 09:52 Dose: Not Given Mupirocin (Bactroban 2% Ointment -) 1 applic TP BID [facility] Last Admin: 09/04/16 09:52 Dose: Not Given Rifaximin (Xifaxan -) 550 mg PO DAILY [facility] Last Admin: 09/04/16 09:54 Dose: Not Given Sevelamer Carbonate (Renvela -) 800 mg PO TIDCM [facility] Last Admin: 09/04/16 09:20 Dose: Not Given - Objective Vital Signs: Vital Signs Temperature 97 F L 09/04/16 09:01 Pulse Rate 90 09/04/16 09:01 Respiratory Rate 20 09/04/16 09:01 Blood Pressure 74/56 09/04/16 09:01 O2 Sat by Pulse Oximetry (%) 98 09/03/16 21:50 Constitutional: Yes: Well Nourished, Calm Eyes: Yes: WNL, Other Neck: Yes: WNL Cardiovascular: Yes: Pulse Irregular, S1, S2 Respiratory: Yes: Rhonchi Gastrointestinal: Yes: Normal Bowel Sounds, Soft Extremities: Yes: WNL Edema: No Labs: CBC, BMP 09/04/16 05:35 09/04/16 05:35 Assessment/Plan Altered Mental Status resolved Acute Hypercapneic Respiratory Failure/bipap PRN ESRD on HD Acute on Chronic LV Diastolic Heart Failure Atrial Fibrillation RV Dysfunction Pleural Effusions Liver Cirrhosis Hepatic Encephalopathy/Elevated lactulose - Lactulose/rifaximin - BIPAP PRN - HD per renal - FiO2 to keep SpO2 >90% - DVT/GI prophylaxis DR HAGER
--- NOTE | 2016-09-04 11:45 | PN ---
Progress Note, [employer] - Note Progress Note: Only on 3 liter o2 now. Has been NPO since 09/01. Selected Entries 09/01/16 09/01/16 09/01/16 15:07 20:10 21:54 Breakfast Lunch 50% 50% 50% Supper NPO NPO Temperature 09/01/16 09/02/16 09/02/16 23:00 01:52 05:00 Breakfast Lunch 50% Supper NPO Temperature 98.0 F 97.9 F 09/02/16 09/02/16 09/02/16 08:00 18:00 19:23 Breakfast 0 Lunch Supper NPO Temperature 98 F 97.7 F 09/02/16 09/02/16 09/03/16 19:50 22:00 01:51 Breakfast Lunch Supper NPO Temperature 98.2 F 97.2 F L 09/03/16 09/03/16 09/03/16 06:00 08:07 14:00 Breakfast NPO Lunch NPO Supper Temperature 97.5 F L 98.1 F 09/03/16 09/03/16 09/03/16 18:00 18:59 22:00 Breakfast Lunch Supper NPO NPO Temperature 98.0 F 98.2 F 09/04/16 09/04/16 09/04/16 02:00 06:00 09:01 Breakfast Lunch Supper Temperature 97.0 F L 97.8 F 97 F L Laboratory Tests 09/01/16 09/04/16 09:40 05:35 WBC 5.8 9.5 D CXR unchanged, per radiological report. Pt receiving HD. Swallow function assessed. Delayed swallow with overt tolerance with puree. Reviewed case with [place] pt's HCP. HCP reports that pt has coughed on thin liquids intermittently premorbidly. REC: Dysphagia puree and nectar thick liquid on a tsp. Magic cup HOB elevated. Remind pt to swallow with each bite. Monitor tolerance MBS tomorrow, pending MD orders.
--- NOTE | 2016-09-04 12:37 | PN ---
Progress Note, Physician Chief Complaint: Currently being dialyzed and tolerating except for low BP History of Present Illness: Patient was seen and examined. Awake and alert. Chart was reviewed Denies chest pain, SOB or palpitations Echocardiography dated 08/28/16 revealed RV dilatation with moderate to severe reduced RV function, LVH with normal LV size and function, severe TR, moderate MR - Current Medication List Current Medications: Active Medications Acetaminophen (Tylenol -) 325 mg PO QID [facility] Last Admin: 09/04/16 09:51 Dose: Not Given Aspirin (Asa -) 81 mg PO DAILY [facility] Last Admin: 09/04/16 09:51 Dose: Not Given Ergocalciferol (Drisdol -) 50,000 unit PO We@1000 DAVIS Heparin Sodium (Porcine) (Heparin -) 5,000 unit SQ BID [facility] Last Admin: 09/04/16 09:41 Dose: 5,000 unit Pantoprazole Sodium (Protonix 40mg Ivpb (Pre-Docked)) 100 mls @ 200 mls/hr IVPB DAILY [facility] Last Admin: 09/04/16 09:40 Dose: 200 mls/hr Lactulose (Cephulac (Oral Use)) 10 gm PO BID [facility] Last Admin: 09/04/16 09:52 Dose: Not Given Lactulose (Cephulac (Rectal Use)) 200 gm [place] Q6H PRN Last Admin: 08/30/16 15:49 Dose: 200 gm Levothyroxine Sodium (Synthroid Injection -) 55 mcg IM DAILY [facility] Last Admin: 09/03/16 15:16 Dose: 55 mcg Lidocaine (Lidoderm Patch -) 1 patch TP DAILY [facility] Last Admin: 09/04/16 09:40 Dose: 1 patch Magnesium Chloride (Slow-Mag -) 64 mg PO DAILY [facility] Last Admin: 09/04/16 09:52 Dose: Not Given Midodrine (Proamatine -) 10 mg PO TID-MID [facility] Last Admin: 09/04/16 09:52 Dose: Not Given Multivit/Ca Carb/B Cmplx/FA/Prenat (Nephro-Lexi -) 1 tablet PO DAILY [facility] Last Admin: 09/04/16 09:52 Dose: Not Given Mupirocin (Bactroban 2% Ointment -) 1 applic TP BID [facility] Last Admin: 09/04/16 09:52 Dose: Not Given Rifaximin (Xifaxan -) 550 mg PO DAILY [facility] Last Admin: 09/04/16 09:54 Dose: Not Given Sevelamer Carbonate (Renvela -) 800 mg PO TIDCM [facility] Last Admin: 09/04/16 09:20 Dose: Not Given - Objective Vital Signs: Vital Signs Temperature 97 F L 09/04/16 09:01 Pulse Rate 89 09/04/16 10:20 Respiratory Rate 20 09/04/16 09:01 Blood Pressure 74/56 09/04/16 09:01 O2 Sat by Pulse Oximetry (%) 98 09/04/16 10:25 Neck: Yes: Supple Cardiovascular: Yes: Pulse Irregular, Murmur (2/6 SM), S1, S2 Respiratory: Yes: Diminished Gastrointestinal: Yes: Normal Bowel Sounds, Soft. No: Tenderness Edema: No Additional Findings/Remarks: - Review of Systems Constitutional: denies: Chills, Fever Cardiovascular: As noted above Respiratory: denies: Cough or Sputum Production Gastrointestinal: denies: Nausea, Vomiting, Diarrhea, Constipation or Abdominal Pain Neurological: No Symptoms Reported Labs: CBC, BMP 09/04/16 05:35 09/04/16 05:35 Assessment/Plan - Problems (1) Acute hypercapnic respiratory failure Code(s): J96.02 - ACUTE RESPIRATORY FAILURE WITH HYPERCAPNIA (2) Altered mental status Code(s): R41.82 - ALTERED MENTAL STATUS, UNSPECIFIED (3) End stage renal disease on dialysis Code(s): N18.6 - END STAGE RENAL DISEASE Z99.2 - DEPENDENCE ON RENAL DIALYSIS (4) Pleural effusion Code(s): J90 - PLEURAL EFFUSION, NOT ELSEWHERE CLASSIFIED (5) Acute on chronic diastolic (congestive) heart failure Code(s): I50.33 - ACUTE ON CHRONIC DIASTOLIC (CONGESTIVE) HEART FAILURE (6) Liver cirrhosis Code(s): K74.60 - UNSPECIFIED CIRRHOSIS OF LIVER (7) Hepatic encephalopathy Code(s): K72.90 - HEPATIC FAILURE, UNSPECIFIED WITHOUT COMA (8) Atrial fibrillation Code(s): I48.91 - UNSPECIFIED ATRIAL FIBRILLATION 1. Acute hypercapneic respiratory failure 2. Acute on Chronic LV Diastolic failure class III NYHA clasification LV failure 3. 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 Persistent atrial fibrillation [id number] score of 3 on no A/C 5. Hypothyroidism 6. ESLD with Hepatic Encephalopathy 7. ESRD on HD PLAN: 1. HD as per renal service 2. Continue Midodrine as hemodynamics require 3. Not an ideal A/C candidate related to to the above noted ESLD (End Stage Liver Disease) 4. BIPAP as needed 5. DVT prophylaxis Further plans are to follow Macario Fisher MD
[2016-09-04 15:23] LABS: ALLENS TEST POSITIVE; ART PUNCT SITE RIGHT RADIAL; ARTERIAL BLOOD GAS BASE EXCESS 6.7 meq/l (-2-2); ARTERIAL BLOOD GAS HCO3 31.1 meq/L (22-26); ARTERIAL BLOOD GAS PO2 86.7 mmHg (68-100); ARTERIAL BLOOD GAS pH 7.45 (7.35-7.45); LPM/O2% 3L; PT. ON O2? YES; TYPE OF O2 NASAL O2
[2016-09-04] MEDS ORDERED: PT OWN MED DRAWER 7, Y5N ONE (15:27)
[2016-09-04] MEDS: LEVOTHYROXINE SODIUM 100 MCG VIAL IM SCH (15:29)
--- NOTE | 2016-09-04 18:28 | PN ---
Progress Note (short form) - Note Progress Note: Renal Follow up for ESRD on HD Pt seen and examined during dialysis Neice at the bedside BP low 70/40's, Goal US is 2L pt is lethargic but arouseable on NC O2 getting Albumin, Low temp, Na modeling with dialysis Vital Signs Temperature 97.6 F 09/04/16 15:43 Pulse Rate 88 09/04/16 16:30 Respiratory Rate 20 09/04/16 16:30 Blood Pressure 76/54 09/04/16 16:30 O2 Sat by Pulse Oximetry (%) 98 09/04/16 10:25 Gen: NAD on BIPAP CVS: RRR, No M/R Lungs: Dec BS throughout the lung mandujano Abd: soft NT/ND Ext: No edema, clubbing or cyanosis CBC, BMP 09/04/16 05:35 09/04/16 05:35 Current Medications Acetaminophen (Tylenol -) 325 mg PO QID [facility] Last Admin: 09/04/16 17:51 Dose: Not Given Aspirin (Asa -) 81 mg PO DAILY [facility] Last Admin: 09/04/16 09:51 Dose: Not Given Ergocalciferol (Drisdol -) 50,000 unit PO We@1000 DAVIS Heparin Sodium (Porcine) (Heparin -) 5,000 unit SQ BID [facility] Last Admin: 09/04/16 09:41 Dose: 5,000 unit Pantoprazole Sodium (Protonix 40mg Ivpb (Pre-Docked)) 100 mls @ 200 mls/hr IVPB DAILY [facility] Last Admin: 09/04/16 09:40 Dose: 200 mls/hr Lactulose (Cephulac (Oral Use)) 10 gm PO BID [facility] Last Admin: 09/04/16 09:52 Dose: Not Given Lactulose (Cephulac (Rectal Use)) 200 gm [place] Q6H PRN Last Admin: 08/30/16 15:49 Dose: 200 gm Levothyroxine Sodium (Synthroid Injection -) 55 mcg IM DAILY [facility] Last Admin: 09/04/16 15:29 Dose: 55 mcg Lidocaine (Lidoderm Patch -) 1 patch TP DAILY [facility] Last Admin: 09/04/16 09:40 Dose: 1 patch Magnesium Chloride (Slow-Mag -) 64 mg PO DAILY [facility] Last Admin: 09/04/16 09:52 Dose: Not Given Midodrine (Proamatine -) 10 mg PO TID-MID [facility] Last Admin: 09/04/16 15:30 Dose: 10 mg Multivit/Ca Carb/B Cmplx/FA/Prenat (Nephro-Lexi -) 1 tablet PO DAILY [facility] Last Admin: 09/04/16 09:52 Dose: Not Given Mupirocin (Bactroban 2% Ointment -) 1 applic TP BID [facility] Last Admin: 09/04/16 09:52 Dose: Not Given Rifaximin (Xifaxan -) 550 mg PO DAILY [facility] Last Admin: 09/04/16 09:54 Dose: Not Given Sevelamer Carbonate (Renvela -) 800 mg PO TIDCM [facility] Last Admin: 09/04/16 17:52 Dose: Not Given A/P This is a 86 year old Gentleman with PMhx of ESRD on HD (MWF), Chronic Cholecystitis, Dementia, DM, Hypertension, Afib with SOB and found to have extrensive pulmonary vascular congestion and hypoxia #ESRD with volume overload HD today with UF of 2L as tolerated Na modeling, Albumin, Low temp with HD Padilla reaccess daily for need for HD/UF dose all meds for intermittent HD #SOB/Hypoxia/Fluid over laod/CHF/AMS CXR and ABG improved Pulmonary following continue BIPAP as needed Rifaxamin/Lactulose as per GI #Anemia Hgb at [facility] Steve LUND
--- NOTE | 2016-09-04 23:46 | PN ---
Progress Note (short form) - Note Progress Note: in bed sitting up O2 via N/C - has not needed bipap Vital Signs Period Temp Pulse Resp BP Sys/Peck Pulse Ox Last 24 Hr 97 F-97.8 F 78-98 18-20 61-94/26-56 98-98 HEENT - base of nose echymotic area skin intact neck -jvd heart irreg lungs grossly clear abd soft non tender ext no edema CBC, BMP 09/04/16 05:35 09/04/16 05:35 Active Medications Acetaminophen (Tylenol -) 325 mg PO QID [facility] Last Admin: 09/04/16 22:47 Dose: Not Given Aspirin (Asa -) 81 mg PO DAILY [facility] Last Admin: 09/04/16 09:51 Dose: Not Given Ergocalciferol (Drisdol -) 50,000 unit PO We@1000 DAVIS Heparin Sodium (Porcine) (Heparin -) 5,000 unit SQ BID [facility] Last Admin: 09/04/16 22:48 Dose: 5,000 unit Pantoprazole Sodium (Protonix 40mg Ivpb (Pre-Docked)) 100 mls @ 200 mls/hr IVPB DAILY [facility] Last Admin: 09/04/16 09:40 Dose: 200 mls/hr Lactulose (Cephulac (Oral Use)) 10 gm PO BID [facility] Last Admin: 09/04/16 22:48 Dose: 10 gm Lactulose (Cephulac (Rectal Use)) 200 gm [place] Q6H PRN Last Admin: 08/30/16 15:49 Dose: 200 gm Levothyroxine Sodium (Synthroid Injection -) 55 mcg IM DAILY [facility] Last Admin: 09/04/16 15:29 Dose: 55 mcg Lidocaine (Lidoderm Patch -) 1 patch TP DAILY [facility] Last Admin: 09/04/16 09:40 Dose: 1 patch Magnesium Chloride (Slow-Mag -) 64 mg PO DAILY [facility] Last Admin: 09/04/16 09:52 Dose: Not Given Midodrine (Proamatine -) 10 mg PO TID-MID [facility] Last Admin: 09/04/16 18:45 Dose: 10 mg Multivit/Ca Carb/B Cmplx/FA/Prenat (Nephro-Lexi -) 1 tablet PO DAILY [facility] Last Admin: 09/04/16 09:52 Dose: Not Given Mupirocin (Bactroban 2% Ointment -) 1 applic TP BID [facility] Last Admin: 09/04/16 22:48 Dose: 1 applic Rifaximin (Xifaxan -) 550 mg PO DAILY [facility] Last Admin: 09/04/16 09:54 Dose: Not Given Sevelamer Carbonate (Renvela -) 800 mg PO TIDCM [facility] Last Admin: 09/04/16 17:52 Dose: Not Given scheduled for HD today ordered for swallow eval this am Problem List - Problems (1) Hypoxia Code(s): R09.02 - HYPOXEMIA (2) Fluid excess Code(s): E87.70 - FLUID OVERLOAD, UNSPECIFIED (3) Acute on chronic diastolic (congestive) heart failure Code(s): I50.33 - ACUTE ON CHRONIC DIASTOLIC (CONGESTIVE) HEART FAILURE (4) Liver cirrhosis Code(s): K74.60 - UNSPECIFIED CIRRHOSIS OF LIVER (5) Pleural effusion Code(s): J90 - PLEURAL EFFUSION, NOT ELSEWHERE CLASSIFIED (6) Altered mental status Code(s): R41.82 - ALTERED MENTAL STATUS, UNSPECIFIED (7) CHF (congestive heart failure) Code(s): I50.9 - HEART FAILURE, UNSPECIFIED Qualifiers: Qualified Code(s): I50.9 - Heart failure, unspecified (8) Altered awareness, transient Code(s): R40.4 - TRANSIENT ALTERATION OF AWARENESS (9) Atrial fibrillation Code(s): I48.91 - UNSPECIFIED ATRIAL FIBRILLATION (10) End stage renal disease on dialysis Code(s): N18.6 - END STAGE RENAL DISEASE Z99.2 - DEPENDENCE ON RENAL DIALYSIS (11) Hepatic encephalopathy Code(s): K72.90 - HEPATIC FAILURE, UNSPECIFIED WITHOUT COMA (12) Hypothyroidism Code(s): E03.9 - HYPOTHYROIDISM, UNSPECIFIED (13) Lethargy Code(s): R53.83 - OTHER FATIGUE
--- NOTE | 2016-09-05 06:57 | PN ---
Progress Note (short form) - Note Progress Note: Chief Complaint: Events noted, notes reviewed, dyspnea persists remains on BiPaP , denies any chest pain History of Present Illness: Seen and examined on telemetry. Events noted, notes reviewed, dyspnea persists remains on BiPaP, denies any chest pain Echocardiography dated 08/28/16 revealed RV dilatation with moderate to severe reduced RV function, LVH with normal LV size and function, severe TR with RVSP of 17 mmHg ???, moderate MR Medications: Current Medications Acetaminophen (Tylenol -) 325 mg PO QID [facility] Last Admin: 09/04/16 22:47 Dose: Not Given Aspirin (Asa -) 81 mg PO DAILY [facility] Last Admin: 09/04/16 09:51 Dose: Not Given Ergocalciferol (Drisdol -) 50,000 unit PO We@1000 DAVIS Heparin Sodium (Porcine) (Heparin -) 5,000 unit SQ BID [facility] Last Admin: 09/04/16 22:48 Dose: 5,000 unit Pantoprazole Sodium (Protonix 40mg Ivpb (Pre-Docked)) 100 mls @ 200 mls/hr IVPB DAILY [facility] Last Admin: 09/04/16 09:40 Dose: 200 mls/hr Lactulose (Cephulac (Oral Use)) 10 gm PO BID [facility] Last Admin: 09/04/16 22:48 Dose: 10 gm Lactulose (Cephulac (Rectal Use)) 200 gm [place] Q6H PRN Last Admin: 08/30/16 15:49 Dose: 200 gm Levothyroxine Sodium (Synthroid Injection -) 55 mcg IM DAILY [facility] Last Admin: 09/04/16 15:29 Dose: 55 mcg Lidocaine (Lidoderm Patch -) 1 patch TP DAILY [facility] Last Admin: 09/04/16 09:40 Dose: 1 patch Magnesium Chloride (Slow-Mag -) 64 mg PO DAILY [facility] Last Admin: 09/04/16 09:52 Dose: Not Given Midodrine (Proamatine -) 10 mg PO TID-MID [facility] Last Admin: 09/04/16 18:45 Dose: 10 mg Multivit/Ca Carb/B Cmplx/FA/Prenat (Nephro-Lexi -) 1 tablet PO DAILY [facility] Last Admin: 09/04/16 09:52 Dose: Not Given Mupirocin (Bactroban 2% Ointment -) 1 applic TP BID [facility] Last Admin: 09/04/16 22:48 Dose: 1 applic Rifaximin (Xifaxan -) 550 mg PO DAILY [facility] Last Admin: 09/04/16 09:54 Dose: Not Given Sevelamer Carbonate (Renvela -) 800 mg PO TIDCM [facility] Last Admin: 09/04/16 17:52 Dose: Not Given Review of Systems - Review of Systems Constitutional: denies: Chills, Fever Cardiovascular: As noted above Respiratory: denies: Cough or Sputum Production Gastrointestinal: denies: Nausea, Vomiting, Diarrhea, Constipation or Abdominal Pain Neurological: No Symptoms Reported Vital Signs: Last Vital Signs Temp Pulse Resp BP Pulse Ox 98.2 F 87 18 62 98 09/05/16 06:00 09/05/16 06:00 09/05/16 06:00 09/05/16 06:00 09/04/16 21:00 Constitutional: No Distress, Calm, Thin Neck: Supple Negative JVD No Bruit Respiratory: Diminished Breath Sounds Bilaterally with Bilateral Scattered Rhonchi Cardiovascular: S1 S2 Irregularly Irregular Grade 2/6 SM Gastrointestinal: Soft Benign Normal Bowel Sounds Ext: No Edema Labs: CBC, BMP 09/04/16 05:35 09/04/16 05:35 ASSESSMENT/PLAN: ASSESSMENT: 1. Acute hypercapneic respiratory failure 2. Acute on Chronic LV Diastolic failure class III NYHA clasification LV failure , resolving 3. 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 Persistent atrial fibrillation [id number] score of 3 on no A/C 5. Hypothyroidism 6. ESLD with Hepatic Encephalopathy 7. ESRD on HD PLAN: 1. Volume removal via HD as per renal service 2. Continue Midodrine as hemodynamics require 3. Not an ideal A/C candidate related to to the above noted ESLD (End Stage Liver Disease) 4. Supplemental O2 via BiPaP Overall poor prognosis Esdras Toro MD
[2016-09-05 08:07] LABS: ALPHA 2 MACROGLOBULINS,QN 171 mg/dL (110-276); BILIRUBIN TOTAL 0.7 mg/dL (0.0-1.2); GGT= 76 IU/L (0-65); GLUCOSE SERUM 110 mg/dL (65-99); HAPTOGLOBIN= 108 mg/dL (34-200); HEIGHT 70 Inches (.); STEATOSIS GRADE S1 - Mild Steatosis (.); TRIGLYCERIDES= 100 mg/dL (0-149)
[2016-09-05] MEDS: SEVELAMER CARBONATE 800 MG TAB (FP) PO SCH ×3 (09:23→17:09)
[2016-09-05] MEDS: PANTOPRAZOLE SODIUM 100 ML IVPB SCH (09:27)
[2016-09-05] MEDS: LEVOTHYROXINE SODIUM 100 MCG VIAL IM SCH (09:28)
[2016-09-05] MEDS: HEPARIN NA (PORCINE) 5,000 UNITS/ML 1ML VIAL SQ SCH ×2 (09:28→22:14)
[2016-09-05] MEDS: LIDOCAINE 5% TOPICAL PATCH TP SCH (09:28)
[2016-09-05] MEDS: ACETAMINOPHEN 325 MG TABLET (FP) PO SCH ×4 (10:10→22:14)
[2016-09-05] MEDS: ASPIRIN 81 MG CHEWABLE TABLETS PO SCH (10:10)
[2016-09-05] MEDS: LACTULOSE 20 GM/30 ML UDC (FOR ORAL USE ONLY) PO SCH ×2 (10:11→22:00)
[2016-09-05] MEDS: MIDODRINE HCL 5 MG TABLET PO SCH ×3 (10:11→17:07)
[2016-09-05] MEDS: MAGNESIUM CL 64 MG TABLET.SA PO SCH (10:11)
--- NOTE | 2016-09-05 10:26 | PN ---
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 Verbal BP low. Discussed with cardiology. This is baseline for this pt. He is cleared to go down for MBS., Pt tolerated puree and nectar on a tsp yesterday. Selected Entries 09/04/16 09/04/16 09/04/16 02:00 06:00 09:01 Lunch Supper Temperature 97.0 F L 97.8 F 97 F L 09/04/16 09/04/16 09/04/16 15:43 18:00 20:00 Lunch 25% Supper 25% Temperature 97.6 F 97.4 F L 97 F L 09/05/16 09/05/16 09/05/16 02:00 06:00 08:32 Lunch Supper Temperature 97.5 F L 98.2 F 97 F L For MBS today.
--- NOTE | 2016-09-05 11:18 | PN ---
Progress Note (short form) - Note Progress Note: Renal Follow up for ESRD on HD Pt seen and examined at the bedside appears more lethargic but nurse reports that he was awake and alert and ate all his breakfast s/p dialysis yesterday with 1kg UF BP very low today Vital Signs Temperature 97 F L 09/05/16 08:32 Pulse Rate 78 09/05/16 08:32 Respiratory Rate 20 09/05/16 08:32 Blood Pressure 70/38 09/05/16 08:32 O2 Sat by Pulse Oximetry (%) 98 09/04/16 21:00 Intake & Output 09/02/16 09/03/16 09/04/16 09/05/16 23:59 23:59 23:59 23:59 Intake Total 160 120 0 10 Balance 160 120 0 10 Weight 118 lb 6.4 oz Gen: NAD on BIPAP CVS: RRR, No M/R Lungs: Dec BS throughout the lung mandujano Abd: soft NT/ND Ext: No edema, clubbing or cyanosis CBC, BMP 09/04/16 05:35 09/04/16 05:35 Current Medications Acetaminophen (Tylenol -) 325 mg PO QID [facility] Last Admin: 09/05/16 10:10 Dose: 325 mg Aspirin (Asa -) 81 mg PO DAILY [facility] Last Admin: 09/05/16 10:10 Dose: 81 mg Ergocalciferol (Drisdol -) 50,000 unit PO We@1000 DAVIS Heparin Sodium (Porcine) (Heparin -) 5,000 unit SQ BID [facility] Last Admin: 09/05/16 09:28 Dose: 5,000 unit Pantoprazole Sodium (Protonix 40mg Ivpb (Pre-Docked)) 100 mls @ 200 mls/hr IVPB DAILY [facility] Last Admin: 09/05/16 09:27 Dose: 200 mls/hr Lactulose (Cephulac (Oral Use)) 10 gm PO BID [facility] Last Admin: 09/05/16 10:11 Dose: 10 gm Lactulose (Cephulac (Rectal Use)) 200 gm [place] Q6H PRN Last Admin: 08/30/16 15:49 Dose: 200 gm Levothyroxine Sodium (Synthroid Injection -) 55 mcg IM DAILY [facility] Last Admin: 09/05/16 09:28 Dose: 55 mcg Lidocaine (Lidoderm Patch -) 1 patch TP DAILY [facility] Last Admin: 09/05/16 09:28 Dose: 1 patch Magnesium Chloride (Slow-Mag -) 64 mg PO DAILY [facility] Last Admin: 09/05/16 10:11 Dose: 64 mg Midodrine (Proamatine -) 10 mg PO TID-MID [facility] Last Admin: 09/05/16 10:11 Dose: 10 mg Multivit/Ca Carb/B Cmplx/FA/Prenat (Nephro-Lexi -) 1 tablet PO DAILY [facility] Last Admin: 09/04/16 09:52 Dose: Not Given Mupirocin (Bactroban 2% Ointment -) 1 applic TP BID [facility] Last Admin: 09/04/16 22:48 Dose: 1 applic Rifaximin (Xifaxan -) 550 mg PO DAILY [facility] Last Admin: 09/04/16 09:54 Dose: Not Given Sevelamer Carbonate (Renvela -) 800 mg PO TIDCM [facility] Last Admin: 09/05/16 09:23 Dose: Not Given A/P This is a 86 year old Gentleman with PMhx of ESRD on HD (MWF), Chronic Cholecystitis, Dementia, DM, Hypertension, Afib with SOB and found to have extrensive pulmonary vascular congestion and hypoxia #ESRD with volume overload with chronic hypotension will not plan for dialysis or UF today will attempt dialysis tomorrow with UF as tolerated continue Midodrine for BP support continue O2 via ELVIN Wilson DO
[2016-09-05] MEDS: MUPIROCIN 2% TOPICAL OINTMENT 22 GM TUBE TP SCH ×2 (13:40→22:15)
[2016-09-05] MEDS: VITAMIN B COMP W-C 1 EA TABLET PO SCH (13:40)
[2016-09-05] MEDS: RIFAXIMIN 550 MG TABLET (UD) PO SCH (13:40)
--- NOTE | 2016-09-05 15:42 | PN ---
Progress Note (short form) - Note Progress Note: PULMONARY Comfortable, denies shortness of breath. No fevers recorded. Last Vital Signs Temp Pulse Resp BP Pulse Ox 97.4 F L 74 22 68/37 98 09/05/16 14:16 09/05/16 14:16 09/05/16 14:16 09/05/16 14:16 09/05/16 09:00 Gen: NAD at rest Heart: RRR Lung: decreased breath sounds at the bases Abd: soft, nontender Ext: no edema CBC, BMP 09/04/16 05:35 09/04/16 05:35 Active Medications Acetaminophen (Tylenol -) 325 mg PO QID [facility] Last Admin: 09/05/16 15:02 Dose: Not Given Aspirin (Asa -) 81 mg PO DAILY [facility] Last Admin: 09/05/16 10:10 Dose: 81 mg Ergocalciferol (Drisdol -) 50,000 unit PO We@1000 DAVIS Heparin Sodium (Porcine) (Heparin -) 5,000 unit SQ BID [facility] Last Admin: 09/05/16 09:28 Dose: 5,000 unit Pantoprazole Sodium (Protonix 40mg Ivpb (Pre-Docked)) 100 mls @ 200 mls/hr IVPB DAILY [facility] Last Admin: 09/05/16 09:27 Dose: 200 mls/hr Lactulose (Cephulac (Oral Use)) 10 gm PO BID [facility] Last Admin: 09/05/16 10:11 Dose: 10 gm Lactulose (Cephulac (Rectal Use)) 200 gm [place] Q6H PRN Last Admin: 08/30/16 15:49 Dose: 200 gm Levothyroxine Sodium (Synthroid Injection -) 55 mcg IM DAILY [facility] Last Admin: 09/05/16 09:28 Dose: 55 mcg Lidocaine (Lidoderm Patch -) 1 patch TP DAILY [facility] Last Admin: 09/05/16 09:28 Dose: 1 patch Magnesium Chloride (Slow-Mag -) 64 mg PO DAILY [facility] Last Admin: 09/05/16 10:11 Dose: 64 mg Midodrine (Proamatine -) 10 mg PO TID-MID [facility] Last Admin: 09/05/16 13:39 Dose: 10 mg Multivit/Ca Carb/B Cmplx/FA/Prenat (Nephro-Lexi -) 1 tablet PO DAILY [facility] Last Admin: 09/05/16 13:40 Dose: 1 tablet Mupirocin (Bactroban 2% Ointment -) 1 applic TP BID [facility] Last Admin: 09/05/16 13:40 Dose: Not Given Rifaximin (Xifaxan -) 550 mg PO DAILY [facility] Last Admin: 09/05/16 13:40 Dose: Not Given Sevelamer Carbonate (Renvela -) 800 mg PO TIDCM [facility] Last Admin: 09/05/16 13:39 Dose: Not Given A/P Altered Mental Status improving Acute on Chronic Hypercapneic Respiratory Failure improved ESRD on HD Acute on Chronic LV Diastolic Heart Failure Atrial Fibrillation RV Dysfunction Pleural Effusions Liver Cirrhosis - HD per renal with ultrafiltration - lactulose, rifaximin - monitor ammonia level - titrate FiO2 to keep SpO2 >90% - BiPAP as needed to assist in work of breathing - DVT/GI prophylaxis Problem List - Problems (1) Acute hypercapnic respiratory failure Code(s): J96.02 - ACUTE RESPIRATORY FAILURE WITH HYPERCAPNIA (2) Altered mental status Code(s): R41.82 - ALTERED MENTAL STATUS, UNSPECIFIED (3) End stage renal disease on dialysis Code(s): N18.6 - END STAGE RENAL DISEASE Z99.2 - DEPENDENCE ON RENAL DIALYSIS (4) Pleural effusion Code(s): J90 - PLEURAL EFFUSION, NOT ELSEWHERE CLASSIFIED (5) Acute on chronic diastolic (congestive) heart failure Code(s): I50.33 - ACUTE ON CHRONIC DIASTOLIC (CONGESTIVE) HEART FAILURE (6) Liver cirrhosis Code(s): K74.60 - UNSPECIFIED CIRRHOSIS OF LIVER (7) Hepatic encephalopathy Code(s): K72.90 - HEPATIC FAILURE, UNSPECIFIED WITHOUT COMA (8) Atrial fibrillation Code(s): I48.91 - UNSPECIFIED ATRIAL FIBRILLATION
--- NOTE | 2016-09-05 22:24 | PN ---
Progress Note (short form) - Note Progress Note: review of swallow eval will need close supervision with feedings until stronger No HD today per nephrology remains Hypotensive drowsy / late at night at time of visit Vital Signs Period Temp Pulse Resp BP Sys/Peck Pulse Ox Last 24 Hr 97 F-98.2 F 74-88 18-22 60-70/30-56 94-98 CBC, BMP 09/04/16 05:35 09/04/16 05:35 Intake & Output 09/02/16 09/03/16 09/04/16 09/05/16 23:59 23:59 23:59 23:59 Intake Total 160 120 0 10 Balance 160 120 0 10 Weight 118 lb 6.4 oz sitting in bed COmfortable bridge of nosewith hematoma - no broken skin neck supple heart irregular lungs scattered rhonchi abd soft ext no edema Active Medications Acetaminophen (Tylenol -) 325 mg PO QID [facility] Last Admin: 09/05/16 22:14 Dose: 325 mg Aspirin (Asa -) 81 mg PO DAILY [facility] Last Admin: 09/05/16 10:10 Dose: 81 mg Ergocalciferol (Drisdol -) 50,000 unit PO We@1000 [facility] Heparin Sodium (Porcine) (Heparin -) 5,000 unit SQ BID [facility] Last Admin: 09/05/16 22:14 Dose: 5,000 unit Pantoprazole Sodium (Protonix 40mg Ivpb (Pre-Docked)) 100 mls @ 200 mls/hr IVPB DAILY [facility] Last Admin: 09/05/16 09:27 Dose: 200 mls/hr Lactulose (Cephulac (Oral Use)) 10 gm PO BID [facility] Last Admin: 09/05/16 10:11 Dose: 10 gm Lactulose (Cephulac (Rectal Use)) 200 gm DC Q6H PRN Last Admin: 08/30/16 15:49 Dose: 200 gm Levothyroxine Sodium (Synthroid Injection -) 55 mcg IM DAILY [facility] Last Admin: 09/05/16 09:28 Dose: 55 mcg Lidocaine (Lidoderm Patch -) 1 patch TP DAILY [facility] Last Admin: 09/05/16 09:28 Dose: 1 patch Magnesium Chloride (Slow-Mag -) 64 mg PO DAILY [facility] Last Admin: 09/05/16 10:11 Dose: 64 mg Midodrine (Proamatine -) 10 mg PO TID-MID [facility] Last Admin: 09/05/16 17:07 Dose: 10 mg Multivit/Ca Carb/B Cmplx/FA/Prenat (Nephro-Lexi -) 1 tablet PO DAILY [facility] Last Admin: 09/05/16 13:40 Dose: 1 tablet Mupirocin (Bactroban 2% Ointment -) 1 applic TP BID [facility] Last Admin: 09/05/16 22:15 Dose: 1 applic Rifaximin (Xifaxan -) 550 mg PO DAILY [facility] Last Admin: 09/05/16 13:40 Dose: Not Given Sevelamer Carbonate (Renvela -) 800 mg PO TIDCM [facility] Last Admin: 09/05/16 17:09 Dose: Not Given scheduled for HD in am possible d/c back to [place] soon have discussed with Madeline Problem List - Problems (1) Hypoxia Code(s): R09.02 - HYPOXEMIA (2) Fluid excess Code(s): E87.70 - FLUID OVERLOAD, UNSPECIFIED (3) Acute on chronic diastolic (congestive) heart failure Code(s): I50.33 - ACUTE ON CHRONIC DIASTOLIC (CONGESTIVE) HEART FAILURE (4) Liver cirrhosis Code(s): K74.60 - UNSPECIFIED CIRRHOSIS OF LIVER (5) Pleural effusion Code(s): J90 - PLEURAL EFFUSION, NOT ELSEWHERE CLASSIFIED (6) Altered mental status Code(s): R41.82 - ALTERED MENTAL STATUS, UNSPECIFIED (7) CHF (congestive heart failure) Code(s): I50.9 - HEART FAILURE, UNSPECIFIED Qualifiers: Qualified Code(s): I50.9 - Heart failure, unspecified (8) Altered awareness, transient Code(s): R40.4 - TRANSIENT ALTERATION OF AWARENESS (9) Atrial fibrillation Code(s): I48.91 - UNSPECIFIED ATRIAL FIBRILLATION (10) End stage renal disease on dialysis Code(s): N18.6 - END STAGE RENAL DISEASE Z99.2 - DEPENDENCE ON RENAL DIALYSIS (11) Hepatic encephalopathy Code(s): K72.90 - HEPATIC FAILURE, UNSPECIFIED WITHOUT COMA (12) Hypothyroidism Code(s): E03.9 - HYPOTHYROIDISM, UNSPECIFIED (13) Lethargy Code(s): R53.83 - OTHER FATIGUE
[2016-09-06] MEDS ORDERED: PT OWN MED DRAWER 7, Y5N ONE (09:04)
[2016-09-06] MEDS: RIFAXIMIN 550 MG TABLET (UD) PO SCH (10:00)
[2016-09-06] MEDS: ACETAMINOPHEN 325 MG TABLET (FP) PO SCH ×3 (10:00→21:48)
[2016-09-06] MEDS ORDERED: ERGOCALCIFEROL (VITAMIN D2) 50,000 UNIT CAPSULE (FP) PO SCH (10:00)
[2016-09-06] MEDS: VITAMIN B COMP W-C 1 EA TABLET PO SCH (10:00)
[2016-09-06] MEDS: ALBUMIN HUMAN 25% 50 ML VIAL IVPB SCH ×4 (10:00→13:01)
[2016-09-06] MEDS: HEPARIN NA (PORCINE) 5,000 UNITS/ML 1ML VIAL SQ SCH ×2 (10:00→21:50)
[2016-09-06] MEDS: SEVELAMER CARBONATE 800 MG TAB (FP) PO SCH ×3 (10:00→18:41)
[2016-09-06] MEDS: MIDODRINE HCL 5 MG TABLET PO SCH ×3 (10:03→18:36)
[2016-09-06 10:25] LABS: MCH 32.7 pg (25.7-33.7); MCHC 31.6 g/dl (32.0-35.9); MEAN CELL VOLUME 103.5 fl (80-96); MEAN PLT VOLUME 9.5 fl (7.5-11.1); PLATELET COUNT 113 K/MM3 (134-434); RDW 18.4 % (11.9-15.9); WHITE BLOOD COUNT 5.8 K/mm3 (4.0-10.0)
--- NOTE | 2016-09-06 10:36 | PN ---
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 On puree and honey thick liquid ON A TSP ONLY. Selected Entries 09/05/16 09/05/16 09/05/16 02:00 06:00 08:32 Lunch Supper Temperature 97.5 F L 98.2 F 97 F L 09/05/16 09/05/16 09/05/16 14:16 17:00 21:00 Lunch 100% Supper Temperature 97.4 F L 97.7 F 97.1 F L 09/05/16 09/06/16 09/06/16 21:16 01:00 05:00 Lunch Supper 50% Temperature 97.2 F L 97.2 F L Laboratory Tests 09/04/16 09/06/16 05:35 10:00 WBC 9.5 D 5.8 D Pending d/c to [facility]. Suggest sp/sw evaluation and tx at [facility].
[2016-09-06 10:50] LABS: CALCIUM 9.3 mg/dL (8.5-10.1); CREATININE 5.9 mg/dL (0.7-1.3)
--- NOTE | 2016-09-06 10:56 | PN ---
Progress Note, Physician History of Present Illness: PULMONARY ALERT,NAD,ON DIALYSIS,-SOB - Current Medication List Current Medications: Active Medications Acetaminophen (Tylenol -) 325 mg PO QID [facility] Last Admin: 09/05/16 22:14 Dose: 325 mg Aspirin (Asa -) 81 mg PO DAILY [facility] Last Admin: 09/05/16 10:10 Dose: 81 mg Ergocalciferol (Drisdol -) 50,000 unit PO We@1000 [facility] Heparin Sodium (Porcine) (Heparin -) 5,000 unit SQ BID [facility] Last Admin: 09/05/16 22:14 Dose: 5,000 unit Pantoprazole Sodium (Protonix 40mg Ivpb (Pre-Docked)) 100 mls @ 200 mls/hr IVPB DAILY [facility] Last Admin: 09/05/16 09:27 Dose: 200 mls/hr Lactulose (Cephulac (Oral Use)) 10 gm PO BID [facility] Last Admin: 09/05/16 22:00 Dose: Not Given Lactulose (Cephulac (Rectal Use)) 200 gm ID Q6H PRN Last Admin: 08/30/16 15:49 Dose: 200 gm Levothyroxine Sodium (Synthroid Injection -) 55 mcg IM DAILY [facility] Last Admin: 09/05/16 09:28 Dose: 55 mcg Lidocaine (Lidoderm Patch -) 1 patch TP DAILY [facility] Last Admin: 09/05/16 09:28 Dose: 1 patch Magnesium Chloride (Slow-Mag -) 64 mg PO DAILY [facility] Last Admin: 09/05/16 10:11 Dose: 64 mg Midodrine (Proamatine -) 10 mg PO TID-MID [facility] Last Admin: 09/06/16 10:03 Dose: 10 mg Multivit/Ca Carb/B Cmplx/FA/Prenat (Nephro-Lexi -) 1 tablet PO DAILY [facility] Last Admin: 09/05/16 13:40 Dose: 1 tablet Mupirocin (Bactroban 2% Ointment -) 1 applic TP BID [facility] Last Admin: 09/05/16 22:15 Dose: 1 applic Rifaximin (Xifaxan -) 550 mg PO DAILY [facility] Last Admin: 09/05/16 13:40 Dose: Not Given Sevelamer Carbonate (Renvela -) 800 mg PO TIDCM [facility] Last Admin: 09/05/16 17:09 Dose: Not Given - Objective Vital Signs: Vital Signs Temperature 98.8 F 09/06/16 09:55 Pulse Rate 88 09/06/16 10:30 Respiratory Rate 18 09/06/16 10:30 Blood Pressure 90/41 09/06/16 10:30 O2 Sat by Pulse Oximetry (%) 95 09/05/16 22:41 Constitutional: Yes: Calm, Thin Eyes: Yes: WNL HENT: Yes: WNL Neck: Yes: WNL Cardiovascular: Yes: Pulse Irregular, S1, S2 Respiratory: Yes: Diminished Gastrointestinal: Yes: Normal Bowel Sounds, Soft Extremities: Yes: WNL Edema: No Labs: CBC, BMP 09/06/16 10:00 Assessment/Plan Altered Mental Status resolved Acute Hypercapneic Respiratory Failure/bipap PRN ESRD on HD Acute on Chronic LV Diastolic Heart Failure Atrial Fibrillation RV Dysfunction Pleural Effusions Liver Cirrhosis Hepatic Encephalopathy/Elevated lactulose - Lactulose/rifaximin - BIPAP PRN - HD per renal - FiO2 to keep SpO2 >90% - DVT/GI prophylaxis DR HAGER
--- NOTE | 2016-09-06 11:09 | PN ---
Progress Note (short form) - Note Progress Note: S: 86 year old male, history of respiratory failure currently undergoing dialysis. Known case of permanent atrial fibrillation, hyperthyroidism, left ventricular diastolic dysfunction/failure, end stage renal disease. Patient presently is off BIPAP, is lethargic, denies shortness of breath, no chest pain or discomfort has been reported. Persistent atrial fibrillation with controlled ventricular response. Active Medications Generic Name Dose Route Start Last Admin Trade Name Freq PRN Reason Stop Dose Admin Acetaminophen 325 mg 08/31/16 10:00 09/05/16 22:14 Tylenol - PO 325 mg QID [facility] Administration Aspirin 81 mg 08/31/16 10:00 09/05/16 10:10 Asa - PO 81 mg DAILY [facility] Administration Ergocalciferol 50,000 unit 09/06/16 10:00 Drisdol - PO We@1000 [facility] Heparin Sodium (Porcine) 5,000 unit 08/31/16 10:00 09/05/16 22:14 Heparin - SQ 5,000 unit BID [facility] Administration Pantoprazole Sodium 100 mls @ 200 mls/hr 09/01/16 15:00 09/05/16 09:27 Protonix 40mg Ivpb (Pre-Docked) IVPB 200 mls/hr DAILY [facility] Administration Lactulose 10 gm 08/29/16 22:00 09/05/16 22:00 Cephulac (Oral Use) PO Not Given BID [facility] Lactulose 200 gm 08/30/16 12:45 08/30/16 15:49 Cephulac (Rectal Use) CA 200 gm Q6H PRN Administration Levothyroxine Sodium 55 mcg 08/31/16 12:30 09/05/16 09:28 Synthroid Injection - IM 55 mcg DAILY [facility] Administration Lidocaine 1 patch 08/31/16 10:00 09/05/16 09:28 Lidoderm Patch - TP 1 patch DAILY [facility] Administration Magnesium Chloride 64 mg 08/31/16 12:30 09/05/16 10:11 Slow-Mag - PO 64 mg DAILY [facility] Administration Midodrine 10 mg 08/31/16 10:00 09/06/16 10:03 Proamatine - PO 10 mg TID-MID [facility] Administration Multivit/Ca Carb/B Cmplx/FA/Prenat 1 tablet 08/30/16 10:00 09/05/16 13:40 Nephro-Lexi - PO 1 tablet DAILY [facility] Administration Mupirocin 1 applic 08/31/16 10:00 09/05/16 22:15 Bactroban 2% Ointment - TP 1 applic BID [facility] Administration Rifaximin 550 mg 08/30/16 10:00 09/05/16 13:40 Xifaxan - PO Not Given DAILY [facility] Sevelamer Carbonate 800 mg 08/30/16 08:00 09/05/16 17:09 Renvela - PO Not Given TIDCM [facility] O: 86 year old male was in no acute distress, no pallor, cyanosis, clubbing, or jaundice. Last Vital Signs Temp Pulse Resp BP Pulse Ox 98.8 F 80 Irregular 18 81/ 95 09/06/16 09:55 09/06/16 11:00 09/06/16 11:00 09/06/16 11:00 09/05/16 22:41 Neck: Supple, no JVD, negative HJR, carotids were equal and upstrokes were normal, no thyromegaly appreciated. Heart: PMI was in the 5th intercostal space, no heaves or thrills, S1 and S2 were normal. No murmurs or gallops were appreciated. Lungs: Scattered crepitations. No expiratory wheezing heard. Abdomen: Soft, nontender, no hepatosplenomegaly appreciated, and no palpable masses were felt. Extremities: No calf tenderness or dependent edema. Pulses are normal. CBC, BMP 09/06/16 10:00 09/06/16 10:00 Laboratory Results - last 24 hr 09/06/16 09/06/16 10:00 10:00 WBC 5.8 D RBC 3.54 L Hgb 11.6 L Hct 36.6 MCV 103.5 H MCHC 31.6 L RDW 18.4 H Plt Count 113 L D MPV 9.5 Sodium 140 Potassium 4.0 Chloride 98 Carbon Dioxide 30 Anion Gap 12 BUN 62 H D Creatinine 5.9 H D Random Glucose 185 H D Calcium 9.3 Impression: (1) Acute hypercapnic respiratory failure, resolving. Code(s): J96.02 - ACUTE RESPIRATORY FAILURE WITH HYPERCAPNIA (2) End stage renal disease on dialysis Code(s): N18.6 - END STAGE RENAL DISEASE Z99.2 - DEPENDENCE ON RENAL DIALYSIS (3) Acute on chronic diastolic (congestive) heart failure Code(s): I50.33 - ACUTE ON CHRONIC DIASTOLIC (CONGESTIVE) HEART FAILURE (4) History of Liver cirrhosis Code(s): K74.60 - UNSPECIFIED CIRRHOSIS OF LIVER (5) Atrial fibrillation, with controlled ventricular response. Code(s): I48.91 - UNSPECIFIED ATRIAL FIBRILLATION (6) Hypothyroidism, on replacement therapy Recommendations: 1. Follow up X-Ray Chest. 2. Continue current therapy. Prognosis: Guarded Attestation: Documentation prepared by Ba Moralez, acting as electromedical service engineer for Irvin Khan MD.
--- NOTE | 2016-09-06 11:14 | PN ---
Progress Note (short form) - Note Progress Note: Renal Follow up for ESRD on HD Pt seen and examined during dialysis BP 90/30. Goal UF is 1L access with good function pt is awake and alert and answering questions no acute complaints Vital Signs Temperature 98.8 F 09/06/16 09:55 Pulse Rate 80 09/06/16 11:00 Respiratory Rate 18 09/06/16 11:00 Blood Pressure 81/31 09/06/16 11:00 O2 Sat by Pulse Oximetry (%) 95 09/05/16 22:41 Intake & Output 09/03/16 09/04/16 09/05/16 09/06/16 23:59 23:59 23:59 23:59 Intake Total 120 0 10 380 Balance 120 0 10 380 Weight 118 lb 6.4 oz Gen: NAD on BIPAP CVS: RRR, No M/R Lungs: Dec BS throughout the lung mandujano Abd: soft NT/ND Ext: No edema, clubbing or cyanosis CBC, BMP 09/06/16 10:00 09/06/16 10:00 Current Medications Acetaminophen (Tylenol -) 325 mg PO QID [facility] Last Admin: 09/05/16 22:14 Dose: 325 mg Aspirin (Asa -) 81 mg PO DAILY [facility] Last Admin: 09/05/16 10:10 Dose: 81 mg Ergocalciferol (Drisdol -) 50,000 unit PO We@1000 [facility] Heparin Sodium (Porcine) (Heparin -) 5,000 unit SQ BID [facility] Last Admin: 09/05/16 22:14 Dose: 5,000 unit Pantoprazole Sodium (Protonix 40mg Ivpb (Pre-Docked)) 100 mls @ 200 mls/hr IVPB DAILY [facility] Last Admin: 09/05/16 09:27 Dose: 200 mls/hr Lactulose (Cephulac (Oral Use)) 10 gm PO BID [facility] Last Admin: 09/05/16 22:00 Dose: Not Given Lactulose (Cephulac (Rectal Use)) 200 gm SD Q6H PRN Last Admin: 08/30/16 15:49 Dose: 200 gm Levothyroxine Sodium (Synthroid Injection -) 55 mcg IM DAILY [facility] Last Admin: 09/05/16 09:28 Dose: 55 mcg Lidocaine (Lidoderm Patch -) 1 patch TP DAILY [facility] Last Admin: 09/05/16 09:28 Dose: 1 patch Magnesium Chloride (Slow-Mag -) 64 mg PO DAILY [facility] Last Admin: 09/05/16 10:11 Dose: 64 mg Midodrine (Proamatine -) 10 mg PO TID-MID [facility] Last Admin: 09/06/16 10:03 Dose: 10 mg Multivit/Ca Carb/B Cmplx/FA/Prenat (Nephro-Lexi -) 1 tablet PO DAILY [facility] Last Admin: 09/05/16 13:40 Dose: 1 tablet Mupirocin (Bactroban 2% Ointment -) 1 applic TP BID [facility] Last Admin: 09/05/16 22:15 Dose: 1 applic Rifaximin (Xifaxan -) 550 mg PO DAILY [facility] Last Admin: 09/05/16 13:40 Dose: Not Given Sevelamer Carbonate (Renvela -) 800 mg PO TIDCM [facility] Last Admin: 09/05/16 17:09 Dose: Not Given A/P This is a 86 year old Gentleman with PMhx of ESRD on HD (MWF), Chronic Cholecystitis, Dementia, DM, Hypertension, Afib with SOB and found to have extrensive pulmonary vascular congestion and hypoxia #ESRD with volume overload with chronic hypotension Currently getting dialysis UF goal is 1-1.5L as tolerated Pt is getting IV albumin, Sodium Modeling and Low temp with dialysis to maintain BP Can continue HD as outpatient with low temp and Na modeling UF as tolerated as outpatient #Silent aspiration On Honey thick liquids as per Swallow therapist Jamir Wilson DO
[2016-09-06 11:59] LABS: PHOSPHOROUS 1.3 mg/dL (2.5-4.9)
[2016-09-06] MEDS: PANTOPRAZOLE SODIUM 100 ML IVPB SCH (14:04)
[2016-09-06] MEDS: ASPIRIN 81 MG CHEWABLE TABLETS PO SCH (14:05)
[2016-09-06] MEDS: MUPIROCIN 2% TOPICAL OINTMENT 22 GM TUBE TP SCH ×2 (14:06→21:49)
[2016-09-06] MEDS: LACTULOSE 20 GM/30 ML UDC (FOR ORAL USE ONLY) PO SCH ×2 (14:07→21:54)
[2016-09-06] MEDS: MAGNESIUM CL 64 MG TABLET.SA PO SCH (14:07)
[2016-09-06] MEDS: LEVOTHYROXINE SODIUM 100 MCG VIAL IM SCH (14:08)
[2016-09-06] MEDS: LIDOCAINE 5% TOPICAL PATCH TP SCH (14:09)
--- NOTE | 2016-09-06 23:49 | PN ---
Progress Note (short form) - Note Progress Note: patient seen earlier in the day prior to HD awake / interactive / hypotensive NAD RN at bedside notifying nephrology of BP prior to starting HD discussed swallow eval with Andree Huber she feels h is safe with current diet and aspiration precautions and careful feeding She will communicate this to speech therapist @ [facility] I have discussed plans for return to [facility] with HCP, to occur as early as today post HD if appropriate. However I was notified by d/c information systems planner patient was lethargic and not arousable post HD also need PT evaluation for ability to transfer from bed to chair will defer discharge till am -if remains stable and appropriate for d/c home Vital Signs Period Temp Pulse Resp BP Sys/Peck Pulse Ox Last 24 Hr 97.0 F-98.8 F 56-91 18-22 66-136/31-100 93-99 sitting in bed awake comfortable neck supple heart irreg lungs clear anterioirly and lateral abd soft non tender ext no edema CBC, BMP 09/06/16 10:00 09/06/16 10:00 Intake & Output 09/03/16 09/04/16 09/05/16 09/06/16 23:59 23:59 23:59 23:59 Intake Total 120 0 10 380 Balance 120 0 10 380 Weight 118 lb 6.4 oz Active Medications Acetaminophen (Tylenol -) 325 mg PO QID [facility] Last Admin: 09/06/16 21:48 Dose: 325 mg Aspirin (Asa -) 81 mg PO DAILY [facility] Last Admin: 09/06/16 14:05 Dose: 81 mg Ergocalciferol (Drisdol -) 50,000 unit PO We@1000 [facility] Last Admin: 09/06/16 14:09 Dose: 50,000 unit Heparin Sodium (Porcine) (Heparin -) 5,000 unit SQ BID [facility] Last Admin: 09/06/16 21:50 Dose: 5,000 unit Pantoprazole Sodium (Protonix 40mg Ivpb (Pre-Docked)) 100 mls @ 200 mls/hr IVPB DAILY [facility] Last Admin: 09/06/16 14:04 Dose: 200 mls/hr Lactulose (Cephulac (Oral Use)) 10 gm PO BID [facility] Last Admin: 09/06/16 21:54 Dose: 10 gm Lactulose (Cephulac (Rectal Use)) 200 gm [place] Q6H PRN Last Admin: 08/30/16 15:49 Dose: 200 gm Levothyroxine Sodium (Synthroid Injection -) 55 mcg IM DAILY [facility] Last Admin: 09/06/16 14:08 Dose: 55 mcg Lidocaine (Lidoderm Patch -) 1 patch TP DAILY [facility] Last Admin: 09/06/16 14:09 Dose: 1 patch Magnesium Chloride (Slow-Mag -) 64 mg PO DAILY [facility] Last Admin: 09/06/16 14:07 Dose: 64 mg Midodrine (Proamatine -) 10 mg PO TID-MID [facility] Last Admin: 09/06/16 18:36 Dose: 10 mg Multivit/Ca Carb/B Cmplx/FA/Prenat (Nephro-Lexi -) 1 tablet PO DAILY [facility] Last Admin: 09/06/16 10:00 Dose: Not Given Mupirocin (Bactroban 2% Ointment -) 1 applic TP BID [facility] Last Admin: 09/06/16 21:49 Dose: 1 applic Sevelamer Carbonate (Renvela -) 800 mg PO TIDCM [facility] Last Admin: 09/06/16 18:41 Dose: Not Given Problem List - Problems (1) Altered awareness, transient Code(s): R40.4 - TRANSIENT ALTERATION OF AWARENESS (2) Altered mental status Code(s): R41.82 - ALTERED MENTAL STATUS, UNSPECIFIED (3) Atrial fibrillation Code(s): I48.91 - UNSPECIFIED ATRIAL FIBRILLATION (4) Hypoxia Code(s): R09.02 - HYPOXEMIA (5) Acute on chronic diastolic (congestive) heart failure Code(s): I50.33 - ACUTE ON CHRONIC DIASTOLIC (CONGESTIVE) HEART FAILURE (6) Liver cirrhosis Code(s): K74.60 - UNSPECIFIED CIRRHOSIS OF LIVER (7) Pleural effusion Code(s): J90 - PLEURAL EFFUSION, NOT ELSEWHERE CLASSIFIED (8) CHF (congestive heart failure) Code(s): I50.9 - HEART FAILURE, UNSPECIFIED Qualifiers: Qualified Code(s): I50.9 - Heart failure, unspecified (9) End stage renal disease on dialysis Code(s): N18.6 - END STAGE RENAL DISEASE Z99.2 - DEPENDENCE ON RENAL DIALYSIS (10) Hepatic encephalopathy Code(s): K72.90 - HEPATIC FAILURE, UNSPECIFIED WITHOUT COMA (11) Hypothyroidism Code(s): E03.9 - HYPOTHYROIDISM, UNSPECIFIED (12) Lethargy Code(s): R53.83 - OTHER FATIGUE (13) Fluid excess Code(s): E87.70 - FLUID OVERLOAD, UNSPECIFIED
--- NOTE | 2016-09-07 09:01 | PN ---
Progress Note, Physician Chief Complaint: Not in distress Awake not complaining History of Present Illness: Patient was seen and examined. Awake and alert. Chart was reviewed Denies chest pain, SOB or palpitations Echocardiography dated 08/28/16 revealed RV dilatation with moderate to severe reduced RV function, LVH with normal LV size and function, severe TR, moderate MR - Current Medication List Current Medications: Active Medications Acetaminophen (Tylenol -) 325 mg PO QID [facility] Last Admin: 09/06/16 21:48 Dose: 325 mg Aspirin (Asa -) 81 mg PO DAILY [facility] Last Admin: 09/06/16 14:05 Dose: 81 mg Ergocalciferol (Drisdol -) 50,000 unit PO We@1000 [facility] Last Admin: 09/06/16 14:09 Dose: 50,000 unit Heparin Sodium (Porcine) (Heparin -) 5,000 unit SQ BID [facility] Last Admin: 09/06/16 21:50 Dose: 5,000 unit Pantoprazole Sodium (Protonix 40mg Ivpb (Pre-Docked)) 100 mls @ 200 mls/hr IVPB DAILY [facility] Last Admin: 09/06/16 14:04 Dose: 200 mls/hr Lactulose (Cephulac (Oral Use)) 10 gm PO BID [facility] Last Admin: 09/06/16 21:54 Dose: 10 gm Lactulose (Cephulac (Rectal Use)) 200 gm [place] Q6H PRN Last Admin: 08/30/16 15:49 Dose: 200 gm Levothyroxine Sodium (Synthroid Injection -) 55 mcg IM DAILY [facility] Last Admin: 09/06/16 14:08 Dose: 55 mcg Lidocaine (Lidoderm Patch -) 1 patch TP DAILY [facility] Last Admin: 09/06/16 14:09 Dose: 1 patch Magnesium Chloride (Slow-Mag -) 64 mg PO DAILY [facility] Last Admin: 09/06/16 14:07 Dose: 64 mg Midodrine (Proamatine -) 10 mg PO TID-MID [facility] Last Admin: 09/06/16 18:36 Dose: 10 mg Multivit/Ca Carb/B Cmplx/FA/Prenat (Nephro-Lexi -) 1 tablet PO DAILY [facility] Last Admin: 09/06/16 10:00 Dose: Not Given Mupirocin (Bactroban 2% Ointment -) 1 applic TP BID [facility] Last Admin: 09/06/16 21:49 Dose: 1 applic Sevelamer Carbonate (Renvela -) 800 mg PO TIDCM [facility] Last Admin: 09/06/16 18:41 Dose: Not Given - Objective Vital Signs: Vital Signs Temperature 97.8 F 09/07/16 06:00 Pulse Rate 76 09/07/16 06:00 Respiratory Rate 22 09/07/16 06:00 Blood Pressure 106/53 09/07/16 06:00 O2 Sat by Pulse Oximetry (%) 99 09/06/16 22:00 Neck: Yes: Supple Cardiovascular: Yes: Pulse Irregular, Murmur (2/6 SM), S1, S2 Respiratory: Yes: Diminished Gastrointestinal: Yes: Normal Bowel Sounds, Soft. No: Tenderness Edema: No Additional Findings/Remarks: - Review of Systems Constitutional: denies: Chills, Fever Cardiovascular: As noted above Respiratory: denies: Cough or Sputum Production Gastrointestinal: denies: Nausea, Vomiting, Diarrhea, Constipation or Abdominal Pain Neurological: No Symptoms Reported Labs: CBC, BMP 09/06/16 10:00 09/06/16 10:00 Assessment/Plan - Problems (1) Acute hypercapnic respiratory failure Code(s): J96.02 - ACUTE RESPIRATORY FAILURE WITH HYPERCAPNIA (2) Altered mental status Code(s): R41.82 - ALTERED MENTAL STATUS, UNSPECIFIED (3) End stage renal disease on dialysis Code(s): N18.6 - END STAGE RENAL DISEASE Z99.2 - DEPENDENCE ON RENAL DIALYSIS (4) Pleural effusion Code(s): J90 - PLEURAL EFFUSION, NOT ELSEWHERE CLASSIFIED (5) Acute on chronic diastolic (congestive) heart failure Code(s): I50.33 - ACUTE ON CHRONIC DIASTOLIC (CONGESTIVE) HEART FAILURE (6) Liver cirrhosis Code(s): K74.60 - UNSPECIFIED CIRRHOSIS OF LIVER (7) Hepatic encephalopathy Code(s): K72.90 - HEPATIC FAILURE, UNSPECIFIED WITHOUT COMA (8) Atrial fibrillation Code(s): I48.91 - UNSPECIFIED ATRIAL FIBRILLATION 1. Acute hypercapneic respiratory failure 2. Acute on Chronic LV Diastolic failure class III NYHA clasification LV failure 3. 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 Persistent atrial fibrillation [id number] score of 3 on no A/C 5. Hypothyroidism 6. ESLD with Hepatic Encephalopathy 7. ESRD on HD PLAN: 1. HD as per renal service 2. Continue Midodrine as hemodynamics require 3. Not an ideal A/C candidate related to to the above noted ESLD (End Stage Liver Disease) - on ASA 4. BIPAP as needed 5. DVT prophylaxis Further plans are to follow Macario Fisher MD
[2016-09-07] MEDS ORDERED: PT OWN MED DRAWER 7, Y5N ONE (09:50)
[2016-09-07] MEDS: PANTOPRAZOLE SODIUM 100 ML IVPB SCH (10:00)
[2016-09-07] MEDS: MAGNESIUM CL 64 MG TABLET.SA PO SCH (10:00)
[2016-09-07] MEDS: ACETAMINOPHEN 325 MG TABLET (FP) PO SCH ×5 (10:07→22:42)
[2016-09-07] MEDS: MUPIROCIN 2% TOPICAL OINTMENT 22 GM TUBE TP SCH ×2 (10:08→22:36)
[2016-09-07] MEDS: ASPIRIN 81 MG CHEWABLE TABLETS PO SCH (10:08)
[2016-09-07] MEDS: SEVELAMER CARBONATE 800 MG TAB (FP) PO SCH (10:08)
[2016-09-07] MEDS: LIDOCAINE 5% TOPICAL PATCH TP SCH (10:09)
[2016-09-07] MEDS: MIDODRINE HCL 5 MG TABLET PO SCH ×3 (10:09→19:28)
[2016-09-07] MEDS: LEVOTHYROXINE SODIUM 100 MCG VIAL IM SCH (10:26)
[2016-09-07] MEDS: HEPARIN NA (PORCINE) 5,000 UNITS/ML 1ML VIAL SQ SCH (11:03)
[2016-09-07] MEDS: LACTULOSE 20 GM/30 ML UDC (FOR ORAL USE ONLY) PO SCH ×2 (11:03→22:36)
--- NOTE | 2016-09-07 11:06 | PN ---
Progress Note (short form) - Note Progress Note: Renal Follow up for ESRD on HD Pt seen and examined at the bedside more awake today s/p dialysis yesterday with 2kg UF Vital Signs Temperature 97.8 F 09/07/16 06:00 Pulse Rate 76 09/07/16 06:00 Respiratory Rate 22 09/07/16 06:00 Blood Pressure 106/53 09/07/16 06:00 O2 Sat by Pulse Oximetry (%) 99 09/06/16 22:00 Intake & Output 09/04/16 09/05/16 09/06/16 09/07/16 23:59 23:59 23:59 23:59 Intake Total 0 10 620 Balance 0 10 620 Weight 118 lb 6.4 oz Gen: NAD on BIPAP CVS: RRR, No M/R Lungs: Dec BS throughout the lung mandujano Abd: soft NT/ND Ext: No edema, clubbing or cyanosis Access: NO thrill or bruit CBC, BMP 09/06/16 10:00 09/06/16 10:00 Current Medications Acetaminophen (Tylenol -) 325 mg PO QID [facility] Last Admin: 09/07/16 10:07 Dose: 325 mg Aspirin (Asa -) 81 mg PO DAILY [facility] Last Admin: 09/07/16 10:08 Dose: 81 mg Ergocalciferol (Drisdol -) 50,000 unit PO We@1000 [facility] Last Admin: 09/06/16 14:09 Dose: 50,000 unit Pantoprazole Sodium (Protonix 40mg Ivpb (Pre-Docked)) 100 mls @ 200 mls/hr IVPB DAILY [facility] Last Admin: 09/06/16 14:04 Dose: 200 mls/hr Lactulose (Cephulac (Oral Use)) 10 gm PO BID [facility] Last Admin: 09/06/16 21:54 Dose: 10 gm Lactulose (Cephulac (Rectal Use)) 200 gm [place] Q6H PRN Last Admin: 08/30/16 15:49 Dose: 200 gm Levothyroxine Sodium (Synthroid Injection -) 55 mcg IM DAILY [facility] Last Admin: 09/07/16 10:26 Dose: 55 mcg Lidocaine (Lidoderm Patch -) 1 patch TP DAILY [facility] Last Admin: 09/07/16 10:09 Dose: 1 patch Magnesium Chloride (Slow-Mag -) 64 mg PO DAILY [facility] Last Admin: 09/06/16 14:07 Dose: 64 mg Midodrine (Proamatine -) 10 mg PO TID-MID [facility] Last Admin: 09/07/16 10:09 Dose: 10 mg Multivit/Ca Carb/B Cmplx/FA/Prenat (Nephro-Lexi -) 1 tablet PO DAILY [facility] Last Admin: 09/06/16 10:00 Dose: Not Given Mupirocin (Bactroban 2% Ointment -) 1 applic TP BID [facility] Last Admin: 09/07/16 10:08 Dose: 1 applic Potassium Phos/Sodium Phos (Phos-Nak Packet -) 1 packet PO TID [facility] A/P This is a 86 year old Gentleman with PMhx of ESRD on HD (MWF), Chronic Cholecystitis, Dementia, DM, Hypertension, Afib with SOB and found to have extrensive pulmonary vascular congestion and hypoxia #ESRD with volume overload with chronic hypotension s/p dialysis yesterday no acute indication for dialysis today #AVG dysfunction No thrilll or buit heard in AVG Contacted Dr. Vora -> will plan for declott this afternoon after 4pm keep NPO for now #Renal Osteodystrophy Serum PHos is low d/c Renvela Start Neutraphos after pt is no longer NPO Jamir Wilson DO
[2016-09-07] MEDS: VITAMIN B COMP W-C 1 EA TABLET PO SCH (12:00)
--- NOTE | 2016-09-07 12:53 | PN ---
Progress Note, [employer] - Note Progress Note: Case reviewed with PMD, CCC, staff. On puree and honey thick liquid ON A TSP ONLY. Selected Entries 09/05/16 09/05/16 09/05/16 02:00 06:00 08:32 Lunch Supper Temperature 97.5 F L 98.2 F 97 F L 09/05/16 09/05/16 09/05/16 14:16 17:00 21:00 Lunch 100% Supper Temperature 97.4 F L 97.7 F 97.1 F L 09/05/16 09/06/16 09/06/16 21:16 01:00 05:00 Lunch Supper 50% Temperature 97.2 F L 97.2 F L Laboratory Tests 09/04/16 09/06/16 05:35 10:00 WBC 9.5 D 5.8 D Selected Entries 09/06/16 09/06/16 14:59 19:30 Breakfast 100% Lunch 100% Supper 50% Tolerating diet well, per staff Pending d/c to [facility]. Suggest sp/sw evaluation and tx at [facility].
--- NOTE | 2016-09-07 13:15 | PN ---
Progress Note (short form) - Note Progress Note: No NAD. No acute events overnight. Intake & Output 09/04/16 09/05/16 09/06/16 09/07/16 23:59 23:59 23:59 23:59 Intake Total 0 10 620 Balance 0 10 620 Weight 118 lb 6.4 oz Last Vital Signs Temp Pulse Resp BP Pulse Ox 97.8 F 78 18 86/50 100 09/07/16 10:00 09/07/16 10:00 09/07/16 10:00 09/07/16 10:00 09/07/16 09:00 Active Medications Acetaminophen (Tylenol -) 325 mg PO QID [facility] Last Admin: 09/07/16 10:07 Dose: 325 mg Aspirin (Asa -) 81 mg PO DAILY [facility] Last Admin: 09/07/16 10:08 Dose: 81 mg Ergocalciferol (Drisdol -) 50,000 unit PO We@1000 [facility] Last Admin: 09/06/16 14:09 Dose: 50,000 unit Pantoprazole Sodium (Protonix 40mg Ivpb (Pre-Docked)) 100 mls @ 200 mls/hr IVPB DAILY [facility] Last Admin: 09/06/16 14:04 Dose: 200 mls/hr Lactulose (Cephulac (Oral Use)) 10 gm PO BID [facility] Last Admin: 09/07/16 11:03 Dose: Not Given Lactulose (Cephulac (Rectal Use)) 200 gm [place] Q6H PRN Last Admin: 08/30/16 15:49 Dose: 200 gm Levothyroxine Sodium (Synthroid Injection -) 55 mcg IM DAILY [facility] Last Admin: 09/07/16 10:26 Dose: 55 mcg Lidocaine (Lidoderm Patch -) 1 patch TP DAILY [facility] Last Admin: 09/07/16 10:09 Dose: 1 patch Magnesium Chloride (Slow-Mag -) 64 mg PO DAILY [facility] Last Admin: 09/06/16 14:07 Dose: 64 mg Midodrine (Proamatine -) 10 mg PO TID-MID [facility] Last Admin: 09/07/16 10:09 Dose: 10 mg Multivit/Ca Carb/B Cmplx/FA/Prenat (Nephro-Lexi -) 1 tablet PO DAILY [facility] Last Admin: 09/06/16 10:00 Dose: Not Given Mupirocin (Bactroban 2% Ointment -) 1 applic TP BID [facility] Last Admin: 09/07/16 10:08 Dose: 1 applic Potassium Phos/Sodium Phos (Phos-Nak Packet -) 1 packet PO TID [facility] Constitutional: Yes: NAD, Thin Eyes: Yes: WNL HENT: Yes: WNL Neck: Yes: WNL Cardiovascular: Yes: Pulse Irregular, S1, S2 Respiratory: Yes: Diminished Gastrointestinal: Yes: Normal Bowel Sounds, Soft Extremities: Yes: WNL Edema: No Labs: Assessment/Plan Altered Mental Status resolved Acute Hypercapneic Respiratory Failure/bipap PRN ESRD on HD Acute on Chronic LV Diastolic Heart Failure Atrial Fibrillation RV Dysfunction Pleural Effusions Liver Cirrhosis Hepatic Encephalopathy/Elevated lactulose - Lactulose/rifaximin - BIPAP PRN - HD per renal - FiO2 to keep SpO2 >90% - DVT/GI prophylaxis Dr May
[2016-09-07 13:18] LABS: INR 1.12 (0.82-1.09); PROTHROMBIN TIME (PATIENT) 12.3 SEC (9.98-11.88)
[2016-09-07] MEDS: NAPH,MB-DB/K PH,MBDB POWDER PACKET PO SCH ×2 (14:00→22:36)
[2016-09-07] MEDS ORDERED: LIDOCAINE HCL 1%, 10 MG/ML (20ML VIAL) ONE (16:06)
[2016-09-07] MEDS ORDERED: HEPARIN NA (PORCINE) 5,000 UNITS/ML 1ML VIAL ONE ×2 (16:06→17:49)
[2016-09-07] MEDS ORDERED: LIDOCAINE HCL 1%, 10 MG/ML (20ML VIAL) IJ ONE ×3 (17:44)
--- NOTE | 2016-09-07 18:27 | OP ---
Operative Note - Note: Operative Date: 09/07/16 Pre-Operative Diagnosis: Thrombosed AV graft right arm Operation: Percutaneous thrombectomy right arm AV graft. Ultrasound guided cannulation x 2. 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 Stenosis 60% right subclavian vein Post-Operative Diagnosis: Same as Pre-op Surgeon: Chava Vora Anesthesiologist/ALMOND HULLER: Lj Steward Anesthesia: Fractional Estimated Blood Loss (mls): 20
--- NOTE | 2016-09-07 23:10 | PN ---
Progress Note (short form) - Note Progress Note: more alert today tolerating PO this am noted no Bruit to Access Vascular contacted / patient getting access revised Vital Signs Period Temp Pulse Resp BP Sys/Peck Pulse Ox Last 24 Hr 96.8 F-97.8 F 73-78 18-22 73-106/39-53 100 clinically improved physical therapy consulted for ADL's Case discussed with nephrology once access revised will resume HD schedule Will re evaluate for return to [facility] post HD Intake & Output 09/04/16 09/05/16 09/06/16 09/07/16 23:59 23:59 23:59 23:59 Intake Total 0 10 620 50 Balance 0 10 620 50 Weight 118 lb 6.4 oz CBC, BMP 09/06/16 10:00 09/06/16 10:00 Active Medications Acetaminophen (Tylenol -) 325 mg PO QID [facility] Last Admin: 09/07/16 22:42 Dose: 325 mg Aspirin (Asa -) 81 mg PO DAILY [facility] Last Admin: 09/07/16 10:08 Dose: 81 mg Ergocalciferol (Drisdol -) 50,000 unit PO We@1000 [facility] Last Admin: 09/06/16 14:09 Dose: 50,000 unit Pantoprazole Sodium (Protonix 40mg Ivpb (Pre-Docked)) 100 mls @ 200 mls/hr IVPB DAILY [facility] Last Admin: 09/07/16 10:00 Dose: Not Given Lactulose (Cephulac (Oral Use)) 10 gm PO BID [facility] Last Admin: 09/07/16 22:36 Dose: Not Given Lactulose (Cephulac (Rectal Use)) 200 gm [place] Q6H PRN Last Admin: 08/30/16 15:49 Dose: 200 gm Levothyroxine Sodium (Synthroid Injection -) 55 mcg IM DAILY [facility] Last Admin: 09/07/16 10:26 Dose: 55 mcg Lidocaine (Lidoderm Patch -) 1 patch TP DAILY [facility] Last Admin: 09/07/16 10:09 Dose: 1 patch Magnesium Chloride (Slow-Mag -) 64 mg PO DAILY [facility] Last Admin: 09/07/16 10:00 Dose: 64 mg Midodrine (Proamatine -) 10 mg PO TID-MID [facility] Last Admin: 09/07/16 19:28 Dose: Not Given Multivit/Ca Carb/B Cmplx/FA/Prenat (Nephro-Lexi -) 1 tablet PO DAILY [facility] Last Admin: 09/07/16 12:00 Dose: Not Given Mupirocin (Bactroban 2% Ointment -) 1 applic TP BID [facility] Last Admin: 09/07/16 22:36 Dose: 1 applic Potassium Phos/Sodium Phos (Phos-Nak Packet -) 1 packet PO TID [facility] Last Admin: 09/07/16 22:36 Dose: 1 packet This is a 86 year Male with 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 will re asses post HDfor possible d/c in am Problem List - Problems (1) Altered mental status Code(s): R41.82 - ALTERED MENTAL STATUS, UNSPECIFIED (2) Altered awareness, transient Code(s): R40.4 - TRANSIENT ALTERATION OF AWARENESS (3) Atrial fibrillation Code(s): I48.91 - UNSPECIFIED ATRIAL FIBRILLATION (4) Hypoxia Code(s): R09.02 - HYPOXEMIA (5) Acute on chronic diastolic (congestive) heart failure Code(s): I50.33 - ACUTE ON CHRONIC DIASTOLIC (CONGESTIVE) HEART FAILURE (6) Liver cirrhosis Code(s): K74.60 - UNSPECIFIED CIRRHOSIS OF LIVER (7) Pleural effusion Code(s): J90 - PLEURAL EFFUSION, NOT ELSEWHERE CLASSIFIED (8) CHF (congestive heart failure) Code(s): I50.9 - HEART FAILURE, UNSPECIFIED Qualifiers: Qualified Code(s): I50.9 - Heart failure, unspecified (9) End stage renal disease on dialysis Code(s): N18.6 - END STAGE RENAL DISEASE Z99.2 - DEPENDENCE ON RENAL DIALYSIS (10) Hepatic encephalopathy Code(s): K72.90 - HEPATIC FAILURE, UNSPECIFIED WITHOUT COMA (11) Hypothyroidism Code(s): E03.9 - HYPOTHYROIDISM, UNSPECIFIED (12) Lethargy Code(s): R53.83 - OTHER FATIGUE (13) Fluid excess Code(s): E87.70 - FLUID OVERLOAD, UNSPECIFIED
[2016-09-08] MEDS: NAPH,MB-DB/K PH,MBDB POWDER PACKET PO SCH ×3 (07:03→22:21)
[2016-09-08] MEDS ORDERED: PT OWN MED DRAWER 7, Y5N ONE ×2 (08:31→12:38)
--- NOTE | 2016-09-08 10:10 | PN ---
Progress Note, Physician History of Present Illness: Underwent percutaneous thrombectomy of thrombosed right arm AV graft right arm and venoplasty of innominate vein and right subclavan vein, nonverbal. - Current Medication List Current Medications: Active Medications Acetaminophen (Tylenol -) 325 mg PO QID [facility] Last Admin: 09/07/16 22:42 Dose: 325 mg Aspirin (Asa -) 81 mg PO DAILY [facility] Last Admin: 09/07/16 10:08 Dose: 81 mg Ergocalciferol (Drisdol -) 50,000 unit PO We@1000 [facility] Last Admin: 09/06/16 14:09 Dose: 50,000 unit Pantoprazole Sodium (Protonix 40mg Ivpb (Pre-Docked)) 100 mls @ 200 mls/hr IVPB DAILY [facility] Last Admin: 09/07/16 10:00 Dose: Not Given Lactulose (Cephulac (Oral Use)) 10 gm PO BID [facility] Last Admin: 09/07/16 22:36 Dose: Not Given Lactulose (Cephulac (Rectal Use)) 200 gm [place] Q6H PRN Last Admin: 08/30/16 15:49 Dose: 200 gm Levothyroxine Sodium (Synthroid Injection -) 55 mcg IM DAILY [facility] Last Admin: 09/07/16 10:26 Dose: 55 mcg Lidocaine (Lidoderm Patch -) 1 patch TP DAILY [facility] Last Admin: 09/07/16 10:09 Dose: 1 patch Magnesium Chloride (Slow-Mag -) 64 mg PO DAILY [facility] Last Admin: 09/07/16 10:00 Dose: 64 mg Midodrine (Proamatine -) 10 mg PO TID-MID [facility] Last Admin: 09/07/16 19:28 Dose: Not Given Multivit/Ca Carb/B Cmplx/FA/Prenat (Nephro-Lexi -) 1 tablet PO DAILY [facility] Last Admin: 09/07/16 12:00 Dose: Not Given Mupirocin (Bactroban 2% Ointment -) 1 applic TP BID [facility] Last Admin: 09/07/16 22:36 Dose: 1 applic Potassium Phos/Sodium Phos (Phos-Nak Packet -) 1 packet PO TID [facility] Last Admin: 09/08/16 07:03 Dose: Not Given - Objective Vital Signs: Vital Signs Temperature 97.0 F L 09/08/16 05:50 Pulse Rate 90 09/08/16 05:50 Respiratory Rate 20 09/08/16 05:50 Blood Pressure 80/40 09/08/16 05:50 O2 Sat by Pulse Oximetry (%) 94 L 09/07/16 21:00 Constitutional: Yes: No Distress, Calm Neck: Yes: Supple Cardiovascular: Yes: Pulse Irregular Respiratory: Yes: Regular, Diminished Gastrointestinal: Yes: Normal Bowel Sounds, Soft Edema: No Labs: CBC, BMP 09/06/16 10:00 09/06/16 10:00 INR, PTT INR 1.12 (0.82-1.09) 09/07/16 12:50 Assessment/Plan 08/28/3016 Echo: Severely dilated RV with mod-severe decrease RV fxn, normal LV size and fxn, mild cLVH, severe TR, mod MR, flattened septum c/w RV volume/ pressure overload, AYESHA with dilated IVC Problem List - Problems (1) Acute hypercapnic respiratory failure Code(s): J96.02 - ACUTE RESPIRATORY FAILURE WITH HYPERCAPNIA (2) Altered mental status Code(s): R41.82 - ALTERED MENTAL STATUS, UNSPECIFIED (3) End stage renal disease on dialysis Code(s): N18.6 - END STAGE RENAL DISEASE Z99.2 - DEPENDENCE ON RENAL DIALYSIS (4) Pleural effusion Code(s): J90 - PLEURAL EFFUSION, NOT ELSEWHERE CLASSIFIED (5) Acute on chronic diastolic (congestive) heart failure Code(s): I50.33 - ACUTE ON CHRONIC DIASTOLIC (CONGESTIVE) HEART FAILURE (6) Liver cirrhosis Code(s): K74.60 - UNSPECIFIED CIRRHOSIS OF LIVER (7) Hepatic encephalopathy Code(s): K72.90 - HEPATIC FAILURE, UNSPECIFIED WITHOUT COMA (8) Atrial fibrillation Code(s): I48.91 - UNSPECIFIED ATRIAL FIBRILLATION 1. Acute hypercapneic respiratory failure resolved 2. 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 Persistent afib [id number] score of 3 on no A/C 4. ESLD with Hepatic Encephalopathy 5. ESRD->HD 6. Hypothyroidism P: 1. Volume removal via HD 2. Midodrine 10 tid as hemodynamics require 3. Not ideal a/c candidate, on ASA 81 qd 4. NIPPV with titrate FiO2 to keep SpO2 >90%, BD 5. DVT/GI prophylaxis, Rifaximin and lactulose
--- NOTE | 2016-09-08 11:12 | PN ---
Progress Note, Physician History of Present Illness: PULMONARY SLEEPING ,-RESP DISTRESS,ON DIALYSIS. PT S/P THROMBECTOMY TOLERATED PROCEDURE WELL - Current Medication List Current Medications: Active Medications Acetaminophen (Tylenol -) 325 mg PO QID [facility] Last Admin: 09/07/16 22:42 Dose: 325 mg Aspirin (Asa -) 81 mg PO DAILY [facility] Last Admin: 09/07/16 10:08 Dose: 81 mg Ergocalciferol (Drisdol -) 50,000 unit PO We@1000 [facility] Last Admin: 09/06/16 14:09 Dose: 50,000 unit Pantoprazole Sodium (Protonix 40mg Ivpb (Pre-Docked)) 100 mls @ 200 mls/hr IVPB DAILY [facility] Last Admin: 09/07/16 10:00 Dose: Not Given Lactulose (Cephulac (Oral Use)) 10 gm PO BID [facility] Last Admin: 09/07/16 22:36 Dose: Not Given Lactulose (Cephulac (Rectal Use)) 200 gm [place] Q6H PRN Last Admin: 08/30/16 15:49 Dose: 200 gm Levothyroxine Sodium (Synthroid Injection -) 55 mcg IM DAILY [facility] Last Admin: 09/07/16 10:26 Dose: 55 mcg Lidocaine (Lidoderm Patch -) 1 patch TP DAILY [facility] Last Admin: 09/07/16 10:09 Dose: 1 patch Magnesium Chloride (Slow-Mag -) 64 mg PO DAILY [facility] Last Admin: 09/07/16 10:00 Dose: 64 mg Midodrine (Proamatine -) 10 mg PO TID-MID [facility] Last Admin: 09/07/16 19:28 Dose: Not Given Multivit/Ca Carb/B Cmplx/FA/Prenat (Nephro-Lexi -) 1 tablet PO DAILY [facility] Last Admin: 09/07/16 12:00 Dose: Not Given Mupirocin (Bactroban 2% Ointment -) 1 applic TP BID [facility] Last Admin: 09/07/16 22:36 Dose: 1 applic Potassium Phos/Sodium Phos (Phos-Nak Packet -) 1 packet PO TID [facility] Last Admin: 09/08/16 07:03 Dose: Not Given - Objective Vital Signs: Vital Signs Temperature 98.4 F 09/08/16 09:00 Pulse Rate 86 09/08/16 09:00 Respiratory Rate 22 09/08/16 09:00 Blood Pressure 85/49 09/08/16 09:00 O2 Sat by Pulse Oximetry (%) 100 09/08/16 09:00 Constitutional: Yes: Well Nourished, Other (SLEEPING) Eyes: Yes: WNL HENT: Yes: WNL Neck: Yes: Supple Cardiovascular: Yes: Pulse Irregular, S1, S2 Respiratory: Yes: Diminished Gastrointestinal: Yes: Normal Bowel Sounds, Soft Extremities: Yes: WNL Edema: No Labs: CBC, BMP 09/06/16 10:00 09/06/16 10:00 INR, PTT INR 1.12 (0.82-1.09) 09/07/16 12:50 Assessment/Plan Altered Mental Status resolved Acute Hypercapneic Respiratory Failure/bipap PRN ESRD on HD Acute on Chronic LV Diastolic Heart Failure Atrial Fibrillation RV Dysfunction Pleural Effusions Liver Cirrhosis Hepatic Encephalopathy/Elevated lactulose S/P Thrombectomy - Lactulose - BIPAP PRN - HD per renal - FiO2 to keep SpO2 >90% - DVT/GI prophylaxis DR HAGER
--- NOTE | 2016-09-08 11:12 | PN ---
Progress Note (short form) - Note Progress Note: Anesthesia postop note 86 y/o M s/p MAC anesthesia for thrombectomy/venoplasty POD#1, vss, sleeping but arousable, nurse reports pt had breakfast and followed commands earlier in the morning. No anesthesia complications.
[2016-09-08] MEDS: ALBUMIN HUMAN 25% 50 ML VIAL IVPB PRN ×4 (11:30→13:30)
--- NOTE | 2016-09-08 11:31 | PN ---
Progress Note (short form) - Note Progress Note: Renal Follow up for ESRD on HD Pt seen and examined during dialysis BP 80/40, Goal UF is 2L using low temp, Na modeling, no albumin used yet pt is lethagic s/p thrombectomy of AVG yesterday Vital Signs Temperature 98.4 F 09/08/16 09:00 Pulse Rate 86 09/08/16 09:00 Respiratory Rate 22 09/08/16 09:00 Blood Pressure 85/49 09/08/16 09:00 O2 Sat by Pulse Oximetry (%) 100 09/08/16 09:00 Intake & Output 09/05/16 09/06/16 09/07/16 09/08/16 23:59 23:59 23:59 23:59 Intake Total 10 620 50 Balance 10 620 50 Weight 289 lb 4 oz Gen: NAD on BIPAP CVS: RRR, No M/R Lungs: Dec BS throughout the lung mandujano Abd: soft NT/ND Ext: No edema, clubbing or cyanosis Access: NO thrill or bruit Todays labs pending Current Medications Acetaminophen (Tylenol -) 325 mg PO QID [facility] Last Admin: 09/07/16 22:42 Dose: 325 mg Aspirin (Asa -) 81 mg PO DAILY [facility] Last Admin: 09/07/16 10:08 Dose: 81 mg Ergocalciferol (Drisdol -) 50,000 unit PO We@1000 [facility] Last Admin: 09/06/16 14:09 Dose: 50,000 unit Pantoprazole Sodium (Protonix 40mg Ivpb (Pre-Docked)) 100 mls @ 200 mls/hr IVPB DAILY [facility] Last Admin: 09/07/16 10:00 Dose: Not Given Lactulose (Cephulac (Oral Use)) 10 gm PO BID [facility] Last Admin: 09/07/16 22:36 Dose: Not Given Lactulose (Cephulac (Rectal Use)) 200 gm [place] Q6H PRN Last Admin: 08/30/16 15:49 Dose: 200 gm Levothyroxine Sodium (Synthroid Injection -) 55 mcg IM DAILY [facility] Last Admin: 09/07/16 10:26 Dose: 55 mcg Lidocaine (Lidoderm Patch -) 1 patch TP DAILY [facility] Last Admin: 09/07/16 10:09 Dose: 1 patch Magnesium Chloride (Slow-Mag -) 64 mg PO DAILY [facility] Last Admin: 09/07/16 10:00 Dose: 64 mg Midodrine (Proamatine -) 10 mg PO TID-MID [facility] Last Admin: 09/07/16 19:28 Dose: Not Given Multivit/Ca Carb/B Cmplx/FA/Prenat (Nephro-Lexi -) 1 tablet PO DAILY [facility] Last Admin: 09/07/16 12:00 Dose: Not Given Mupirocin (Bactroban 2% Ointment -) 1 applic TP BID [facility] Last Admin: 09/07/16 22:36 Dose: 1 applic Potassium Phos/Sodium Phos (Phos-Nak Packet -) 1 packet PO TID [facility] Last Admin: 09/08/16 07:03 Dose: Not Given A/P This is a 86 year old Gentleman with PMhx of ESRD on HD (MWF), Chronic Cholecystitis, Dementia, DM, Hypertension, Afib with SOB and found to have extrensive pulmonary vascular congestion and hypoxia #ESRD with volume overload with chronic hypotension Tolerating dialysis well today Goal UF is 2L Using Albumin, Low Temp, Na modeling to maintain BP Dose all meds for intermittent HD #AVG dysfunction s/p Vascular Surgical intervention yesterday #Renal Osteodystroph/Hypophospahtemia Todays phos level is pending if > 2.5 can d/c neutraphos hold Renvela for now Discharge planning as per primary OK to be discharged from Renal perspective with continued outpatient dialysis Jamir Wilson DO
[2016-09-08 11:32] LABS: MCHC 31.3 g/dl (32.0-35.9); MEAN CELL VOLUME 102.4 fl (80-96); MEAN PLT VOLUME 10.1 fl (7.5-11.1); PLATELET COUNT 128 K/MM3 (134-434); RDW 18.1 % (11.9-15.9); WHITE BLOOD COUNT 7.4 K/mm3 (4.0-10.0)
[2016-09-08 11:46] LABS: CALCIUM 9.9 mg/dL (8.5-10.1); CREATININE 5.2 mg/dL (0.7-1.3)
[2016-09-08] MEDS: ACETAMINOPHEN 325 MG TABLET (FP) PO SCH ×4 (12:28→22:20)
[2016-09-08] MEDS: MIDODRINE HCL 5 MG TABLET PO SCH ×3 (12:30→17:48)
--- NOTE | 2016-09-08 13:24 | PN ---
Progress Note, [employer] - Note Progress Note: Case reviewed with PMD, CCC, staff. On puree and honey thick liquid ON A TSP ONLY. Selected Entries 09/05/16 09/05/16 09/05/16 02:00 06:00 08:32 Lunch Supper Temperature 97.5 F L 98.2 F 97 F L 09/05/16 09/05/16 09/05/16 14:16 17:00 21:00 Lunch 100% Supper Temperature 97.4 F L 97.7 F 97.1 F L 09/05/16 09/06/16 09/06/16 21:16 01:00 05:00 Lunch Supper 50% Temperature 97.2 F L 97.2 F L Laboratory Tests 09/04/16 09/06/16 05:35 10:00 WBC 9.5 D 5.8 D Selected Entries 09/06/16 09/06/16 14:59 19:30 Breakfast 100% Lunch 100% Supper 50% Selected Entries 09/07/16 09/07/16 09/07/16 02:00 06:00 10:00 Breakfast Lunch Temperature 97.2 F L 97.8 F 97.8 F 09/07/16 09/07/16 09/08/16 16:30 20:00 00:00 Breakfast 100% Lunch 100% Temperature 96.8 F L 97.0 F L 96.7 F L 09/08/16 09/08/16 09/08/16 05:50 09:00 11:05 Breakfast 25% Lunch Temperature 97.0 F L 98.4 F 09/08/16 11:41 Breakfast 75% Lunch Temperature Tolerating diet well, per staff Pending d/c to [place]. Suggest sp/sw evaluation and tx at [facility].
[2016-09-08] MEDS: ASPIRIN 81 MG CHEWABLE TABLETS PO SCH (13:59)
[2016-09-08] MEDS: MAGNESIUM CL 64 MG TABLET.SA PO SCH (13:59)
[2016-09-08] MEDS: PANTOPRAZOLE SODIUM 100 ML IVPB SCH (13:59)
[2016-09-08] MEDS: VITAMIN B COMP W-C 1 EA TABLET PO SCH (13:59)
[2016-09-08] MEDS: LEVOTHYROXINE SODIUM 100 MCG VIAL IM SCH (14:05)
[2016-09-08] MEDS: LIDOCAINE 5% TOPICAL PATCH TP SCH (14:05)
[2016-09-08] MEDS: LACTULOSE 20 GM/30 ML UDC (FOR ORAL USE ONLY) PO SCH ×3 (14:26→22:37)
[2016-09-08] MEDS: MUPIROCIN 2% TOPICAL OINTMENT 22 GM TUBE TP SCH ×2 (14:32→22:21)
[2016-09-08 14:41] LABS: CREATININE 1.5 mg/dL (0.7-1.3)
--- NOTE | 2016-09-08 23:29 | PN ---
Progress Note (short form) - Note Progress Note: patient scheduled for discharge today s/p HD arousable / tolerated PO well OOB to chair / interactive with nursing staff however has remained hypotensive at time of d/c Bp60/30 and later up to 70/30 discharge was deemed unstable and d/c delayed --- Vital Signs Period Temp Pulse Resp BP Sys/Peck Pulse Ox Last 24 Hr 96.7 F-98.4 F 77-94 18-22 59-97/28-49 93-100 Intake & Output 09/05/16 09/06/16 09/07/16 09/08/16 23:59 23:59 23:59 23:59 Intake Total 10 620 50 400 Balance 10 620 50 400 Weight 289 lb 4 oz drowsy / arousable / remains hypotensive neck supple heart irregular lungs grossly clear ext no edema / + bruit CBC, BMP 09/08/16 10:45 09/08/16 13:45 Active Medications Acetaminophen (Tylenol -) 325 mg PO QID [facility] Last Admin: 09/08/16 22:20 Dose: 325 mg Aspirin (Asa -) 81 mg PO DAILY [facility] Last Admin: 09/08/16 13:59 Dose: 81 mg Ergocalciferol (Drisdol -) 50,000 unit PO We@1000 [facility] Last Admin: 09/06/16 14:09 Dose: 50,000 unit Pantoprazole Sodium (Protonix 40mg Ivpb (Pre-Docked)) 100 mls @ 200 mls/hr IVPB DAILY [facility] Last Admin: 09/08/16 13:59 Dose: 200 mls/hr Lactulose (Cephulac (Rectal Use)) 200 gm ND Q6H PRN Last Admin: 08/30/16 15:49 Dose: 200 gm Lactulose (Cephulac (Oral Use)) 10 gm PO BID [facility] Last Admin: 09/08/16 22:37 Dose: Not Given Levothyroxine Sodium (Synthroid Injection -) 55 mcg IM DAILY [facility] Last Admin: 09/08/16 14:05 Dose: 55 mcg Lidocaine (Lidoderm Patch -) 1 patch TP DAILY [facility] Last Admin: 09/08/16 14:05 Dose: Not Given Magnesium Chloride (Slow-Mag -) 64 mg PO DAILY [facility] Last Admin: 09/08/16 13:59 Dose: Not Given Midodrine (Proamatine -) 10 mg PO TID-MID [facility] Last Admin: 09/08/16 17:48 Dose: 10 mg Multivit/Ca Carb/B Cmplx/FA/Prenat (Nephro-Lexi -) 1 tablet PO DAILY [facility] Last Admin: 09/08/16 13:59 Dose: 1 tablet Mupirocin (Bactroban 2% Ointment -) 1 applic TP BID [facility] Last Admin: 09/08/16 22:21 Dose: 1 applic Potassium Phos/Sodium Phos (Phos-Nak Packet -) 1 packet PO TID [facility] Last Admin: 09/08/16 22:21 Dose: 1 packet discharge delayed due to hypotenstion Problem List - Problems (1) Altered mental status Code(s): R41.82 - ALTERED MENTAL STATUS, UNSPECIFIED (2) Altered awareness, transient Code(s): R40.4 - TRANSIENT ALTERATION OF AWARENESS (3) Atrial fibrillation Code(s): I48.91 - UNSPECIFIED ATRIAL FIBRILLATION (4) Hypoxia Code(s): R09.02 - HYPOXEMIA (5) Acute on chronic diastolic (congestive) heart failure Code(s): I50.33 - ACUTE ON CHRONIC DIASTOLIC (CONGESTIVE) HEART FAILURE (6) Liver cirrhosis Code(s): K74.60 - UNSPECIFIED CIRRHOSIS OF LIVER (7) Pleural effusion Code(s): J90 - PLEURAL EFFUSION, NOT ELSEWHERE CLASSIFIED (8) CHF (congestive heart failure) Code(s): I50.9 - HEART FAILURE, UNSPECIFIED Qualifiers: Qualified Code(s): I50.9 - Heart failure, unspecified (9) End stage renal disease on dialysis Code(s): N18.6 - END STAGE RENAL DISEASE Z99.2 - DEPENDENCE ON RENAL DIALYSIS (10) Hepatic encephalopathy Code(s): K72.90 - HEPATIC FAILURE, UNSPECIFIED WITHOUT COMA (11) Hypothyroidism Code(s): E03.9 - HYPOTHYROIDISM, UNSPECIFIED (12) Lethargy Code(s): R53.83 - OTHER FATIGUE (13) Fluid excess Code(s): E87.70 - FLUID OVERLOAD, UNSPECIFIED
[2016-09-09] MEDS: NAPH,MB-DB/K PH,MBDB POWDER PACKET PO SCH ×3 (06:01→22:23)
--- NOTE | 2016-09-09 09:05 | OP ---
DATE OF OPERATION: 09/07/2016 SURGEON: Chava Babin MD PROCEDURE: Percutaneous thrombectomy, right arm AV graft, ultrasound-guided cannulation, venoplasty of innominate vein and right subclavian vein. PREOPERATIVE DIAGNOSIS: Thrombosed AV graft of right arm. POSTOPERATIVE DIAGNOSIS: Thrombosed AV graft of right arm. ANESTHESIA: Fractional sedation. ANESTHESIOLOGIST: Lj Steward MD OPERATIVE FINDINGS: The right upper arm AV graft was thrombosed. 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 OPERATIVE PROCEDURE: Following routine patient identification with site and sign verification, intravenous sedation was established. The right arm was prepped with ChloraPrep. Using real time duplex imaging, the distal aspect of the graft was identified and Xylocaine infiltrated over the graft. Under ultrasound guidance , a micropuncture needle was advanced into the graft lumen, and a micropuncture wire advanced proximally. The needle was exchanged for a 5-Malawian catheter and then an angle-tip Glidewire was passed up the graft into the axillary vein. An 8-Malawian sheath was placed over the wire. The patient was systemically heparinized. Berenstein catheter was advanced over the wire into the subclavian vein and venography performed. 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 Wire was passed through the stenoses, through the stent, and into the right atrium. A 10-mm angioplasty balloon was used to dilate the end of the stent at the site of stenosis, and an 8-mm balloon was used to dilate the subclavian vein stenosis. Following angioplasty, there was no residual stenosis seen. The balloon was removed. A No. 4 Rula catheter was then passed alongside the wire into the axillary vein and withdrawn to remove thrombus from the graft and vein. The thrombus was pulled back into the sheath. The sheath was pulled out of the arm, over the wire, flushed, and then replaced. This was performed several times until all thrombus was removed. Venography through the sheath revealed a patent graft with no residual thrombus. The graft was filled with heparin solution. The sheath was removed and the opening in the skin closed with a mattress suture of 3-0 nylon. The graft was then reimaged in the upper arm with ultrasound, and another 7-Malawian sheath was placed pointing towards the elbow. A wire and catheter were then advanced into the brachial artery proximal to the anastomosis, and angiography performed. This showed flow down the brachial artery with no evidence of stenosis. The catheter was removed and the wire replaced and then the Rula catheter used to clear the distal end of the graft and return arterial flow. Completion imaging revealed a patent graft with good flow. The sheath was removed and a nylon suture used to control bleeding. The patient was then taken to the recovery room in stable condition. CHAVA BABIN M.D. [id number] MTDD
[2016-09-09] MEDS ORDERED: PT OWN MED DRAWER 7, Y5N ONE (09:45)
[2016-09-09] MEDS: LIDOCAINE 5% TOPICAL PATCH TP SCH (09:46)
[2016-09-09] MEDS: LEVOTHYROXINE SODIUM 100 MCG VIAL IM SCH (09:47)
[2016-09-09] MEDS: ASPIRIN 81 MG CHEWABLE TABLETS PO SCH (09:47)
[2016-09-09] MEDS: ACETAMINOPHEN 325 MG TABLET (FP) PO SCH ×4 (09:47→22:17)
[2016-09-09] MEDS: MIDODRINE HCL 5 MG TABLET PO SCH ×3 (09:49→17:32)
[2016-09-09] MEDS: LACTULOSE 20 GM/30 ML UDC (FOR ORAL USE ONLY) PO SCH ×2 (09:49→22:23)
[2016-09-09] MEDS: MUPIROCIN 2% TOPICAL OINTMENT 22 GM TUBE TP SCH ×2 (09:49→22:22)
[2016-09-09] MEDS: MAGNESIUM CL 64 MG TABLET.SA PO SCH (09:49)
[2016-09-09] MEDS: PANTOPRAZOLE SODIUM 100 ML IVPB SCH (11:02)
--- NOTE | 2016-09-09 11:55 | PN ---
Progress Note (short form) - Note Progress Note: Renal Follow up for ESRD on HD Pt seen and examined at the bedside spoke with family at the bedside, they expressed their concerns that his BP is still running very low and that his overall status remains poor s/p HD yesterday could not be discharged because of low BP pt lethargic but arouseable Vital Signs Temperature 98 F 09/09/16 08:00 Pulse Rate 82 09/09/16 08:00 Respiratory Rate 16 09/09/16 08:00 Blood Pressure 64/40 09/09/16 08:00 O2 Sat by Pulse Oximetry (%) 94 L 09/08/16 22:38 Intake & Output 09/06/16 09/07/16 09/08/16 09/09/16 23:59 23:59 23:59 23:59 Intake Total 620 50 400 Balance 620 50 400 Weight 289 lb 4 oz 283 lb 6 oz Gen: NAD CVS: RRR, No M/R Lungs: Dec BS throughout the lung mandujano Abd: soft NT/ND Ext: No edema, clubbing or cyanosis Access: NO thrill or bruit CBC, BMP 09/08/16 10:45 09/08/16 13:45 Current Medications Acetaminophen (Tylenol -) 325 mg PO QID [facility] Last Admin: 09/09/16 09:47 Dose: 325 mg Aspirin (Asa -) 81 mg PO DAILY [facility] Last Admin: 09/09/16 09:47 Dose: 81 mg Ergocalciferol (Drisdol -) 50,000 unit PO We@1000 [facility] Last Admin: 09/06/16 14:09 Dose: 50,000 unit Pantoprazole Sodium (Protonix 40mg Ivpb (Pre-Docked)) 100 mls @ 200 mls/hr IVPB DAILY [facility] Last Admin: 09/08/16 13:59 Dose: 200 mls/hr Lactulose (Cephulac (Rectal Use)) 200 gm SD Q6H PRN Last Admin: 08/30/16 15:49 Dose: 200 gm Lactulose (Cephulac (Oral Use)) 10 gm PO BID [facility] Last Admin: 09/09/16 09:49 Dose: 10 gm Levothyroxine Sodium (Synthroid Injection -) 55 mcg IM DAILY [facility] Last Admin: 09/09/16 09:47 Dose: 55 mcg Lidocaine (Lidoderm Patch -) 1 patch TP DAILY [facility] Last Admin: 09/09/16 09:46 Dose: 1 patch Magnesium Chloride (Slow-Mag -) 64 mg PO DAILY [facility] Last Admin: 09/09/16 09:49 Dose: 64 mg Midodrine (Proamatine -) 10 mg PO TID-MID [facility] Last Admin: 09/09/16 09:49 Dose: 10 mg Multivit/Ca Carb/B Cmplx/FA/Prenat (Nephro-Lexi -) 1 tablet PO DAILY [facility] Last Admin: 09/08/16 13:59 Dose: 1 tablet Mupirocin (Bactroban 2% Ointment -) 1 applic TP BID [facility] Last Admin: 09/09/16 09:49 Dose: 1 applic Potassium Phos/Sodium Phos (Phos-Nak Packet -) 1 packet PO TID [facility] Last Admin: 09/09/16 06:01 Dose: 1 packet A/P This is a 86 year old Gentleman with PMhx of ESRD on HD (MWF), Chronic Cholecystitis, Dementia, DM, Hypertension, Afib with SOB and found to have extrensive pulmonary vascular congestion and hypoxia #ESRD with volume overload with chronic hypotension No indication for dialysis today Will re-evaluate on Sunday for further dialysis #AVG dysfunction s/p Vascular Surgical intervention After discussion with family whose wishes are moving toward comfort care given that Hardin status is not improving and the likelyhood that this will lead to multiple hospital admissions it was decided that we would continue his oral medciations including Midodrine. We will reaccess him on Sunday and if BP remains very low can access for hospice. No need for morphine at this time as pt is not in respiratory distress or pain. Check labs again on Sunday morning. Jamir Wilson DO
--- NOTE | 2016-09-09 12:41 | PN ---
Progress Note (short form) - Note Progress Note: Lethargic but arousable. Hypotensive. NAD. Intake & Output 09/06/16 09/07/16 09/08/16 09/09/16 23:59 23:59 23:59 23:59 Intake Total 620 50 400 Balance 620 50 400 Weight 289 lb 4 oz 283 lb 6 oz Last Vital Signs Temp Pulse Resp BP Pulse Ox 98 F 82 16 64/40 94 L 09/09/16 08:00 09/09/16 08:00 09/09/16 08:00 09/09/16 08:00 09/08/16 22:38 Active Medications Acetaminophen (Tylenol -) 325 mg PO QID [facility] Last Admin: 09/09/16 09:47 Dose: 325 mg Aspirin (Asa -) 81 mg PO DAILY [facility] Last Admin: 09/09/16 09:47 Dose: 81 mg Ergocalciferol (Drisdol -) 50,000 unit PO We@1000 [facility] Last Admin: 09/06/16 14:09 Dose: 50,000 unit Pantoprazole Sodium (Protonix 40mg Ivpb (Pre-Docked)) 100 mls @ 200 mls/hr IVPB DAILY [facility] Last Admin: 09/08/16 13:59 Dose: 200 mls/hr Lactulose (Cephulac (Rectal Use)) 200 gm [place] Q6H PRN Last Admin: 08/30/16 15:49 Dose: 200 gm Lactulose (Cephulac (Oral Use)) 10 gm PO BID [facility] Last Admin: 09/09/16 09:49 Dose: 10 gm Levothyroxine Sodium (Synthroid Injection -) 55 mcg IM DAILY [facility] Last Admin: 09/09/16 09:47 Dose: 55 mcg Lidocaine (Lidoderm Patch -) 1 patch TP DAILY [facility] Last Admin: 09/09/16 09:46 Dose: 1 patch Magnesium Chloride (Slow-Mag -) 64 mg PO DAILY [facility] Last Admin: 09/09/16 09:49 Dose: 64 mg Midodrine (Proamatine -) 10 mg PO TID-MID [facility] Last Admin: 09/09/16 09:49 Dose: 10 mg Multivit/Ca Carb/B Cmplx/FA/Prenat (Nephro-Lexi -) 1 tablet PO DAILY [facility] Last Admin: 09/08/16 13:59 Dose: 1 tablet Mupirocin (Bactroban 2% Ointment -) 1 applic TP BID [facility] Last Admin: 09/09/16 09:49 Dose: 1 applic Potassium Phos/Sodium Phos (Phos-Nak Packet -) 1 packet PO TID [facility] Last Admin: 09/09/16 06:01 Dose: 1 packet Constitutional: Yes: NAD, Thin Eyes: Yes: WNL HENT: Yes: WNL Neck: Yes: WNL Cardiovascular: Yes: Pulse Irregular, S1, S2 Respiratory: Yes: Diminished Gastrointestinal: Yes: Normal Bowel Sounds, Soft Extremities: Yes: WNL Edema: No Labs: Laboratory Results - last 24 hr 09/08/16 13:45 BUN 10 D Creatinine 1.5 H D Assessment/Plan Altered Mental Status resolved Acute Hypercapneic Respiratory Failure/bipap PRN ESRD on HD Acute on Chronic LV Diastolic Heart Failure Atrial Fibrillation RV Dysfunction Pleural Effusions Liver Cirrhosis Hepatic Encephalopathy/Elevated lactulose - Agree that hospice in this setting - O2 as needed - DVT/GI prophylaxis Dr May
[2016-09-09] MEDS: VITAMIN B COMP W-C 1 EA TABLET PO SCH (14:03)
--- NOTE | 2016-09-09 14:41 | PN ---
Progress Note (short form) - Note Progress Note: HCP/Family wants the patient to be switched to Dr. Muro service. Mr. Rangel has been a patient of Dr. Muro in the past. Patient accepted under our service as per HCP request. Vital Signs Period Temp Pulse Resp BP Sys/Peck Pulse Ox Last 24 Hr 97.0 F-98 F 82-91 16-22 61-89/27-45 93-94 drowsy / arousable / remains hypotensive neck supple heart irregular lungs grossly clear ext no edema / + bruit CBC, BMP 09/08/16 10:45 09/08/16 13:45 Active Medications Acetaminophen (Tylenol -) 325 mg PO QID [facility] Last Admin: 09/08/16 22:20 Dose: 325 mg Aspirin (Asa -) 81 mg PO DAILY [facility] Last Admin: 09/08/16 13:59 Dose: 81 mg Ergocalciferol (Drisdol -) 50,000 unit PO We@1000 [facility] Last Admin: 09/06/16 14:09 Dose: 50,000 unit Pantoprazole Sodium (Protonix 40mg Ivpb (Pre-Docked)) 100 mls @ 200 mls/hr IVPB DAILY [facility] Last Admin: 09/08/16 13:59 Dose: 200 mls/hr Lactulose (Cephulac (Rectal Use)) 200 gm [place] Q6H PRN Last Admin: 08/30/16 15:49 Dose: 200 gm Lactulose (Cephulac (Oral Use)) 10 gm PO BID [facility] Last Admin: 09/08/16 22:37 Dose: Not Given Levothyroxine Sodium (Synthroid Injection -) 55 mcg IM DAILY [facility] Last Admin: 09/08/16 14:05 Dose: 55 mcg Lidocaine (Lidoderm Patch -) 1 patch TP DAILY [facility] Last Admin: 09/08/16 14:05 Dose: Not Given Magnesium Chloride (Slow-Mag -) 64 mg PO DAILY [facility] Last Admin: 09/08/16 13:59 Dose: Not Given Midodrine (Proamatine -) 10 mg PO TID-MID [facility] Last Admin: 09/08/16 17:48 Dose: 10 mg Multivit/Ca Carb/B Cmplx/FA/Prenat (Nephro-Lexi -) 1 tablet PO DAILY [facility] Last Admin: 09/08/16 13:59 Dose: 1 tablet Mupirocin (Bactroban 2% Ointment -) 1 applic TP BID [facility] Last Admin: 09/08/16 22:21 Dose: 1 applic Potassium Phos/Sodium Phos (Phos-Nak Packet -) 1 packet PO TID [facility] Last Admin: 09/08/16 22:21 Dose: 1 packet discharge delayed due to hypotenstion Problem List - Problems (1) Altered mental status Code(s): R41.82 - ALTERED MENTAL STATUS, UNSPECIFIED (2) Altered awareness, transient Code(s): R40.4 - TRANSIENT ALTERATION OF AWARENESS (3) Atrial fibrillation Code(s): I48.91 - UNSPECIFIED ATRIAL FIBRILLATION (4) Hypoxia Code(s): R09.02 - HYPOXEMIA (5) Acute on chronic diastolic (congestive) heart failure Code(s): I50.33 - ACUTE ON CHRONIC DIASTOLIC (CONGESTIVE) HEART FAILURE (6) Liver cirrhosis Code(s): K74.60 - UNSPECIFIED CIRRHOSIS OF LIVER (7) Pleural effusion Code(s): J90 - PLEURAL EFFUSION, NOT ELSEWHERE CLASSIFIED (8) CHF (congestive heart failure) Code(s): I50.9 - HEART FAILURE, UNSPECIFIED Qualifiers: Qualified Code(s): I50.9 - Heart failure, unspecified (9) End stage renal disease on dialysis Code(s): N18.6 - END STAGE RENAL DISEASE Z99.2 - DEPENDENCE ON RENAL DIALYSIS (10) Hepatic encephalopathy Code(s): K72.90 - HEPATIC FAILURE, UNSPECIFIED WITHOUT COMA (11) Hypothyroidism Code(s): E03.9 - HYPOTHYROIDISM, UNSPECIFIED (12) Lethargy Code(s): R53.83 - OTHER FATIGUE (13) Fluid excess Code(s): E87.70 - FLUID OVERLOAD, UNSPECIFIED
[2016-09-09] MEDS ORDERED: guaiFENesin 200 MG/10 ML 10 ML UNIT-DOSE CUPS PO PRN (15:54)
[2016-09-09] MEDS: PANTOPRAZOLE 40 MG TABLET (FP) PO SCH (17:32)
[2016-09-10] MEDS: NAPH,MB-DB/K PH,MBDB POWDER PACKET PO SCH ×3 (06:13→22:02)
--- NOTE | 2016-09-10 08:35 | PN ---
Progress Note, Physician History of Present Illness: Arousable, hypotensive. - Current Medication List Current Medications: Active Medications Acetaminophen (Tylenol -) 325 mg PO QID [facility] Last Admin: 09/09/16 22:17 Dose: Not Given Aspirin (Asa -) 81 mg PO DAILY [facility] Last Admin: 09/09/16 09:47 Dose: 81 mg Ergocalciferol (Drisdol -) 50,000 unit PO We@1000 [facility] Last Admin: 09/06/16 14:09 Dose: 50,000 unit Guaifenesin (Robitussin -) 10 ml PO Q6H PRN Last Admin: 09/09/16 17:25 Dose: 10 ml Lactulose (Cephulac (Rectal Use)) 200 gm [place] Q6H PRN Last Admin: 08/30/16 15:49 Dose: 200 gm Lactulose (Cephulac (Oral Use)) 10 gm PO BID [facility] Last Admin: 09/09/16 22:23 Dose: Not Given Levothyroxine Sodium (Synthroid Injection -) 55 mcg IM DAILY [facility] Last Admin: 09/09/16 09:47 Dose: 55 mcg Lidocaine (Lidoderm Patch -) 1 patch TP DAILY [facility] Last Admin: 09/09/16 09:46 Dose: 1 patch Magnesium Chloride (Slow-Mag -) 64 mg PO DAILY [facility] Last Admin: 09/09/16 09:49 Dose: 64 mg Midodrine (Proamatine -) 10 mg PO TID-MID [facility] Last Admin: 09/09/16 17:32 Dose: 10 mg Multivit/Ca Carb/B Cmplx/FA/Prenat (Nephro-Lexi -) 1 tablet PO DAILY [facility] Last Admin: 09/09/16 14:03 Dose: Not Given Mupirocin (Bactroban 2% Ointment -) 1 applic TP BID [facility] Last Admin: 09/09/16 22:22 Dose: 1 applic Pantoprazole Sodium (Protonix -) 40 mg PO DAILY [facility] Last Admin: 09/09/16 17:32 Dose: 40 mg Potassium Phos/Sodium Phos (Phos-Nak Packet -) 1 packet PO TID [facility] Last Admin: 09/10/16 06:13 Dose: 1 packet - Objective Vital Signs: Vital Signs Temperature 97.2 F L 09/10/16 02:00 Pulse Rate 78 09/10/16 05:56 Respiratory Rate 20 09/10/16 05:56 Blood Pressure 80/40 09/10/16 05:56 O2 Sat by Pulse Oximetry (%) 98 09/09/16 21:00 Constitutional: Yes: No Distress, Calm, Thin Neck: Yes: Supple Cardiovascular: Yes: Regular Rate and Rhythm Respiratory: Yes: Regular, Diminished Gastrointestinal: Yes: Normal Bowel Sounds, Soft Edema: No Labs: CBC, BMP 09/08/16 10:45 09/08/16 13:45 INR, PTT INR 1.12 (0.82-1.09) 09/07/16 12:50 Assessment/Plan 08/28/3016 Echo: Severely dilated RV with mod-severe decrease RV fxn, normal LV size and fxn, mild cLVH, severe TR, mod MR, flattened septum c/w RV volume/ pressure overload, AYESHA with dilated IVC Problem List - Problems (1) Acute hypercapnic respiratory failure Code(s): J96.02 - ACUTE RESPIRATORY FAILURE WITH HYPERCAPNIA (2) Altered mental status Code(s): R41.82 - ALTERED MENTAL STATUS, UNSPECIFIED (3) End stage renal disease on dialysis Code(s): N18.6 - END STAGE RENAL DISEASE Z99.2 - DEPENDENCE ON RENAL DIALYSIS (4) Pleural effusion Code(s): J90 - PLEURAL EFFUSION, NOT ELSEWHERE CLASSIFIED (5) Acute on chronic diastolic (congestive) heart failure Code(s): I50.33 - ACUTE ON CHRONIC DIASTOLIC (CONGESTIVE) HEART FAILURE (6) Liver cirrhosis Code(s): K74.60 - UNSPECIFIED CIRRHOSIS OF LIVER (7) Hepatic encephalopathy Code(s): K72.90 - HEPATIC FAILURE, UNSPECIFIED WITHOUT COMA (8) Atrial fibrillation Code(s): I48.91 - UNSPECIFIED ATRIAL FIBRILLATION 1. Acute hypercapneic respiratory failure resolved 2. 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 Persistent afib [id number] score of 3 on no A/C 4. ESLD with Hepatic Encephalopathy 5. ESRD->HD 6. Hypothyroidism 7. Hypotension P: 1. Volume removal via HD as hemodynamics tolerate 2. Increase Midodrine 10 qid (max dose) 3. Not ideal a/c candidate, on ASA 81 qd 4. NIPPV with titrate FiO2 to keep SpO2 >90%, BD 5. Planned for hospice
[2016-09-10] MEDS: LACTULOSE 20 GM/30 ML UDC (FOR ORAL USE ONLY) PO SCH ×2 (10:38→22:02)
[2016-09-10] MEDS: PANTOPRAZOLE 40 MG TABLET (FP) PO SCH (10:39)
[2016-09-10] MEDS: VITAMIN B COMP W-C 1 EA TABLET PO SCH (10:39)
[2016-09-10] MEDS: MIDODRINE HCL 5 MG TABLET PO SCH ×4 (10:39→22:01)
[2016-09-10] MEDS: LIDOCAINE 5% TOPICAL PATCH TP SCH (10:39)
[2016-09-10] MEDS: ASPIRIN 81 MG CHEWABLE TABLETS PO SCH (10:39)
[2016-09-10] MEDS: MAGNESIUM CL 64 MG TABLET.SA PO SCH (10:40)
[2016-09-10] MEDS: MUPIROCIN 2% TOPICAL OINTMENT 22 GM TUBE TP SCH ×2 (10:40→22:02)
[2016-09-10] MEDS ORDERED: PT OWN MED DRAWER 7, Y5N ONE ×3 (10:43→22:04)
[2016-09-10] MEDS: LEVOTHYROXINE SODIUM 100 MCG VIAL IM SCH (10:56)
--- NOTE | 2016-09-10 14:06 | PN ---
Progress Note (short form) - Note Progress Note: Lethargic but arousable. Hypotensive. NAD. Intake & Output 09/07/16 09/08/16 09/09/16 09/10/16 23:59 23:59 23:59 23:59 Intake Total 50 400 420 200 Balance 50 400 420 200 Weight 289 lb 4 oz 283 lb 6 oz 128 lb 6.4 oz Last Vital Signs Temp Pulse Resp BP Pulse Ox 97.2 F L 91 H 23 69/36 98 09/10/16 02:00 09/10/16 10:00 09/10/16 10:00 09/10/16 10:00 09/09/16 21:00 Active Medications Acetaminophen (Tylenol -) 325 mg PO QID [facility] Last Admin: 09/09/16 22:17 Dose: Not Given Aspirin (Asa -) 81 mg PO DAILY [facility] Last Admin: 09/10/16 10:39 Dose: 81 mg Ergocalciferol (Drisdol -) 50,000 unit PO We@1000 [facility] Last Admin: 09/06/16 14:09 Dose: 50,000 unit Guaifenesin (Robitussin -) 10 ml PO Q6H PRN Last Admin: 09/09/16 17:25 Dose: 10 ml Lactulose (Cephulac (Rectal Use)) 200 gm [place] Q6H PRN Last Admin: 08/30/16 15:49 Dose: 200 gm Lactulose (Cephulac (Oral Use)) 10 gm PO BID [facility] Last Admin: 09/10/16 10:38 Dose: 10 gm Levothyroxine Sodium (Synthroid Injection -) 55 mcg IM DAILY [facility] Last Admin: 09/10/16 10:56 Dose: 55 mcg Lidocaine (Lidoderm Patch -) 1 patch TP DAILY [facility] Last Admin: 09/10/16 10:39 Dose: 1 patch Magnesium Chloride (Slow-Mag -) 64 mg PO DAILY [facility] Last Admin: 09/10/16 10:40 Dose: 64 mg Midodrine (Proamatine -) 10 mg PO QID [facility] Last Admin: 09/10/16 10:39 Dose: 10 mg Multivit/Ca Carb/B Cmplx/FA/Prenat (Nephro-Lexi -) 1 tablet PO DAILY [facility] Last Admin: 09/10/16 10:39 Dose: 1 tablet Mupirocin (Bactroban 2% Ointment -) 1 applic TP BID [facility] Last Admin: 09/10/16 10:40 Dose: 1 applic Pantoprazole Sodium (Protonix -) 40 mg PO DAILY [facility] Last Admin: 09/10/16 10:39 Dose: 40 mg Potassium Phos/Sodium Phos (Phos-Nak Packet -) 1 packet PO TID [facility] Last Admin: 09/10/16 06:13 Dose: 1 packet Constitutional: Yes: NAD, Thin Eyes: Yes: WNL HENT: Yes: WNL Neck: Yes: WNL Cardiovascular: Yes: Pulse Irregular, S1, S2 Respiratory: Yes: Diminished Gastrointestinal: Yes: Normal Bowel Sounds, Soft Extremities: Yes: WNL Edema: No Labs: Assessment/Plan Altered Mental Status resolved Acute Hypercapneic Respiratory Failure/bipap PRN ESRD on HD Acute on Chronic LV Diastolic Heart Failure Atrial Fibrillation RV Dysfunction Pleural Effusions Liver Cirrhosis Hepatic Encephalopathy/Elevated lactulose - Hospice in this setting is appropriate - O2 as needed - DVT/GI prophylaxis Dr May
--- NOTE | 2016-09-10 15:07 | PN ---
Progress Note (short form) - Note Progress Note: Patient seen and examined. Much more alert, awake as compared to yesterday. Ate almost all of the breakfast and had fluids offered to him. No acute event overnight. Afebrile. Remains hypotensive. O/E: Not in acute distress Vital Signs Period Temp Pulse Resp BP Sys/Peck Pulse Ox Last 24 Hr 97.2 F-98.0 F 78-91 18-23 62-80/28-45 98 heart irregular lungs grossly clear ext no edema / + bruit CBC, BMP 09/08/16 10:45 09/08/16 13:45 Active Medications Acetaminophen (Tylenol -) 325 mg PO QID [facility] Last Admin: 09/08/16 22:20 Dose: 325 mg Aspirin (Asa -) 81 mg PO DAILY [facility] Last Admin: 09/08/16 13:59 Dose: 81 mg Ergocalciferol (Drisdol -) 50,000 unit PO We@1000 [facility] Last Admin: 09/06/16 14:09 Dose: 50,000 unit Pantoprazole Sodium (Protonix 40mg Ivpb (Pre-Docked)) 100 mls @ 200 mls/hr IVPB DAILY [facility] Last Admin: 09/08/16 13:59 Dose: 200 mls/hr Lactulose (Cephulac (Rectal Use)) 200 gm SD Q6H PRN Last Admin: 08/30/16 15:49 Dose: 200 gm Lactulose (Cephulac (Oral Use)) 10 gm PO BID [facility] Last Admin: 09/08/16 22:37 Dose: Not Given Levothyroxine Sodium (Synthroid Injection -) 55 mcg IM DAILY [facility] Last Admin: 09/08/16 14:05 Dose: 55 mcg Lidocaine (Lidoderm Patch -) 1 patch TP DAILY [facility] Last Admin: 09/08/16 14:05 Dose: Not Given Magnesium Chloride (Slow-Mag -) 64 mg PO DAILY [facility] Last Admin: 09/08/16 13:59 Dose: Not Given Midodrine (Proamatine -) 10 mg PO TID-MID [facility] Last Admin: 09/08/16 17:48 Dose: 10 mg Multivit/Ca Carb/B Cmplx/FA/Prenat (Nephro-Lexi -) 1 tablet PO DAILY [facility] Last Admin: 09/08/16 13:59 Dose: 1 tablet Mupirocin (Bactroban 2% Ointment -) 1 applic TP BID [facility] Last Admin: 09/08/16 22:21 Dose: 1 applic Potassium Phos/Sodium Phos (Phos-Nak Packet -) 1 packet PO TID [facility] Last Admin: 09/08/16 22:21 Dose: 1 packet discharge delayed due to hypotenstion Problem List - Problems (1) Altered mental status Code(s): R41.82 - ALTERED MENTAL STATUS, UNSPECIFIED (2) Altered awareness, transient Code(s): R40.4 - TRANSIENT ALTERATION OF AWARENESS (3) Atrial fibrillation Code(s): I48.91 - UNSPECIFIED ATRIAL FIBRILLATION (4) Hypoxia Code(s): R09.02 - HYPOXEMIA (5) Acute on chronic diastolic (congestive) heart failure Code(s): I50.33 - ACUTE ON CHRONIC DIASTOLIC (CONGESTIVE) HEART FAILURE (6) Liver cirrhosis Code(s): K74.60 - UNSPECIFIED CIRRHOSIS OF LIVER (7) Pleural effusion Code(s): J90 - PLEURAL EFFUSION, NOT ELSEWHERE CLASSIFIED (8) CHF (congestive heart failure) Code(s): I50.9 - HEART FAILURE, UNSPECIFIED Qualifiers: Qualified Code(s): I50.9 - Heart failure, unspecified (9) End stage renal disease on dialysis Code(s): N18.6 - END STAGE RENAL DISEASE Z99.2 - DEPENDENCE ON RENAL DIALYSIS (10) Hepatic encephalopathy Code(s): K72.90 - HEPATIC FAILURE, UNSPECIFIED WITHOUT COMA (11) Hypothyroidism Code(s): E03.9 - HYPOTHYROIDISM, UNSPECIFIED (12) Lethargy Code(s): R53.83 - OTHER FATIGUE (13) Fluid excess Code(s): E87.70 - FLUID OVERLOAD, UNSPECIFIED A/P: - Altered Mental Status: Improved as compared to yesterday. - Hypotension: Persist. - Acute Hypercapneic Respiratory Failure: Bipap as needed. - ESRD on HD - Acute on Chronic LV Diastolic Heart Failure - Atrial Fibrillation Discussed in detail with the HCP. Agree with hospice.
[2016-09-10] MEDS: ACETAMINOPHEN 325 MG TABLET (FP) PO SCH ×3 (15:50→22:01)
[2016-09-10] MEDS ORDERED: LACTULOSE 20 GM/30 ML UDC (FOR RECTAL USE ONLY) PR PRN (16:11)
[2016-09-11] MEDS ORDERED: PT OWN MED DRAWER 7, Y5N ONE ×2 (05:58→09:21)
[2016-09-11] MEDS: NAPH,MB-DB/K PH,MBDB POWDER PACKET PO SCH (06:32)
[2016-09-11] MEDS ORDERED: LEVOTHYROXINE SODIUM 100 MCG VIAL IM SCH (07:00)
[2016-09-11 07:11] LABS: BASOPHIL 0.3 % (0-2.0); EOSINOPHIL 2.1 % (0-4.5); MCH 32.9 pg (25.7-33.7); MCHC 32.2 g/dl (32.0-35.9); MEAN CELL VOLUME 102.2 fl (80-96); MEAN PLT VOLUME 9.5 fl (7.5-11.1); PLATELET COUNT 147 K/MM3 (134-434); RDW 17.9 % (11.9-15.9); WHITE BLOOD COUNT 9.2 K/mm3 (4.0-10.0)
[2016-09-11 07:38] LABS: CALCIUM 9.6 mg/dL (8.5-10.1); CREATININE 6.5 mg/dL (0.7-1.3)
[2016-09-11] MEDS: LACTULOSE 20 GM/30 ML UDC (FOR ORAL USE ONLY) PO SCH (09:24)
[2016-09-11] MEDS: ACETAMINOPHEN 325 MG TABLET (FP) PO SCH ×3 (09:24→18:05)
[2016-09-11] MEDS: LIDOCAINE 5% TOPICAL PATCH TP SCH (09:25)
[2016-09-11] MEDS: MIDODRINE HCL 5 MG TABLET PO SCH (09:25)
[2016-09-11] MEDS: PANTOPRAZOLE 40 MG TABLET (FP) PO SCH (09:26)
[2016-09-11] MEDS: MUPIROCIN 2% TOPICAL OINTMENT 22 GM TUBE TP SCH (09:41)
[2016-09-11] MEDS ORDERED: MAGNESIUM CL 64 MG TABLET.SA PO SCH (10:00)
[2016-09-11] MEDS ORDERED: ASPIRIN 81 MG CHEWABLE TABLETS PO SCH (10:00)
[2016-09-11] MEDS ORDERED: VITAMIN B COMP W-C 1 EA TABLET PO SCH (10:00)
--- NOTE | 2016-09-11 10:10 | PN ---
Progress Note (short form) - Note Progress Note: Renal Follow up for ESRD on HD Pt seen and examined at the bedside pt is awake and alert BP is very low denies any sob, chest pain Vital Signs Temperature 98.2 F 09/11/16 09:02 Pulse Rate 69 09/11/16 09:02 Respiratory Rate 20 09/11/16 09:02 Blood Pressure 65/36 09/11/16 09:02 O2 Sat by Pulse Oximetry (%) 97 09/10/16 21:00 Intake & Output 09/08/16 09/09/16 09/10/16 09/11/16 23:59 23:59 23:59 23:59 Intake Total 400 420 350 Balance 400 420 350 Weight 283 lb 6 oz 128 lb 6.4 oz 131 lb 9.6 oz Gen: NAD CVS: RRR, No M/R Lungs: Dec BS throughout the lung mandujano Abd: soft NT/ND Ext: No edema, clubbing or cyanosis Access: NO thrill or bruit CBC, BMP 09/11/16 05:35 09/11/16 05:35 Current Medications Acetaminophen (Tylenol -) 325 mg PO QID [facility] Last Admin: 09/11/16 09:24 Dose: 325 mg Aspirin (Asa -) 81 mg PO DAILY [facility] Last Admin: 09/11/16 09:24 Dose: 81 mg Ergocalciferol (Drisdol -) 50,000 unit PO We@1000 [facility] Guaifenesin (Robitussin -) 10 ml PO Q6H PRN Last Admin: 09/09/16 17:25 Dose: 10 ml Lactulose (Cephulac (Oral Use)) 10 gm PO BID [facility] Last Admin: 09/11/16 09:24 Dose: 10 gm Lactulose (Cephulac (Rectal Use)) 200 gm [place] Q6H PRN Levothyroxine Sodium (Synthroid Injection -) 55 mcg IM DAILY@0700 [facility] Last Admin: 09/11/16 06:31 Dose: 55 mcg Lidocaine (Lidoderm Patch -) 1 patch TP DAILY [facility] Last Admin: 09/11/16 09:25 Dose: 1 patch Magnesium Chloride (Slow-Mag -) 64 mg PO DAILY [facility] Last Admin: 09/11/16 09:26 Dose: 64 mg Midodrine (Proamatine -) 10 mg PO QID [facility] Last Admin: 09/11/16 09:25 Dose: 10 mg Multivit/Ca Carb/B Cmplx/FA/Prenat (Nephro-Lexi -) 1 tablet PO DAILY [facility] Last Admin: 09/11/16 09:25 Dose: 1 tablet Mupirocin (Bactroban 2% Ointment -) 1 applic TP BID [facility] Last Admin: 09/11/16 09:41 Dose: 1 applic Pantoprazole Sodium (Protonix -) 40 mg PO DAILY [facility] Last Admin: 09/11/16 09:26 Dose: 40 mg Potassium Phos/Sodium Phos (Phos-Nak Packet -) 1 packet PO TID [facility] Last Admin: 09/11/16 06:32 Dose: 1 packet A/P This is a 86 year old Gentleman with PMhx of ESRD on HD (MWF), Chronic Cholecystitis, Dementia, DM, Hypertension, Afib with SOB and found to have extrensive pulmonary vascular congestion and hypoxia #ESRD with volume overload with chronic hypotension BP is very low today and thus not appropriate for dialysis Agree with plan for hospice care given chronic hypotension Called and left message for HCP regarding discontinuation of dialysis Will discuss with family and PMD Jamir Wilson DO
--- NOTE | 2016-09-11 10:35 | PN ---
Progress Note, Physician History of Present Illness: More interactive today, remains hypotensive despite max dose midodrine. - Current Medication List Current Medications: Active Medications Acetaminophen (Tylenol -) 325 mg PO QID [facility] Last Admin: 09/11/16 09:24 Dose: 325 mg Aspirin (Asa -) 81 mg PO DAILY [facility] Last Admin: 09/11/16 09:24 Dose: 81 mg Ergocalciferol (Drisdol -) 50,000 unit PO We@1000 [facility] Guaifenesin (Robitussin -) 10 ml PO Q6H PRN Last Admin: 09/09/16 17:25 Dose: 10 ml Lactulose (Cephulac (Oral Use)) 10 gm PO BID [facility] Last Admin: 09/11/16 09:24 Dose: 10 gm Lactulose (Cephulac (Rectal Use)) 200 gm [place] Q6H PRN Levothyroxine Sodium (Synthroid Injection -) 55 mcg IM DAILY@0700 [facility] Last Admin: 09/11/16 06:31 Dose: 55 mcg Lidocaine (Lidoderm Patch -) 1 patch TP DAILY [facility] Last Admin: 09/11/16 09:25 Dose: 1 patch Magnesium Chloride (Slow-Mag -) 64 mg PO DAILY [facility] Last Admin: 09/11/16 09:26 Dose: 64 mg Midodrine (Proamatine -) 10 mg PO QID [facility] Last Admin: 09/11/16 09:25 Dose: 10 mg Multivit/Ca Carb/B Cmplx/FA/Prenat (Nephro-Lexi -) 1 tablet PO DAILY [facility] Last Admin: 09/11/16 09:25 Dose: 1 tablet Mupirocin (Bactroban 2% Ointment -) 1 applic TP BID [facility] Last Admin: 09/11/16 09:41 Dose: 1 applic Pantoprazole Sodium (Protonix -) 40 mg PO DAILY [facility] Last Admin: 09/11/16 09:26 Dose: 40 mg Potassium Phos/Sodium Phos (Phos-Nak Packet -) 1 packet PO TID [facility] Last Admin: 09/11/16 06:32 Dose: 1 packet - Objective Vital Signs: Vital Signs Temperature 98.2 F 09/11/16 09:02 Pulse Rate 69 09/11/16 09:02 Respiratory Rate 20 09/11/16 09:02 Blood Pressure 65/36 09/11/16 09:02 O2 Sat by Pulse Oximetry (%) 97 09/10/16 21:00 Constitutional: Yes: No Distress, Calm, Cachectic Neck: Yes: Supple Cardiovascular: Yes: Pulse Irregular Respiratory: Yes: Regular, Diminished Gastrointestinal: Yes: Normal Bowel Sounds, Soft Edema: No Labs: CBC, BMP 09/11/16 05:35 09/11/16 05:35 INR, PTT INR 1.12 (0.82-1.09) 09/07/16 12:50 Assessment/Plan 08/28/3016 Echo: Severely dilated RV with mod-severe decrease RV fxn, normal LV size and fxn, mild cLVH, severe TR, mod MR, flattened septum c/w RV volume/ pressure overload, AYESHA with dilated IVC Problem List - Problems (1) Acute hypercapnic respiratory failure Code(s): J96.02 - ACUTE RESPIRATORY FAILURE WITH HYPERCAPNIA (2) Altered mental status Code(s): R41.82 - ALTERED MENTAL STATUS, UNSPECIFIED (3) End stage renal disease on dialysis Code(s): N18.6 - END STAGE RENAL DISEASE Z99.2 - DEPENDENCE ON RENAL DIALYSIS (4) Pleural effusion Code(s): J90 - PLEURAL EFFUSION, NOT ELSEWHERE CLASSIFIED (5) Acute on chronic diastolic (congestive) heart failure Code(s): I50.33 - ACUTE ON CHRONIC DIASTOLIC (CONGESTIVE) HEART FAILURE (6) Liver cirrhosis Code(s): K74.60 - UNSPECIFIED CIRRHOSIS OF LIVER (7) Hepatic encephalopathy Code(s): K72.90 - HEPATIC FAILURE, UNSPECIFIED WITHOUT COMA (8) Atrial fibrillation Code(s): I48.91 - UNSPECIFIED ATRIAL FIBRILLATION 1. Acute hypercapneic respiratory failure resolved 2. 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 Persistent afib [id number] score of 3 on no A/C 4. ESLD with Hepatic Encephalopathy 5. ESRD->HD 6. Hypothyroidism 7. Hypotension P: 1. Volume removal via HD as hemodynamics tolerate 2. Increased Midodrine 10 qid (max dose) 3. Not ideal a/c candidate, on ASA 81 qd 4. NIPPV with titrate FiO2 to keep SpO2 >90%, BD 5. Planned for hospice
--- NOTE | 2016-09-11 11:08 | PN ---
Progress Note, Physician History of Present Illness: PULMONARY ALERT,FEELING BETTER,-RESP DISTRESS,HYPOTENSIVE - Current Medication List Current Medications: Active Medications Acetaminophen (Tylenol -) 325 mg PO QID [facility] Last Admin: 09/11/16 09:24 Dose: 325 mg Aspirin (Asa -) 81 mg PO DAILY [facility] Last Admin: 09/11/16 09:24 Dose: 81 mg Ergocalciferol (Drisdol -) 50,000 unit PO We@1000 [facility] Guaifenesin (Robitussin -) 10 ml PO Q6H PRN Last Admin: 09/09/16 17:25 Dose: 10 ml Lactulose (Cephulac (Oral Use)) 10 gm PO BID [facility] Last Admin: 09/11/16 09:24 Dose: 10 gm Lactulose (Cephulac (Rectal Use)) 200 gm [place] Q6H PRN Levothyroxine Sodium (Synthroid Injection -) 55 mcg IM DAILY@0700 [facility] Last Admin: 09/11/16 06:31 Dose: 55 mcg Lidocaine (Lidoderm Patch -) 1 patch TP DAILY [facility] Last Admin: 09/11/16 09:25 Dose: 1 patch Magnesium Chloride (Slow-Mag -) 64 mg PO DAILY [facility] Last Admin: 09/11/16 09:26 Dose: 64 mg Midodrine (Proamatine -) 10 mg PO QID [facility] Last Admin: 09/11/16 09:25 Dose: 10 mg Multivit/Ca Carb/B Cmplx/FA/Prenat (Nephro-Lexi -) 1 tablet PO DAILY [facility] Last Admin: 09/11/16 09:25 Dose: 1 tablet Mupirocin (Bactroban 2% Ointment -) 1 applic TP BID [facility] Last Admin: 09/11/16 09:41 Dose: 1 applic Pantoprazole Sodium (Protonix -) 40 mg PO DAILY [facility] Last Admin: 09/11/16 09:26 Dose: 40 mg Potassium Phos/Sodium Phos (Phos-Nak Packet -) 1 packet PO TID [facility] Last Admin: 09/11/16 06:32 Dose: 1 packet - Objective Vital Signs: Vital Signs Temperature 98.2 F 09/11/16 09:02 Pulse Rate 69 09/11/16 09:02 Respiratory Rate 20 09/11/16 09:02 Blood Pressure 65/36 09/11/16 09:02 O2 Sat by Pulse Oximetry (%) 97 09/10/16 21:00 Constitutional: Yes: Calm, Thin Eyes: Yes: WNL HENT: Yes: WNL Neck: Yes: WNL Cardiovascular: Yes: Pulse Irregular, S1, S2 Respiratory: Yes: Rales (ARABELLA RALES) Gastrointestinal: Yes: Normal Bowel Sounds, Soft Extremities: Yes: WNL Edema: No Labs: CBC, BMP 09/11/16 05:35 09/11/16 05:35 INR, PTT INR 1.12 (0.82-1.09) 09/07/16 12:50 Assessment/Plan Assessment/Plan Altered Mental Status resolved Acute Hypercapneic Respiratory Failure/bipap PRN ESRD on HD Acute on Chronic LV Diastolic Heart Failure Atrial Fibrillation RV Dysfunction Pleural Effusions Liver Cirrhosis Hepatic Encephalopathy/Elevated lactulose - Hospice care - O2 as needed - DVT/GI prophylaxis DR HAGER
--- NOTE | 2016-09-11 13:21 | PN ---
Progress Note, [facility] - Note Progress Note: Consultation received 09/10/16. Pt seen at bedside for follow up to MBS with LLiss 08/08/16 with a recommendation for dysphagia puree, honey thicken liquids via spoon and magic cup. Pt just completed consuming lunch during this eval. Family members present and provided information about consuming this meal. Pt was verbal and cooperative. Chart review indicates pt is consuming more than 50 % of all meals with fair to adequate intake. Family members present reported that he prefers the magic cup but will consume pureed and liquids. social worker psychiatricDIMITRI Jaimes reports no s/s of aspiration during and/or after meals at this time. Recommendations: Continue dysphagia puree and HONEY thicken liquids via teaspoon as tolerated. Observe standard aspiration precautions. Position upright was meal and 30-60 post meal for safety. Crush meds in applesauce. Monitor pulmonary status and nutritional intake. Results given verbally to career consultantDIMITRI Jaimes and to pcp via chart. m
[2016-09-11] MEDS ORDERED: LORAZEPAM CARPU-JECT 2 MG/ML DISP.SYRIN IVPUSH PRN (14:28)
[2016-09-11] MEDS ORDERED: SCOPOLAMINE HYDROBROMIDE 1 PATCH PATCH.TD72 TD SCH (15:30)
--- NOTE | 2016-09-11 15:43 | PN ---
Progress Note, Physician Chief Complaint: Unable to obtain - Current Medication List Current Medications: Active Medications Acetaminophen (Tylenol -) 325 mg PO QID [facility] Last Admin: 09/11/16 09:24 Dose: 325 mg Diphenhydramine HCl (Benadryl Injection -) 12.5 mg IVPUSH Q4H PRN PRN Reason: FOR ITCHING Guaifenesin (Robitussin -) 10 ml PO Q6H PRN Last Admin: 09/09/16 17:25 Dose: 10 ml Lidocaine (Lidoderm Patch -) 1 patch TP DAILY [facility] Last Admin: 09/11/16 09:25 Dose: 1 patch Lorazepam (Ativan Injection -) 1 mg IVPUSH Q6H PRN PRN Reason: ANXIETY Morphine Sulfate (Morphine Injection -) 2 mg IVPUSH Q3H PRN PRN Reason: PAIN Mupirocin (Bactroban 2% Ointment -) 1 applic TP BID [facility] Last Admin: 09/11/16 09:41 Dose: 1 applic Pantoprazole Sodium (Protonix -) 40 mg PO DAILY [facility] Last Admin: 09/11/16 09:26 Dose: 40 mg Scopolamine HBr (Transderm-Scop -) 1 patch TD Q72H [facility] - Objective Vital Signs: Vital Signs Temperature 96.5 F L 09/11/16 14:17 Pulse Rate 70 09/11/16 14:17 Respiratory Rate 20 09/11/16 14:17 Blood Pressure 77/40 09/11/16 14:17 O2 Sat by Pulse Oximetry (%) 97 09/11/16 09:00 Constitutional: Yes: No Distress, Calm, Other (confused) Cardiovascular: Yes: Regular Rate and Rhythm. No: Gallop, Murmur, Rub Respiratory: Yes: Regular, On Nasal O2, Rhonchi. No: Rales, Wheezes Gastrointestinal: Yes: Normal Bowel Sounds, Soft. No: Distention, Tenderness Extremities: Yes: WNL Edema: No Labs: CBC, BMP 09/11/16 05:35 09/11/16 05:35 INR, PTT INR 1.12 (0.82-1.09) 09/07/16 12:50 Assessment/Plan (1) Altered mental status Code(s): R41.82 - ALTERED MENTAL STATUS, UNSPECIFIED (2) Altered awareness, transient Code(s): R40.4 - TRANSIENT ALTERATION OF AWARENESS (3) Atrial fibrillation Code(s): I48.91 - UNSPECIFIED ATRIAL FIBRILLATION (4) Hypoxia Code(s): R09.02 - HYPOXEMIA (5) Acute on chronic diastolic (congestive) heart failure Code(s): I50.33 - ACUTE ON CHRONIC DIASTOLIC (CONGESTIVE) HEART FAILURE (6) Liver cirrhosis Code(s): K74.60 - UNSPECIFIED CIRRHOSIS OF LIVER (7) Pleural effusion Code(s): J90 - PLEURAL EFFUSION, NOT ELSEWHERE CLASSIFIED (8) CHF (congestive heart failure) Code(s): I50.9 - HEART FAILURE, UNSPECIFIED Qualifiers: Qualified Code(s): I50.9 - Heart failure, unspecified (9) End stage renal disease on dialysis Code(s): N18.6 - END STAGE RENAL DISEASE Z99.2 - DEPENDENCE ON RENAL DIALYSIS (10) Hepatic encephalopathy Code(s): K72.90 - HEPATIC FAILURE, UNSPECIFIED WITHOUT COMA (11) Hypothyroidism Code(s): E03.9 - HYPOTHYROIDISM, UNSPECIFIED (12) Lethargy Code(s): R53.83 - OTHER FATIGUE (13) Fluid excess Code(s): E87.70 - FLUID OVERLOAD, UNSPECIFIED Plan -case discussed with healthcare proxy -decided on hospice/comfort measures -HD stopped -medications reviewed, discontinued medications not related to comfort -IV ativan prn, IV benadryl prn -prn morphine for respiratory distress, currently does not require but may need morphine gtt -transfer to med/surg, discontinue telemetry -with HD and lactulose stopped, suspect is imminent
[2016-09-11] MEDS: morphine CARPU-JECT 2 MG/1 ML DISP.SYRIN IVPUSH PRN (15:55)
[2016-09-12] MEDS ORDERED: PT OWN MED DRAWER 7, Y5N ONE ×2 (00:24→03:32)
[2016-09-12] MEDS: ACETAMINOPHEN 325 MG TABLET (FP) PO SCH ×5 (00:33→22:13)
[2016-09-12] MEDS: MUPIROCIN 2% TOPICAL OINTMENT 22 GM TUBE TP SCH ×3 (02:49→22:09)
[2016-09-12] MEDS: PANTOPRAZOLE 40 MG TABLET (FP) PO SCH (09:52)
--- NOTE | 2016-09-12 11:05 | PN ---
Progress Note, Physician History of Present Illness: PULMONARY AWAKE,-RESP DISTRESS,REMAINS HYPOTENSIVE - Current Medication List Current Medications: Active Medications Acetaminophen (Tylenol -) 325 mg PO QID [facility] Last Admin: 09/12/16 09:52 Dose: 325 mg Diphenhydramine HCl (Benadryl Injection -) 12.5 mg IVPUSH Q4H PRN PRN Reason: FOR ITCHING Last Admin: 09/11/16 15:31 Dose: 12.5 mg Guaifenesin (Robitussin -) 10 ml PO Q6H PRN Last Admin: 09/09/16 17:25 Dose: 10 ml Lidocaine (Lidoderm Patch -) 1 patch TP DAILY [facility] Last Admin: 09/11/16 09:25 Dose: 1 patch Lorazepam (Ativan Injection -) 1 mg IVPUSH Q6H PRN PRN Reason: ANXIETY Morphine Sulfate (Morphine Injection -) 2 mg IVPUSH Q3H PRN PRN Reason: PAIN Last Admin: 09/11/16 15:55 Dose: 2 mg Mupirocin (Bactroban 2% Ointment -) 1 applic TP BID [facility] Last Admin: 09/12/16 02:49 Dose: Not Given Pantoprazole Sodium (Protonix -) 40 mg PO DAILY [facility] Last Admin: 09/12/16 09:52 Dose: 40 mg Scopolamine HBr (Transderm-Scop -) 1 patch TD Q72H [facility] Last Admin: 09/11/16 16:38 Dose: 1 patch - Objective Vital Signs: Vital Signs Temperature 98.2 F 09/12/16 08:35 Pulse Rate 80 09/12/16 08:35 Respiratory Rate 18 09/12/16 08:35 Blood Pressure 72/40 09/12/16 08:35 O2 Sat by Pulse Oximetry (%) 95 09/12/16 09:00 Constitutional: Yes: Well Nourished, Calm Eyes: Yes: WNL HENT: Yes: WNL Neck: Yes: WNL Cardiovascular: Yes: Pulse Irregular, S1, S2 Respiratory: Yes: Rales Gastrointestinal: Yes: Normal Bowel Sounds, Soft Extremities: Yes: WNL Edema: No Labs: CBC, BMP Assessment/Plan Assessment/Plan Altered Mental Status resolved Acute Hypercapneic Respiratory Failure/bipap PRN ESRD on HD Acute on Chronic LV Diastolic Heart Failure Atrial Fibrillation RV Dysfunction Pleural Effusions Liver Cirrhosis Hepatic Encephalopathy/Elevated lactulose - Hospice care - O2 as needed - DVT/GI prophylaxis DR HAGER
--- NOTE | 2016-09-12 11:09 | PN ---
Progress Note (short form) - Note Progress Note: Chief Complaint: Events noted, notes reviewed, awake and alert, dyspnea persists , denies any chest pain History of Present Illness: Seen and examined on telemetry. Events noted, notes reviewed, awake and alert, dyspnea persists, denies any chest pain For comfort care Echocardiography dated 08/28/16 revealed RV dilatation with moderate to severe reduced RV function, LVH with normal LV size and function, severe TR with RVSP of 17 mmHg ???, moderate MR Medications: Current Medications Acetaminophen (Tylenol -) 325 mg PO QID [facility] Last Admin: 09/12/16 09:52 Dose: 325 mg Diphenhydramine HCl (Benadryl Injection -) 12.5 mg IVPUSH Q4H PRN PRN Reason: FOR ITCHING Last Admin: 09/11/16 15:31 Dose: 12.5 mg Guaifenesin (Robitussin -) 10 ml PO Q6H PRN Last Admin: 09/09/16 17:25 Dose: 10 ml Lidocaine (Lidoderm Patch -) 1 patch TP DAILY [facility] Last Admin: 09/11/16 09:25 Dose: 1 patch Lorazepam (Ativan Injection -) 1 mg IVPUSH Q6H PRN PRN Reason: ANXIETY Morphine Sulfate (Morphine Injection -) 2 mg IVPUSH Q3H PRN PRN Reason: PAIN Last Admin: 09/11/16 15:55 Dose: 2 mg Mupirocin (Bactroban 2% Ointment -) 1 applic TP BID [facility] Last Admin: 09/12/16 02:49 Dose: Not Given Pantoprazole Sodium (Protonix -) 40 mg PO DAILY [facility] Last Admin: 09/12/16 09:52 Dose: 40 mg Scopolamine HBr (Transderm-Scop -) 1 patch TD Q72H [facility] Last Admin: 09/11/16 16:38 Dose: 1 patch Review of Systems - Review of Systems Constitutional: denies: Chills, Fever Cardiovascular: As noted above Respiratory: denies: Cough or Sputum Production Gastrointestinal: denies: Nausea, Vomiting, Diarrhea, Constipation or Abdominal Pain Neurological: No Symptoms Reported Vital Signs: Last Vital Signs Temp Pulse Resp BP Pulse Ox 98.2 F 80 18 72/40 95 09/12/16 08:35 09/12/16 08:35 09/12/16 08:35 09/12/16 08:35 09/12/16 09:00 Constitutional: No Distress, Calm, Thin Neck: Supple Negative JVD No Bruit Respiratory: Diminished Breath Sounds Bilaterally with Bilateral Scattered Rhonchi Cardiovascular: S1 S2 Irregularly Irregular Grade 2/6 SM Gastrointestinal: Soft Benign Normal Bowel Sounds Ext: No Edema Labs: CBC, BMP 09/11/16 05:35 09/11/16 05:35 ASSESSMENT/PLAN: ASSESSMENT: 1. Acute hypercapneic respiratory failure, resolved 2. Acute on Chronic LV Diastolic failure class III NYHA clasification LV failure , resolving 3. 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 Persistent atrial fibrillation [id number] score of 3 on no A/C 5. Hypothyroidism 6. ESLD with Hepatic Encephalopathy 7. ESRD on HD PLAN: 1. As outlined above for comfort care 2. Not an ideal A/C candidate related to to the above noted ESLD (End Stage Liver Disease) Overall poor prognosis Esdras Toro MD
--- NOTE | 2016-09-12 11:51 | PN ---
Progress Note, Physician Chief Complaint: Mr Rangel is more awake today. Says he is doing well and is without complaints. No cp, sob, n/v. - Current Medication List Current Medications: Active Medications Acetaminophen (Tylenol -) 325 mg PO QID [facility] Last Admin: 09/12/16 09:52 Dose: 325 mg Diphenhydramine HCl (Benadryl Injection -) 12.5 mg IVPUSH Q4H PRN PRN Reason: FOR ITCHING Last Admin: 09/11/16 15:31 Dose: 12.5 mg Guaifenesin (Robitussin -) 10 ml PO Q6H PRN Last Admin: 09/09/16 17:25 Dose: 10 ml Lidocaine (Lidoderm Patch -) 1 patch TP DAILY [facility] Last Admin: 09/11/16 09:25 Dose: 1 patch Lorazepam (Ativan Injection -) 1 mg IVPUSH Q6H PRN PRN Reason: ANXIETY Morphine Sulfate (Morphine Injection -) 2 mg IVPUSH Q3H PRN PRN Reason: PAIN Last Admin: 09/11/16 15:55 Dose: 2 mg Mupirocin (Bactroban 2% Ointment -) 1 applic TP BID [facility] Last Admin: 09/12/16 02:49 Dose: Not Given Pantoprazole Sodium (Protonix -) 40 mg PO DAILY [facility] Last Admin: 09/12/16 09:52 Dose: 40 mg Scopolamine HBr (Transderm-Scop -) 1 patch TD Q72H [facility] Last Admin: 09/11/16 16:38 Dose: 1 patch - Objective Vital Signs: Vital Signs Temperature 98.2 F 09/12/16 08:35 Pulse Rate 80 09/12/16 08:35 Respiratory Rate 18 09/12/16 08:35 Blood Pressure 72/40 09/12/16 08:35 O2 Sat by Pulse Oximetry (%) 95 09/12/16 09:00 Constitutional: Yes: No Distress, Calm Cardiovascular: Yes: Pulse Irregular Respiratory: Yes: Regular, CTA Bilaterally. No: Rales, Rhonchi, Wheezes Gastrointestinal: Yes: Normal Bowel Sounds, Soft. No: Distention, Tenderness Extremities: Yes: WNL Edema: Yes Labs: CBC, BMP 09/11/16 05:35 09/11/16 05:35 INR, PTT INR 1.12 (0.82-1.09) 09/07/16 12:50 Assessment/Plan (1) Altered mental status Code(s): R41.82 - ALTERED MENTAL STATUS, UNSPECIFIED (2) Altered awareness, transient Code(s): R40.4 - TRANSIENT ALTERATION OF AWARENESS (3) Atrial fibrillation Code(s): I48.91 - UNSPECIFIED ATRIAL FIBRILLATION (4) Hypoxia Code(s): R09.02 - HYPOXEMIA (5) Acute on chronic diastolic (congestive) heart failure Code(s): I50.33 - ACUTE ON CHRONIC DIASTOLIC (CONGESTIVE) HEART FAILURE (6) Liver cirrhosis Code(s): K74.60 - UNSPECIFIED CIRRHOSIS OF LIVER (7) Pleural effusion Code(s): J90 - PLEURAL EFFUSION, NOT ELSEWHERE CLASSIFIED (8) CHF (congestive heart failure) Code(s): I50.9 - HEART FAILURE, UNSPECIFIED Qualifiers: Qualified Code(s): I50.9 - Heart failure, unspecified (9) 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
[2016-09-12] MEDS: morphine CARPU-JECT 2 MG/1 ML DISP.SYRIN IVPUSH PRN (12:13)
[2016-09-12] MEDS: LIDOCAINE 5% TOPICAL PATCH TP SCH (14:00)
--- NOTE | 2016-09-12 16:20 | PN ---
Progress Note (short form) - Note Progress Note: Renal Follow up for ESRD on HD Pt seen and examined at the bedside sleeping family at the bedside Vital Signs Temperature 97.8 F 09/12/16 14:00 Pulse Rate 72 09/12/16 14:00 Respiratory Rate 20 09/12/16 14:00 Blood Pressure 70/37 09/12/16 14:00 O2 Sat by Pulse Oximetry (%) 95 09/12/16 09:00 Intake & Output 09/09/16 09/10/16 09/11/16 09/12/16 23:59 23:59 23:59 23:59 Intake Total 420 350 650 300 Balance 420 350 650 300 Weight 128 lb 6.4 oz 131 lb 9.6 oz Gen: NAD CVS: RRR, No M/R Lungs: Dec BS throughout the lung mandujano Abd: soft NT/ND Ext: No edema, clubbing or cyanosis Access: NO thrill or bruit CBC, BMP 09/11/16 05:35 09/11/16 05:35 Current Medications Acetaminophen (Tylenol -) 325 mg PO QID [facility] Last Admin: 09/12/16 14:22 Dose: Not Given Diphenhydramine HCl (Benadryl Injection -) 12.5 mg IVPUSH Q4H PRN PRN Reason: FOR ITCHING Last Admin: 09/11/16 15:31 Dose: 12.5 mg Guaifenesin (Robitussin -) 10 ml PO Q6H PRN Last Admin: 09/09/16 17:25 Dose: 10 ml Lidocaine (Lidoderm Patch -) 1 patch TP DAILY [facility] Last Admin: 09/12/16 14:00 Dose: Not Given Lorazepam (Ativan Injection -) 1 mg IVPUSH Q6H PRN PRN Reason: ANXIETY Morphine Sulfate (Morphine Injection -) 2 mg IVPUSH Q3H PRN PRN Reason: PAIN Last Admin: 09/12/16 12:13 Dose: 2 mg Mupirocin (Bactroban 2% Ointment -) 1 applic TP BID [facility] Last Admin: 09/12/16 14:23 Dose: Not Given Pantoprazole Sodium (Protonix -) 40 mg PO DAILY [facility] Last Admin: 09/12/16 09:52 Dose: 40 mg Scopolamine HBr (Transderm-Scop -) 1 patch TD Q72H [facility] Last Admin: 09/11/16 16:38 Dose: 1 patch A/P This is a 86 year old Gentleman with PMhx of ESRD on HD (MWF), Chronic Cholecystitis, Dementia, DM, Hypertension, Afib with SOB and found to have extrensive pulmonary vascular congestion and hypoxia #ESRD with volume overload with chronic hypotension Hemodysis discontinued Comfort care measures at this time no further labs Morphine PRN at this time Jamir Wilson DO
[2016-09-13] MEDS ORDERED: PT OWN MED DRAWER 7, Y5N ONE (09:27)
[2016-09-13] MEDS ORDERED: ERGOCALCIFEROL (VITAMIN D2) 50,000 UNIT CAPSULE (FP) PO SCH (10:00)
[2016-09-13] MEDS: PANTOPRAZOLE 40 MG TABLET (FP) PO SCH (10:51)
[2016-09-13] MEDS: LIDOCAINE 5% TOPICAL PATCH TP SCH (10:51)
[2016-09-13] MEDS: ACETAMINOPHEN 325 MG TABLET (FP) PO SCH ×3 (10:52→19:00)
[2016-09-13] MEDS: MUPIROCIN 2% TOPICAL OINTMENT 22 GM TUBE TP SCH (10:52)
--- NOTE | 2016-09-13 11:48 | PN ---
Progress Note (short form) - Note Progress Note: PULMONARY DNR/DNI VSS PALE DISTANT B/L ANTERIOR BREATH SOUNDS S1S2 IRREGULAR ABD SOFT NO EDEMA LABS/MEDS/NOTES/IMAGING/ABG REVIEWED Altered Mental Status resolved Acute Hypercapneic Respiratory Failure/bipap PRN ESRD on HD Acute on Chronic LV Diastolic Heart Failure Atrial Fibrillation RV Dysfunction Pleural Effusions Liver Cirrhosis Hepatic Encephalopathy/Elevated lactulose Comfort measures only have been requested please call JACOBO SOTO MD
[2016-09-13] MEDS: morphine CARPU-JECT 2 MG/1 ML DISP.SYRIN IVPUSH PRN (15:54)
--- NOTE | 2016-09-13 16:59 | PN ---
Progress Note, Physician Chief Complaint: Mr Rangel is more awake today. Says he is doing well and is without complaints. No cp, sob, n/v. - Current Medication List Current Medications: Active Medications Acetaminophen (Tylenol -) 325 mg PO QID [facility] Last Admin: 09/13/16 14:19 Dose: 325 mg Diphenhydramine HCl (Benadryl Injection -) 12.5 mg IVPUSH Q4H PRN PRN Reason: FOR ITCHING Last Admin: 09/13/16 12:53 Dose: 12.5 mg Guaifenesin (Robitussin -) 10 ml PO Q6H PRN Last Admin: 09/09/16 17:25 Dose: 10 ml Lidocaine (Lidoderm Patch -) 1 patch TP DAILY [facility] Last Admin: 09/13/16 10:51 Dose: 1 patch Lorazepam (Ativan Injection -) 1 mg IVPUSH Q6H PRN PRN Reason: ANXIETY Morphine Sulfate (Morphine Injection -) 2 mg IVPUSH Q3H PRN PRN Reason: PAIN Last Admin: 09/13/16 15:54 Dose: 2 mg Mupirocin (Bactroban 2% Ointment -) 1 applic TP BID [facility] Last Admin: 09/13/16 10:52 Dose: Not Given Pantoprazole Sodium (Protonix -) 40 mg PO DAILY [facility] Last Admin: 09/13/16 10:51 Dose: 40 mg Scopolamine HBr (Transderm-Scop -) 1 patch TD Q72H [facility] Last Admin: 09/11/16 16:38 Dose: 1 patch - Objective Vital Signs: Vital Signs Temperature 97.3 F L 09/13/16 08:36 Pulse Rate 89 09/13/16 08:36 Respiratory Rate 20 09/13/16 08:36 Blood Pressure 96/47 09/13/16 08:36 O2 Sat by Pulse Oximetry (%) 94 L 09/12/16 21:00 Constitutional: Yes: No Distress, Calm Cardiovascular: Yes: Pulse Irregular. No: Tachycardia, Gallop, Murmur, Rub Respiratory: Yes: Regular, On Nasal O2, Rhonchi. No: Rales, Wheezes Gastrointestinal: Yes: Normal Bowel Sounds, Soft. No: Distention, Tenderness Extremities: Yes: WNL Edema: No Labs: CBC, BMP 09/11/16 05:35 09/11/16 05:35 INR, PTT INR 1.12 (0.82-1.09) 09/07/16 12:50 Assessment/Plan (1) Altered mental status Code(s): R41.82 - ALTERED MENTAL STATUS, UNSPECIFIED (2) Altered awareness, transient Code(s): R40.4 - TRANSIENT ALTERATION OF AWARENESS (3) Atrial fibrillation Code(s): I48.91 - UNSPECIFIED ATRIAL FIBRILLATION (4) Hypoxia Code(s): R09.02 - HYPOXEMIA (5) Acute on chronic diastolic (congestive) heart failure Code(s): I50.33 - ACUTE ON CHRONIC DIASTOLIC (CONGESTIVE) HEART FAILURE (6) Liver cirrhosis Code(s): K74.60 - UNSPECIFIED CIRRHOSIS OF LIVER (7) Pleural effusion Code(s): J90 - PLEURAL EFFUSION, NOT ELSEWHERE CLASSIFIED (8) CHF (congestive heart failure) Code(s): I50.9 - HEART FAILURE, UNSPECIFIED Qualifiers: Qualified Code(s): I50.9 - Heart failure, unspecified (9) End stage renal disease on dialysis Code(s): N18.6 - END STAGE RENAL DISEASE Z99.2 - DEPENDENCE ON RENAL DIALYSIS (10) Hepatic encephalopathy Code(s): K72.90 - HEPATIC FAILURE, UNSPECIFIED WITHOUT COMA (11) Hypothyroidism Code(s): E03.9 - HYPOTHYROIDISM, UNSPECIFIED (12) Lethargy Code(s): R53.83 - OTHER FATIGUE (13) Fluid excess Code(s): E87.70 - FLUID OVERLOAD, UNSPECIFIED Plan -case d/w hospice service -off of HD, appropriate for inpatient hospice -continue medications for comfort measures
[2016-09-14 05:43] VITALS: BP 71/24; PULSE 37; TEMP 98.3
--- NOTE | 2016-09-14 08:50 | PN ---
Progress Note (short form) - Note Progress Note: Patient seen and examined Chart reviewed. DNR/DNI status noted. Appears pre- terminal with slow deep respirations, poorly responsive. Labs and further invasive measures withheld. Comfort care. Selected Entries 09/14/16 05:42 Temperature 98.3 F Pulse Rate 37 L Respiratory 18 Rate Blood Pressure 71/24 Chest Clear with slow deep respirations Cor Irregular rhythm Abd Soft non-tender Ext No edema Feet cool to touch cyanotic Assessment and Plan Continue comfort care honoring DNR/DNI Appears pre-terminal this AM H/O AFib ESRD, Hepatic Failure CHF noted
[2016-09-14] MEDS: ACETAMINOPHEN 325 MG TABLET (FP) PO SCH (10:30)
[2016-09-14] MEDS: PANTOPRAZOLE 40 MG TABLET (FP) PO SCH (10:30)
[2016-09-14] MEDS: MUPIROCIN 2% TOPICAL OINTMENT 22 GM TUBE TP SCH (10:30)
[2016-09-14] MEDS: LIDOCAINE 5% TOPICAL PATCH TP SCH (10:30)
== END 2016-09-14 12:30 | disposition expired | DRG 163 ==
LOC: JER 23:16 → JERBED 08-27 02:54 → UNDOADMIN 08-27 02:54 → JERBED 08-27 06:15 → JICU 08-27 12:09 → J4W 08-29 18:52 → UNDODISIN 08-30 18:23 → J7W 09-12 15:45
PROVIDERS: ADMIT Internal Medicine; ATTEND Internal Medicine
PROC: 5A09557 Assistance with Respiratory Ventilation, Greater than 96 Consecutive Hours, Continuous Positive Airway Pressure (ICD-10-PCS; 2016-08-27)
PROC: 5A1D60Z (ICD-10-PCS; 2016-08-27)
PROC: 057 Upper Veins, Dilation (ICD-10-PCS; 2016-09-07)
PROC: 03723ZZ Dilation of Innominate Artery, Percutaneous Approach (ICD-10-PCS; 2016-09-07)
PROC: B50MYZZ Plain Radiography of Right Upper Extremity Veins using Other Contrast (ICD-10-PCS; 2016-09-07)
PROC: 05C53ZZ Extirpation of Matter from Right Subclavian Vein, Percutaneous Approach (ICD-10-PCS; principal; 2016-09-07 17:00)
DX: J96.02 Acute respiratory failure with hypercapnia (principal); N18.6 End stage renal disease; I50.33 Acute on chronic diastolic (congestive) heart failure; J44.1 Chronic obstructive pulmonary disease with (acute) exacerbation; N13.8 Other obstructive and reflux uropathy; I48.1 Persistent atrial fibrillation; I13.2 Hypertensive heart and chronic kidney disease with heart failure and with stage 5 chronic kidney disease, or end stage renal disease; T82.868A Thrombosis due to vascular prosthetic devices, implants and grafts, initial encounter; K72.90 Hepatic failure, unspecified without coma; E11.9 Type 2 diabetes mellitus without complications; D64.9 Anemia, unspecified; F03.90 Unspecified dementia, unspecified severity, without behavioral disturbance, psychotic disturbance, mood disturbance, and anxiety; I25.10 Atherosclerotic heart disease of native coronary artery without angina pectoris; K21.9 Gastro-esophageal reflux disease without esophagitis; K74.69 Other cirrhosis of liver; E03.9 Hypothyroidism, unspecified; K81.1 Chronic cholecystitis; E78.00 Pure hypercholesterolemia, unspecified; K63.5 Polyp of colon; Z99.2 Dependence on renal dialysis; Y84.6 Urinary catheterization as the cause of abnormal reaction of the patient, or of later complication, without mention of misadventure at the time of the procedure; Y92.89 Other specified places as the place of occurrence of the external cause; Z66 Do not resuscitate; Z95.1 Presence of aortocoronary bypass graft; Z87.891 Personal history of nicotine dependence
CPT/HCPCS: 36415; 36600; 71010-TC; 74230-TC; 76000-TC; 76705-TC; 80048; 80053; 82140; 82172; 82247; 82465; 82550; 82565; 82803; 82947; 82977; 83010; 83735; 83883; 84100; 84450; 84460; 84478; 84484; 84520; 85025; 85027; 85610; 86704; 86706; 86708; 86803; 87340; 92611-GN; 93005; 93010; 93306-TC; 94660; 97116-GP; 97162-PG; 99285-25; J1644; P9047